=== PATIENT | male | born 1935 | race Two or more races ===

== ENCOUNTER → 2024-04-17 | Outpatient (CLI) | payer MEDICARE, BC, SELFPAY ==
[2024-04-20 22:02] LABS: PSA, Free 1.03 ng/mL; PSA, Total 8.9 ng/mL (< OR = 4.0)
[2024-04-21 06:52] LABS: PSA, % Free 12 % (calc) (>25)
== END | disposition home or self-care (01) ==
LOC: COPL 16:32
PROVIDERS: PCP Internal Medicine; Referring Provider Urology; Visit Provider Urology
DX: N40.1 Benign prostatic hyperplasia with lower urinary tract symptoms (principal)
CPT/HCPCS: 36415; 84153; 84154

== ENCOUNTER → 2024-04-21 | Outpatient (BNVA) | payer MEDICARE, BC, SELFPAY | END | disposition home or self-care (01) | PROVIDERS: PCP Internal Medicine Cardiovascular Disease; Referring Provider Internal Medicine Cardiovascular Disease; Visit Provider Urology | DX: R97.20 Elevated prostate specific antigen [PSA] (principal); I48.91 Unspecified atrial fibrillation; I10 Essential (primary) hypertension; E78.00 Pure hypercholesterolemia, unspecified; E11.9 Type 2 diabetes mellitus without complications | CPT/HCPCS: 99212; G0463 ==

== ENCOUNTER → 2024-05-25 | Outpatient (CLI) | payer MEDICARE, SELFPAY ==
[2024-05-25 12:09] LABS: Collection Type, Urine Clean Catch
[2024-05-25 12:35] LABS: Bilirubin,Urine Negative (Negative); Blood,Urine Negative (Negative); Clarity,Urine Clear (Clear/Hazy); Color,Urine Lt-Yellow (Lt Yel-Yel); Glucose, Urine Negative (Negative); Ketones,Urine Negative (Negative); Leukocyte Esterase,Urine Negative (Negative); Nitrite,Urine Negative (Negative); PH,Urine 7.5 (5.0-7.0); Protein,Urine Negative (Neg - Trace); RBC,Urine 2 /hpf (0-3); Squamous Epithelial Cell,Urine 1 /hpf (0-5); Urobilinogen,Urine Negative mg/dL (0.0-1.0); WBC,Urine 2 /hpf (0-5)
[2024-05-25 12:38] LABS: Albumin, Serum 4.6 gm/dL (3.4-4.8); Anion Gap 7 (7-16); BUN/Creatinine Ratio 21 Ratio (12-20); Blood Urea Nitrogen 30 mg/dL (9-23); Calcium 9.6 mg/dL (8.3-10.6); Calcium (Corrected) 9.6 mg/dL (8.5-10.1); Carbon Dioxide 29.2 mMol/L (20.0-31.0); Chloride 103 mMol/L (98-107); Creatinine (Component) 1.4 mg/dL (0.6-1.3); Glucose 106 mg/dL (74-106); Osmolality,Calculated 283 (275-295); Parathyroid Hormone Intact 95.7 pg/ml (18.5-88.0); Phosphorous 3.3 mg/dL (2.4-5.1); Potassium 5.2 mMol/L (3.4-5.1); Sodium 139 mMol/L (136-145); eGFR 49 See Note
[2024-05-25 12:42] LABS: Creatinine MALB Rnd Ur 19 mg/dL (30-125); Microalbumin Creat Ratio 68 mg/gCrea (<30); Microalbumin, Random Urine 13 mg/L (0-300)
== END | disposition home or self-care (01) ==
PROVIDERS: PCP Internal Medicine; Referring Provider Internal Medicine; Visit Provider Internal Medicine
DX: I12.9 Hypertensive chronic kidney disease with stage 1 through stage 4 chronic kidney disease, or unspecified chronic kidney disease (principal); E11.22 Type 2 diabetes mellitus with diabetic chronic kidney disease; N18.30 Chronic kidney disease, stage 3 unspecified
CPT/HCPCS: 36415; 80069; 81001; 82043; 82570; 83970

== ENCOUNTER → 2024-06-02 | Outpatient (CLI) | payer MEDICARE, SELFPAY ==
--- NOTE | 2024-06-02 15:00 | XR_ITS ---
Examination: Retroperitoneal ultrasound, complete Technique: Multiple high resolution grayscale images of the retroperitoneum obtained, including kidneys and bladder. Exam date and time:June 02, 2024 1515 hrs. Indications: Acute renal insufficiency on laboratory examination May 25, 2024 Findings: Right kidney 9.5 x 7.1 x 7.3 cm cortex 1.7 cm Multiple renal cysts, the largest in the lower pole 15 x 17 mm Solid mass in the anterior mid lateral kidney 9 x 8 x 1.1 cm hyperechoic Left kidney 10.8 x 4.9 x 5.1 cm cortex 1.2 cm Upper pole cyst 21 mm Moderate bilateral renal parenchymal scar formation No bladder mass or bladder calculi Bladder prevoid volume 2 38 cc Prostate volume 24 cc, suspicious for solid mass anterior to the prostate 16 x 19 x 27 mm Impression: Recommend CT scan abdomen pelvis post intravenous contrast to assess hyperechoic mass left kidney 9 x 8 x 11 mm as well as to exclude solid mass anterior to the prostate 16 x 19 x 27 mm
== END | disposition home or self-care (01) ==
LOC: CDIM 14:47
PROVIDERS: PCP Internal Medicine; Referring Provider Internal Medicine; Visit Provider Internal Medicine
DX: N28.89 Other specified disorders of kidney and ureter (principal)
CPT/HCPCS: 76770

== ENCOUNTER 2024-06-04 22:02 | Emergency (ER) | payer MEDICARE, SELFPAY ==
[2024-06-04 22:03] VITALS: BP 216/108; PULSE 65; RESP 16; TEMP 36.3; O2SAT 99; BMI 25.8
--- NOTE | 2024-06-04 22:12 | EDRME_ITS ---
Rapid Medical Screening Exam E Arrival date/time: 06/04/24 22:02 CC: Hypertension mild headache HPI onset approximately 4:00 today, the patient is not under any distress took his amiodarone this morning denies chest pain shortness of breath or difficulty breathing no prior history of bed hypertension as such. Patient is awake alert oriented EMS report hypertension but no other abnormal lab results. Review of the laboratory records show blood drawn on May 25 that showed a mildly elevated creatinine of 1.4. Currently the patient is resting comfortably will order CMP and urine to determine if there are no signs of endorgan damage. Patient is awake alert oriented nontoxic- appearing and not in any acute distress. Time Seen by Provider: 06/04/24 22:08 Vital signs: Vital Signs Temperature 97.4 F 06/04/24 22:03 Pulse Rate 65 06/04/24 22:03 Respiratory Rate 16 06/04/24 22:03 Blood Pressure 216/108 H 06/04/24 22:03 Pulse Oximetry (%) 99 06/04/24 22:03 Oxygen Delivery Method Room Air 06/04/24 22:03
[2024-06-04 22:23] VITALS: PULSE 68; RESP 18; O2SAT 99
--- NOTE | 2024-06-04 22:30 | EDNOTE_ITS ---
ED Abdominal Pain RME/HPI General Chief Complaint: Abdominal Pain Stated complaint: HYPERTENSION Time seen by provider: 06/04/24 22:08 Arrival date/time: 06/04/24 22:02 Source: patient Mode of arrival: ambulatory Limitations: no limitations RME / HPI RME / HPI narrative: 06/04/24 22:02 CC: Hypertension mild headache HPI onset approximately 4:00 today, the patient is not under any distress took his amiodarone this morning denies chest pain shortness of breath or difficulty breathing no prior history of bed hypertension as such. Patient is awake alert oriented EMS report hypertension but no other abnormal lab results. Review of the laboratory records show blood drawn on May 25 that showed a mildly elevated creatinine of 1.4. Currently the patient is resting comfortably will order CMP and urine to determine if there are no signs of endorgan damage. Patient is awake alert oriented nontoxic- appearing and not in any acute distress. Dr. Sawyer?s Main ED Evaluation: An 88-year-old male with a history of hypertension, accompanied by his son, presents to the emergency department via ambulance for evaluation of elevated blood pressure. The patient reports that he took his blood pressure medication as scheduled today; however, upon checking his blood pressure this evening, he noted it was elevated. He contacted Dr. Capone, who advised him to take an additional 5 mg of Norvasc, which he took at 7 PM. Upon rechecking his blood pressure, he found no improvement and subsequently took another 5 mg of Norvasc. Due to the persistent elevation and lack of improvement, his family became concerned and activated EMS for further evaluation. The patient denies any associated symptoms, including pain. No additional medical complaints were reported. Related Data Home Medications ?Medication ?Instructions ?Recorded ?Confirmed metformin 1,000 mg tablet 1,000 mg PO QDAC #0 tabs 02/26/14 03/06/24 (Glucophage) amiodarone 200 mg tablet 200 mg PO QDAY 07/24/19 03/06/24 atorvastatin 10 mg tablet (Lipitor) 10 mg PO QDAY 09/06/23 03/06/24 Allergies Allergy/AdvReac Type Severity Reaction Status Date / Time Sulfa (Sulfonamide Allergy Mild Rash Verified 03/06/24 10:50 Antibiotics) Review of Systems Review of Systems Systems Reviewed: All systems reviewed, normal except as documented ED Exam Narrative Physical exam: GENERAL APPEARANCE: AxOx4, generally well-appearing, no acute distress. HEENT: NC, AT. MMM. EOMI, clear conjunctiva, oropharynx clear. NECK: Supple without lymphadenopathy. No stiffness or restricted ROM. HEART: Normal rate and regular rhythm, normal S1/S1, no m/r/g LUNGS: CTAB, moving air well. No crackles or wheezes are heard. ABDOMEN: Soft, nontender, nondistended with good bowel sounds heard. BACK: No midline C/T/L spine pain or deformity, No CVAT, no obvious deformity. EXTREMITIES: Without cyanosis, clubbing or edema. MUSCULOSKELETAL: FROM of all major joints, no chest tenderness NEUROLOGICAL: Grossly nonfocal. Alert and oriented, moving all 4 extremities. CN not formally tested but appear grossly intact. Observed to ambulate with normal gait. Skin: Warm and dry without any rash. General Limitations: Present no limitations Course Quality Measures none Orders Category Date Time Status Saline [Insert IV] NOW Care 06/04/24 22:09 Active CMP [Comprehensive Metabolic Panel] Stat Lab 06/04/24 22:18 Completed Urinalysis Stat Lab 06/04/24 22:09 Ordered hydrALAZINE INJ [Apresoline Inj] Med 06/04/24 22:09 Discontinued 20 mg IV X1 ONE Vital Signs Vital signs: Vital Signs Temperature 97.4 F 06/04/24 22:03 Pulse Rate 65 06/04/24 22:03 Respiratory Rate 16 06/04/24 22:03 Blood Pressure 216/108 H 06/04/24 22:03 Pulse Oximetry (%) 99 06/04/24 22:03 Oxygen Delivery Method Room Air 06/04/24 22:03 Abdominal Pain MDM MDM Narrative MDM Narrative:: Scribe Attestation: I, Rosalia Cuba, am scribing for and in the presence of Dr. Sawyer. Provider Notation: Although this document has been carefully reviewed, there may still be some phonetic and other typographical errors. These errors are purely grammatical due to imperfections in the software program and should not be construed in any way to compromise the substance of the patient's medical care during this visit. Patient data External records reviewed:: [facility] previous records and EMS form Clinical information provided by:: patient and EMS Social determinants that could affect healthcare access:: none Patient has the following chronic illnesses:: See PMH How is presenting disease/condition affected by chronic disease/condition?: exacerbated by Evaluation data The following diagnostics were reviewed and interpreted by me:: lab results Lab and/or radiology exams considered but not ordered:: n/a Interpretation Summary: See narrative Medications / Prescriptions Medications or Prescriptions considered but not ordered:: n/a Medication administrations:: Medication Administration History Discontinued Medications Hydralazine HCl (Hydralazine Inj 20 Mg/Ml Vial) 20 mg IV X1 ONE Stop: 06/04/24 22:10 Last Admin: 06/04/24 22:34 Dose: 20 mg Documented By: MC as above Consultations Consultation(s) initiated? (list below): No Diagnosis Differential diagnosis abdominal pain: other (Hypertension, Hypertension urgency, Hypertension emergency) Most likely diagnosis given after review of the tests above:: Hypertension Admission Indicated Admission indicated?: not indicated Admission Request Was there a request for admission?: No Disposition Plan Disposition Plan: Discharge Discharge Attestation Discharge Attestation: The patient and all family members were given an opportunity to ask questions and understood the discharge instructions. Discharge instructions specifically effects, indications for sooner follow up or return to the emergency department, and the expected course of current diagnosis. Patient condition: Stable Discharge Plan Plan Patient Disposition: HOME (Self Care) Prescriptions/Referrals Prescriptions/Med Rec: No Action atorvastatin [Lipitor] 10 mg tablet 10 mg PO QDAY metformin [Glucophage] 1,000 MG tablet 1,000 mg PO QDAC Qty: 0 amiodarone 200 mg Tablet 200 mg PO QDAY Problem List Clinical Impression: Hypertension Patient/Caregiver Discharge Instructions Education Materials: ED Hypertension, Established Additional Instructions: Follow-up with your primary care doctor in 1 to 2 days for recheck. You can return to the emergency department sooner symptoms worsen or if you notice any new, concerning issues. Print Language: Upper Sorbian Stand Alone Forms: [facility] Award Info., Patient Portal Info Letter
[2024-06-04 22:34] VITALS: BP 226/109; PULSE 64
[2024-06-04] MEDS: hydrALAZINE INJ 20 MG/ML VIAL IV (22:34)
[2024-06-04 23:03] VITALS: BP 139/71; PULSE 69; RESP 18; O2SAT 98
[2024-06-04 23:10] LABS: Alanine Aminotransferase 29 U/L (10-49); Albumin, Serum 4.7 gm/dL (3.4-4.8); Albumin/Globulin Ratio 1.4 (1.2-2.2); Alkaline Phosphatase 73 U/L (46-116); Anion Gap 8 (7-16); Aspartate Amino Transferase 28 U/L (0-34); BUN/Creatinine Ratio 17 Ratio (12-20); Bilirubin,Total 0.5 mg/dL (0.3-1.2); Blood Urea Nitrogen 22 mg/dL (9-23); Calcium 10.3 mg/dL (8.3-10.6); Calcium (Corrected) 10.3 mg/dL (8.5-10.1); Carbon Dioxide 25.8 mMol/L (20.0-31.0); Chloride 105 mMol/L (98-107); Creatinine (Component) 1.3 mg/dL (0.6-1.3); Estimated Creatinine Clearance 38.7 mL/min (>60); Globulin 3.4 gm/dL (2.3-3.5); Glucose 110 mg/dL (74-106); Osmolality,Calculated 281 (275-295); Potassium 4.5 mMol/L (3.4-5.1); Sodium 139 mMol/L (136-145); Total Protein 8.1 gm/dL (5.7-8.2); eGFR 53 See Note
== END 2024-06-04 23:20 | disposition home or self-care (01) ==
LOC: SERX 23:28
PROVIDERS: Registered Nurse General Practice; Emergency Provider Emergency Medicine; PCP Internal Medicine
DX: I10 Essential (primary) hypertension (principal)
CPT/HCPCS: 36415; 80053; 81001; 99284; J0360

== ENCOUNTER 2024-06-16 10:24 | Emergency (ER) | payer MEDICARE, BC, SELFPAY ==
[2024-06-16 10:43] VITALS: PULSE 66; RESP 19; O2SAT 97
[2024-06-16 10:51] VITALS: BP 131/60; PULSE 70; RESP 16; TEMP 33.3; O2SAT 98
[2024-06-16 10:52] VITALS: BMI 25.1
[2024-06-16 11:04] VITALS: TEMP 33.3
[2024-06-16] MEDS: ONDANSETRON INJ 2 MG/ML INJ 2 ML 4 MG IV (11:24)
[2024-06-16] MEDS: MORPHINE SULF INJ 10 MG/ML VIAL 4 MG IVP (11:26)
--- NOTE | 2024-06-16 11:27 | EKG_ITS ---
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
--- NOTE | 2024-06-16 11:33 | XR_ITS ---
Examination: AP chest single view TECHNIQUE: AP portable upright chest single view Exam date and time: June 16, 2024 1137 hours Comparison March 10, 2014 INDICATIONS: Shortness of breath today. FINDINGS: Normal heart size Accentuation basilar bronchovascular markings Prominent osteopenia No pulmonary edema IMPRESSION: Bibasilar bronchitis versus early bronchopneumonia, clinical correlation advised
--- NOTE | 2024-06-16 11:33 | XR_ITS ---
Examination: CT chest, without intravenous contrast. CT abdomen, without intravenous contrast. CT pelvis, without intravenous contrast. 2-D sagittal and coronal reconstructions. 3-D reconstructions. Date and time of exam:June 16, 2024 1252 hours INDICATIONS: Patient fell today with injury to the chest and abdomen, chest pain abdomen pain CTDI vol (mgy) 8.53 DLP (MGycm)646 Technique: Multiple CT images, 3.0 mm slice thickness, obtained chest, abdomen, pelvis, with the high-resolution 64 slice scanner.. Sagittal and coronal 2-D reconstructions are obtained. 3-D reconstructions Low dose protocols were performed. One or more of the following dose reduction techniques were used; automated exposure control, adjustment of the mA and/or KV according to patient size, use of iterative reconstruction technique. Findings: Thoracic aorta pulmonary arteries appear intact on this noncontrast study No pneumothorax or hemothorax Significant vascular congestion The manubrium, the body the sternum are intact No thoracic vertebral body compression fracture No acute rib fractures No liver splenic or renal laceration, no perinephric hematoma Aorta normal size and intact Absent gallbladder No pancreatic mass No free blood in the abdomen Negative for pneumoperitoneum Normal appendix 20 mm fat-containing umbilical hernia Colonic diverticulosis Urinary bladder intact Transverse prostate dimension 4.6 cm Hips bones of the pelvis sacral segments lumbar vertebral bodies intact Advanced disc narrowing L5-S1 IMPRESSION: Thoracic aorta pulmonary arteries intact No hemopericardium pneumothorax or hemothorax Prominent vascular congestion No abdominal parenchymal laceration Abdominal aorta intact No free blood in the abdomen or pelvis Osseous structures appear intact
--- NOTE | 2024-06-16 11:33 | XR_ITS ---
Examination: CT brain head without contrast. 2-D sagittal coronal reconstructions Date and time of exam:June 16, 2024 1240 hours INDICATIONS: Patient fell yesterday with injury to the head, head pain COMPARISON: March 10, 2024 CTDI: vol (mGy):51.9 DLP: (mGycm):1090 Technique: Multiple CT axial sections of the brain have been obtained, 5 mm slice thickness. Contrast has not been administered. 2-D sagittal, coronal reconstructions have been obtained Low dose protocols were performed. One or more of the following dose reduction techniques were used; automated exposure control, adjustment of the mA and/or KV according to patient size, use of iterative reconstruction technique. Findings: No significant ventricular enlargement. Intra-axial or extra-axial hemorrhage density is not seen. No mass effect or midline shift Basal cisterns are not remarkable. Fourth ventricle is midline. Cranial vault intact. Impression: Negative for acute hemorrhage, mass effect or midline shift
--- NOTE | 2024-06-16 11:33 | XR_ITS ---
Examination: CT cervical spine without contrast 2-D sagittal reconstructions 2-D coronal reconstructions 3-D reconstructions. Exam date and time:June 16, 2024 1240 hours INDICATIONS: Patient fell today with into the neck, neck pain CTDI:vol (mGy) 7.82 DLP: (mGycm) 171 Technique: Multiple 2 mm axial sections of the cervical spine have been obtained. The coronal and sagittal reconstructions have been obtained. 3-D reconstructions have been obtained. Low dose protocols were performed. One or more of the following dose reduction techniques were used; automated exposure control, adjustment of the mA and/or KV according to patient size, use of iterative reconstruction technique. Findings: Axial sections demonstrate intact base of the skull. C1 exhibit satisfactory relationship to the odontoid. No acute cervical vertebral body fracture seen. Alignment posterior spinous processes satisfactory. Impression: No acute cervical fracture.
[2024-06-16 11:51] LABS: Base Excess, Venous -2 (-3-3); O2 Saturation, Venous 98 % (96-97); PCO2, Venous 43 mmHg (36-56); PO2, Venous 131 mmHg (15-58); pH, Venous 7.35 (7.33-7.66)
[2024-06-16 11:52] LABS: Lactate (Lactic Acid) 1.3 mMol/L (0.4-2.0)
[2024-06-16 11:55] LABS: Basophils % (Auto) 1 % (0-2.5); Eosinophils # (Auto) 0.2 Thou/mm3 (0.0-0.5); Eosinophils % (Auto) 2 % (0-10); Hematocrit 41.5 % (41.0-53.0); Hemoglobin 14.4 g/dL (13.5-16.0); Immature Granulocytes % (Auto) 0 % (0-0); Immature Granulocytes Auto 0.02 Thou/mm3 (0.00-0.00); Lymphocytes # (Auto) 1.9 Thou/mm3 (1.0-4.8); Lymphocytes % (Auto) 28 % (10-50); Mean Corpuscular HGB Conc 34.7 g/dl (31.0-37.0); Mean Corpuscular Hemoglobin 29.5 pg (25.0-35.0); Mean Corpuscular Volume 85 fL (80-100); Monocytes # (Auto) 0.6 Thou/mm3 (0.0-0.8); Monocytes % (Auto) 9 % (0-12); Neutrophils # (Auto) 4.1 Thou/mm3 (1.8-7.7); Neutrophils % (Auto) 60 % (37-80); Nucleated Red Blood Cell % 0 /100 WBC (0); Platelet Count 184 Thou/mm3 (140-440); RDW Standard Deviation 45.4 fL (35.1-43.9); Red Blood Count 4.88 Miln/mm3 (4.50-5.90); White Blood Count 6.9 Thou/mm3 (3.8-10.6)
[2024-06-16] MEDS: HYDROmorphone INJ 2 MG/ML VIAL 1 MG IVP (12:03)
--- NOTE | 2024-06-16 12:05 | PD.EDHA ---
ED Headache RME/HPI General Chief Complaint: Headache Stated Complaint: HEADACHE/ WEAKNESS Time Seen by Provider: 06/16/24 11:15 Arrival date/time: 06/16/24 10:24 RME / HPI RME / HPI Narrative: This section includes all my notes and documentations, including HPI, PE, and ED course.? Thomas Ash MD HPI: 88 year old male here with severe headache in the back of the neck area since last night. Was battling high BP at home all night last night. Taking multiple medications, including subligual NTG and oral BP medications, repeating as needed with high BP. No speech or visual impairment. No loss of power in the arms or legs. No chest pain or SOB. Some nausea, no vomiting. No neck pain or stiffness. No other complaints. ROS: All negative except as documented in HPI. Physical Exam: General:? Alert and oriented.? In obvious pain. Eyes:? Conjunctivae and lids clear.? PERRL. EOMI. ENT:? No nasal congestion.? Neck:? Supple.? No carotid bruit. No JVD. Heart:? RRR.? Lungs:? No respiratory distress.? Good air movement.? No rhonchi, wheezing, rales.?? Abdomen:? Soft and nontender.?? Legs:? No clubbing, cyanosis, edema.? Skin:? Warm and dry.?? Neuro:? Alert and oriented X 3.??CN 2-12 grossly normal. No peripheral motor deficits. I reviewed all diagnostic test results. My interpretation of the EKG is?NSR (61 bpm) with no ST-T changes. My interpretation of the chest x-ray is no acute findings. My review of the head CT report is?no acute hemorrhage, mass effect, or midline shift. My review of the cervical spine CT report is no acute cervical fracture. My review of the chest/abdomen/pelvic CT report is no hemopericardium pneumothorax or hemothorax. Blood tests unremarkable. At this point, diagnoses include?severe headache (most likely from lower BP at home too rapidly). Treatment here included?Zofran and Morphine and Dilaudid. Significant improvement noted. Based on my best medical judgment, made decision no further evaluation or treatment indicated at this time.? Patient understands and agrees to the discharge instructions customized and printed, see below. Discharge Instructions from Dr. Ash printed for you: 1. After extensive evaluation, fortunately there is no life-threatening condition. Such as stroke or brain tumor or heart attack or blood poisoning. 2. And there is no very serious injury, such as brain injury or broken neck or broken back or other broken bone or internal organ injury. 3. Most of your symptoms may have been related to taking too many BP medications and lowering your BP too fast. 4. For your high BP, take clonidine 0.1 mg pill(s) about 12 hours apart in the morning and at bedtime as needed based on SBP (higher number of BP): 1 pill if SBP > 130. 2 pills if SBP > 150. 3 pills if SBP > 170. 4 pills if SBP > 190. Do this until you are seen by your private doctor. 5. See your private doctor on 06/19/2024 for recheck and further care. Ask to review all test results and official radiology reports, to make sure you receive all necessary follow-ups and monitoring. 6. Seek immediate medical care with worsening or with any concerns. Thomas Ash MD Related Data Home Medications ?Medication ?Instructions ?Recorded ?Confirmed metformin 1,000 mg tablet 1,000 mg PO QDAC #0 tabs 02/26/14 03/06/24 (Glucophage) amiodarone 200 mg tablet 200 mg PO QDAY 07/24/19 03/06/24 atorvastatin 10 mg tablet (Lipitor) 10 mg PO QDAY 09/06/23 03/06/24 Previous Rx's ?Medication ?Instructions ?Recorded acetaminophen 300 mg-codeine 30 mg 2 tab PO TID PRN pain #20 tabs 06/16/24 tablet clonidine HCl 0.1 mg tablet 0.1 mg PO BID #60 tabs 06/16/24 Allergies Allergy/AdvReac Type Severity Reaction Status Date / Time Sulfa (Sulfonamide Allergy Mild Rash Verified 03/06/24 10:50 Antibiotics) Review of Systems Review of Systems Systems Reviewed: All systems reviewed, normal except as documented Past Medical History Past Medical History CARDIAC: Positive Atrial Fibrillation, Hypercholesterolemia and Hypertension GASTROINTESTINAL: Positive Gastroesophageal Reflux Disease ENDOCRINE: Positive Diabetes Mellitus Type 2 Social History SMOKING STATUS: Never smoker ED Exam Narrative Physical exam: As noted in HPI Course Quality Measures none Orders Category Date Time Status Bedside COVID-19 Antigen Test NOW Care 06/16/24 11:27 Completed Bedside Influenza A&B Antigen Test NOW Care 06/16/24 11:27 Completed EKG (ED ONLY) *Do not use* NOW Care 06/16/24 11:27 Completed Initiate Warming Therapy NOW Care 06/16/24 11:04 Completed Insert IV NOW Care 06/16/24 11:13 Completed Straight [In and Out Catheter] X1 Care 06/16/24 11:[address] cervical spine wo con Stat Exams 06/16/24 11:[address] chest abdomen pelvis wo Stat Exams 06/16/24 11:[address] head/brain wo con Stat Exams 06/16/24 11:33 Completed EKG (ED Only) Stat Exams 06/16/24 11:27 Draft XR chest 1V portable Stat Exams 06/16/24 11:33 Completed Amylase Stat Lab 06/16/24 11:25 Completed BNP [B-Type Natriuretic Peptide] Stat Lab 06/16/24 11:25 Completed Bilirubin,Direct Stat Lab 06/16/24 11:25 Completed Blood Culture (Lab) Stat Lab 06/16/24 12:00 Results CBC Stat Lab 06/16/24 11:25 Completed CRP [C-Reactive Protein] Stat Lab 06/16/24 11:25 Completed Comprehensive Metabolic Panel Stat Lab 06/16/24 11:25 Completed ESR [Sed Rate (ESR)] Stat Lab 06/16/24 11:25 Completed Lactate (Lactic Acid) Stat Lab 06/16/24 11:25 Completed Lipase Stat Lab 06/16/24 11:25 Completed Magnesium Stat Lab 06/16/24 11:25 Completed PT [Prothrombin Time with INR] Stat Lab 06/16/24 11:25 Completed PTT [Partial Thromboplastin Time] Stat Lab 06/16/24 11:25 Completed Procalcitonin Stat Lab 06/16/24 11:25 Completed TSH [Thyroid Stimulating Hormone] Stat Lab 06/16/24 11:25 Completed Troponin I Stat Lab 06/16/24 11:25 Completed VBG [Venous Blood Gas] Stat Lab 06/16/24 11:25 Completed HYDROmorphone INJ [Dilaudid Inj] Med 06/16/24 11:46 Discontinued 1 mg IVP X1 ONE Morphine Inj Med 06/16/24 11:14 Discontinued 4 mg IVP X1 ONE Ondansetron Inj [Zofran Inj] Med 06/16/24 11:14 Discontinued 4 mg IV X1 ONE Sodium Chloride 0.9% 1000 ml [Ns] 1,000 ml Med 06/16/24 12:46 Discontinued IV 999 mls/hr Vital Signs Vital signs: Vital Signs Temperature 92.0 F L 06/16/24 10:51 Pulse Rate 70 06/16/24 10:51 Respiratory Rate 16 06/16/24 10:51 Blood Pressure 131/60 H 06/16/24 10:51 Pulse Oximetry (%) 98 06/16/24 10:51 Oxygen Delivery Method Room Air 06/16/24 10:51 Oxygen Flow Rate 97 06/16/24 10:51 Pulse ox is 97% on room air which is adequate. Headache Patient data External records reviewed:: [facility] previous records (I reviewed ED visit on 06/04/2024) Clinical information provided by:: patient and family (Daughter adds to hpi ) Social determinants that could affect healthcare access:: none Patient has the following chronic illnesses:: HTN, DM How is presenting disease/condition affected by chronic disease/condition?: exacerbated by Evaluation data The following diagnostics were reviewed and interpreted by me:: lab results, radiology exam(s) and EKG tracing(s) (My interpretation of the EKG: NSR (61 bpm) with no ST-T changes. Thomas Ash MD) Lab and/or radiology exams considered but not ordered:: None Interpretation Summary: My interpretation of the chest x-ray is bibasilar bronchitis versus early bronchopneumonia. My review of the head CT report is?no acute hemorrhage, mass effect, or midline shift. My review of the cervical spine CT report is no acute cervical fracture. My review of the chest/abdomen/pelvic CT report is no hemopericardium pneumothorax or hemothorax. Medications / Prescriptions Medications or Prescriptions considered but not ordered:: None Medication administrations:: Medication Administration History Discontinued Medications Hydromorphone HCl (Hydromorphone Inj 2 Mg/Ml Vial) 1 mg IVP X1 ONE Stop: 06/16/24 11:47 Last Admin: 06/16/24 12:03 Dose: 1 mg Documented By: DB Sodium Chloride (Ns) 1,000 mls @ 999 mls/hr IV .Q1H1M ONE Stop: 06/16/24 13:46 Last Infusion: 06/16/24 15:05 Dose: Infused Documented By: Admin: 06/16/24 13:14 Dose: 999 mls/hr Documented By: ANTHONY Morphine Sulfate (Morphine Sulf Inj 10 Mg/Ml Vial) 4 mg IVP X1 ONE Stop: 06/16/24 11:15 Last Admin: 06/16/24 11:26 Dose: 4 mg Documented By: ANTHONY Ondansetron HCl (Ondansetron Inj 2 Mg/Ml Inj 2 Ml) 4 mg IV X1 ONE; Protocol Stop: 06/16/24 11:15 Last Admin: 06/16/24 11:24 Dose: 4 mg Documented By: ANTHONY Patient given Zofran, morphine, dilaudid, IV fluids Consultations Consultation(s) initiated? (list below): No Diagnosis Differential diagnosis headache: migraine, tension headache, subarachnoid hemorrhage, headache and sinusitis Most likely diagnosis given after review of the tests above:: Headache from lower BP too rapidly at home Admission Indicated Admission indicated?: not indicated Explain why admission is indicated or not indicated:: Does not meet admission criteria. Admission Request Was there a request for admission?: No Disposition Plan Disposition Plan: Discharge Discharge Attestation Discharge Attestation: The patient and all family members were given an opportunity to ask questions and understood the discharge instructions. Discharge instructions specifically effects, indications for sooner follow up or return to the emergency department, and the expected course of current diagnosis. Patient condition: Stable Discharge Plan Plan Patient Disposition: HOME (Self Care) Prescriptions/Referrals Prescriptions/Med Rec: New clonidine HCl 0.1 mg tablet 0.1 mg PO BID Qty: 60 0RF acetaminophen-codeine 300-30 mg tablet 2 tab PO TID MDD 6 PRN (Reason: pain) Qty: 20 0RF No Action atorvastatin [Lipitor] 10 mg tablet 10 mg PO QDAY metformin [Glucophage] 1,000 MG tablet 1,000 mg PO QDAC Qty: 0 amiodarone 200 mg Tablet 200 mg PO QDAY Referrals: Mulu Denise MD [Primary Care Provider] - In 1 week Problem List Clinical Impression: Headache Patient/Caregiver Discharge Instructions Discharge Activity: activity as tolerated Education Materials: ED Hypertension, Established Additional Instructions: Discharge Instructions from Dr. Ash printed for you: 1. After extensive evaluation, fortunately there is no life-threatening condition. Such as stroke or brain tumor or heart attack or blood poisoning. 2. And there is no very serious injury, such as brain injury or broken neck or broken back or other broken bone or internal organ injury. 3. Most of your symptoms may have been related to taking too many BP medications and lowering your BP too fast. 4. For your high BP, take clonidine 0.1 mg pill(s) about 12 hours apart in the morning and at bedtime as needed based on SBP (higher number of BP): 1 pill if SBP > 130. 2 pills if SBP > 150. 3 pills if SBP > 170. 4 pills if SBP > 190. Do this until you are seen by your private doctor. 5. See your private doctor on 06/19/2024 for recheck and further care. Ask to review all test results and official radiology reports, to make sure you receive all necessary follow-ups and monitoring. 6. Seek immediate medical care with worsening or with any concerns. Print Language: Chadian Stand Alone Forms: [facility] Award Info., Patient Portal Info Letter
[2024-06-16 12:14] LABS: INR 1.1 (0.9-1.3); Partial Thromboplastin Time 32.4 Seconds (22.0-36.0); Prothrombin Time 11.6 Seconds (9.0-12.2)
[2024-06-16 12:20] LABS: B-Type Natriuretic Peptide 68 pg/mL (0-100)
[2024-06-16 12:25] LABS: Alanine Aminotransferase 34 U/L (10-49); Albumin, Serum 4.6 gm/dL (3.4-4.8); Albumin/Globulin Ratio 1.5 (1.2-2.2); Alkaline Phosphatase 73 U/L (46-116); Anion Gap 10 (7-16); Aspartate Amino Transferase 29 U/L (0-34); BUN/Creatinine Ratio 23 Ratio (12-20); Bilirubin,Direct 0.1 mg/dL (0.0-0.3); Bilirubin,Total 0.3 mg/dL (0.3-1.2); Blood Urea Nitrogen 34 mg/dL (9-23); Calcium 9.7 mg/dL (8.3-10.6); Calcium (Corrected) 9.7 mg/dL (8.5-10.1); Carbon Dioxide 23.1 mMol/L (20.0-31.0); Chloride 102 mMol/L (98-107); Creatinine (Component) 1.5 mg/dL (0.6-1.3); Estimated Creatinine Clearance 34.7 mL/min (>60); Glucose 130 mg/dL (74-106); Lipase 45 U/L (12-53); Magnesium 2.2 mg/dL (1.6-2.6); Osmolality,Calculated 279 (275-295); Sodium 135 mMol/L (136-145); Thyroid Stimulating Hormone 5.01 uIU/mL (0.55-4.78); Total Protein 7.6 gm/dL (5.7-8.2); Troponin I < 0.020 ng/mL (0.0-0.045); eGFR 45 See Note
[2024-06-16 13:00] VITALS: BP 113/52; PULSE 64; RESP 18; TEMP 34.6; O2SAT 92
[2024-06-16 13:00] LABS: Sed Rate (ESR) 10 mm/hr (0-20)
[2024-06-16] MEDS: SODIUM CHLORIDE 0.9% 1000 ML 1,000 ML 999 ML IV (13:14)
[2024-06-16 14:19] LABS: Amylase 75 U/L (30-118); C-Reactive Protein < 0.4 mg/dL (0.0-0.9); Procalcitonin 0.11 ng/ml (0.0-0.49)
[2024-06-16 15:34] VITALS: BP 106/58; PULSE 65; RESP 16; TEMP 36.6; O2SAT 95
== END 2024-06-16 15:35 | disposition home or self-care (01) ==
PROVIDERS: Emergency Provider Emergency Medicine; PCP Internal Medicine
DX: R51.9 Headache, unspecified (principal); R07.9 Chest pain, unspecified
CPT/HCPCS: 36415; 70450; 71045; 71250; 72125; 74176; 80053; 81001; 82150; 82248; 82803; 83605; 83690; 83735; 83880; 84145; 84443; 84484; 85025; 85610; 85652; 85730; 86140; 87040; 87400; 87634; 87811; 96361; 96374; 96375; 99284; J2270; J2405; J3490; J7030

== ENCOUNTER 2024-06-22 10:30 | Inpatient (IN) | payer MEDICARE, BC, SELFPAY ==
[2024-06-22 10:34] VITALS: BP 143/77; PULSE 52; RESP 17; TEMP 36.7; O2SAT 97; BMI 26.6
[2024-06-22 10:46] VITALS: PULSE 56; RESP 18; O2SAT 99
--- NOTE | 2024-06-22 11:07 | XR_ITS ---
Examination: CT abdomen and pelvis without contrast. Coronal 3-D reconstructions. Sagittal 2-D reconstructions. Date and time of exam:June 22, 2024 at 11:21 AM Comparison June 16, 2024 INDICATIONS: Onset generalized abdominal pain beginning 3 days ago CTDI: vol (mGy): 8.39 DLP: (mGycm): 529 Technique: Axial images of the abdomen have been obtained, 3 mm slice thickness Intravenous contrast material has not been administered. Low dose protocols were performed. One or more of the following dose reduction techniques were used; automated exposure control, adjustment of the mA and/or KV according to patient size, use of iterative reconstruction technique. Findings: Moderate vascular congestion No focal liver or splenic lesions Absent gallbladder. No pancreatic mass. Small bilateral renal cysts Mild to moderate bilateral renal parenchymal scar formation. Perinephric stranding. No hydronephrosis or ureteral calculi. Aorta normal size. Normal appendix. 6 mm fat-containing umbilical hernia. Colonic diverticulosis. No diverticulitis Intact urinary bladder. Transverse prostate dimension 4.4 cm Severe osteopenia Advanced degenerative disc disease L5-S1 Moderate narrowing hip joints IMPRESSION: Mild to moderate bilateral renal parenchymal scar formation Perinephric stranding, consider urinary tract infection No hydronephrosis or ureteral calculi Normal appendix Small fat-containing umbilical hernia Mild prostatomegaly.
--- NOTE | 2024-06-22 11:08 | PD.EDRME ---
Rapid Medical Screening Exam E Arrival date/time: 06/22/24 10:30 88-year-old male with a history of type 2 diabetes, hypertension, hyperlipidemia presents to the emergency room with a chief complaint of 8 out of 10 generalized epigastric pain x 3 days. I have greeted and performed a focused initial assessment of this patient. A comprehensive ED assessment and evaluation of the patient, analysis of all test results, and completion of the medical decision making process will be conducted by additional ED providers. Chief Complaint: Abdominal Pain Time Seen by Provider: 06/22/24 14:05 Vital signs: Vital Signs Temperature 98.0 F 06/22/24 10:34 Pulse Rate 52 L 06/22/24 10:34 Respiratory Rate 17 06/22/24 10:34 Blood Pressure 143/77 H 06/22/24 10:34 Pulse Oximetry (%) 97 06/22/24 10:34 Oxygen Delivery Method Room Air 06/22/24 10:34 Vital signs reviewed by provider: Yes
[2024-06-22 12:09] LABS: Basophils % (Auto) 0 % (0-2.5); Eosinophils # (Auto) 0.1 Thou/mm3 (0.0-0.5); Eosinophils % (Auto) 1 % (0-10); Hematocrit 41.8 % (41.0-53.0); Immature Granulocytes % (Auto) 0 % (0-0); Immature Granulocytes Auto 0.01 Thou/mm3 (0.00-0.00); Lymphocytes # (Auto) 1.6 Thou/mm3 (1.0-4.8); Lymphocytes % (Auto) 24 % (10-50); Mean Corpuscular HGB Conc 33.5 g/dl (31.0-37.0); Mean Corpuscular Volume 87 fL (80-100); Monocytes # (Auto) 0.4 Thou/mm3 (0.0-0.8); Monocytes % (Auto) 6 % (0-12); Neutrophils # (Auto) 4.6 Thou/mm3 (1.8-7.7); Neutrophils % (Auto) 70 % (37-80); Nucleated Red Blood Cell % 0 /100 WBC (0); Platelet Count 194 Thou/mm3 (140-440); RDW Standard Deviation 45.9 fL (35.1-43.9); Red Blood Count 4.82 Miln/mm3 (4.50-5.90); White Blood Count 6.6 Thou/mm3 (3.8-10.6)
[2024-06-22] MEDS: KETOROLAC INJ 60 MG/2 ML VIAL 30 MG IM (12:14)
[2024-06-22] MEDS: ONDANSETRON ODT 4 MG TABRAP PO (12:18)
[2024-06-22 12:41] LABS: Alanine Aminotransferase 55 U/L (10-49); Albumin, Serum 4.6 gm/dL (3.4-4.8); Albumin/Globulin Ratio 1.4 (1.2-2.2); Alkaline Phosphatase 81 U/L (46-116); Anion Gap 7 (7-16); Aspartate Amino Transferase 31 U/L (0-34); BUN/Creatinine Ratio 18 Ratio (12-20); Bilirubin,Total 0.3 mg/dL (0.3-1.2); Blood Urea Nitrogen 27 mg/dL (9-23); Calcium 9.9 mg/dL (8.3-10.6); Calcium (Corrected) 9.9 mg/dL (8.5-10.1); Carbon Dioxide 25.8 mMol/L (20.0-31.0); Chloride 101 mMol/L (98-107); Creatinine (Component) 1.5 mg/dL (0.6-1.3); Estimated Creatinine Clearance 32.4 mL/min (>60); Globulin 3.2 gm/dL (2.3-3.5); Glucose 186 mg/dL (74-106); Lipase 44 U/L (12-53); Osmolality,Calculated 278 (275-295); Potassium 4.5 mMol/L (3.4-5.1); Sodium 134 mMol/L (136-145); Total Protein 7.8 gm/dL (5.7-8.2); eGFR 45 See Note
[2024-06-22 12:56] LABS: Collection Type, Urine Clean Catch
[2024-06-22 13:07] LABS: Bilirubin,Urine Negative (Negative); Blood,Urine Negative (Negative); Clarity,Urine Clear (Clear/Hazy); Color,Urine Lt-Yellow (Lt Yel-Yel); Glucose, Urine 1+ (Negative); Ketones,Urine Negative (Negative); Leukocyte Esterase,Urine Positive (Negative); Nitrite,Urine Negative (Negative); PH,Urine 6.5 (5.0-7.0); Protein,Urine Trace (Neg - Trace); RBC,Urine 1 /hpf (0-3); Specific Gravity,Urine 1.014 (1.001-1.035); Squamous Epithelial Cell,Urine 1 /hpf (0-5); Urobilinogen,Urine Negative mg/dL (0.0-1.0); WBC,Urine 3 /hpf (0-5)
--- NOTE | 2024-06-22 13:22 | PD.EDABDPN ---
ED Abdominal Pain RME/HPI General Chief Complaint: Abdominal Pain Stated complaint: ABD PAIN Time seen by provider: 06/22/24 14:05 Arrival date/time: 06/22/24 10:30 Limitations: no limitations RME / HPI RME / HPI narrative: 06/22/24 10:30 88-year-old male with a history of type 2 diabetes, hypertension, hyperlipidemia presents to the emergency room with a chief complaint of 8 out of 10 generalized epigastric pain x 3 days. I have greeted and performed a focused initial assessment of this patient. A comprehensive ED assessment and evaluation of the patient, analysis of all test results, and completion of the medical decision making process will be conducted by additional ED providers. DR. NICOLE MAIN ED EVALUATION: 88-year-old male with history of type 2 diabetes, hypertension, hyperlipidemia, chronic renal insufficiency coming to the emergency department for evaluation of headache and chronic abdominal pain. The patient and family member at the side states that the patient started having dull intermittent abdominal pain for the last 3 to 4 days in the mid lower to mid area without radiation that was intermittent and worse with food. The patient rates the pain on and off a 10 out of 10. Nothing improves the pain but food made it worse. He denied any fevers or dysuria. No associated back pain, syncope, shortness of breath, or lower extremity swelling or palpitations. The patient was seen on the last week in May for increasing episodes of headache with associated back and neck pain that was relieved when he was put on clonidine. The patient states that every day he was put on a sliding scale of clonidine depending on what the level of his blood pressure and/or headache was. No vision changes, palpitations, lightheadedness, or new trauma. No lower extremity swelling or rash. The patient does not have a history of new headaches. The patient is taking amiodarone and Eliquis. He is compliant with all his other medications. Review of systems are negative for nausea vomiting and diarrhea your no sick contacts. No recent travel. Related Data Home Medications ?Medication ?Instructions ?Recorded ?Confirmed metformin 1,000 mg tablet 1,000 mg PO QDAC #0 tabs 02/26/14 03/06/24 (Glucophage) amiodarone 200 mg tablet 200 mg PO QDAY 07/24/19 03/06/24 atorvastatin 10 mg tablet (Lipitor) 10 mg PO QDAY 09/06/23 03/06/24 Previous Rx's ?Medication ?Instructions ?Recorded acetaminophen 300 mg-codeine 30 mg 2 tab PO TID PRN pain #20 tabs 06/16/24 tablet clonidine HCl 0.1 mg tablet 0.1 mg PO BID #60 tabs 06/16/24 Allergies Allergy/AdvReac Type Severity Reaction Status Date / Time Sulfa (Sulfonamide Allergy Mild Rash Verified 06/22/24 10:53 Antibiotics) Review of Systems Review of Systems Systems Reviewed: All systems reviewed, normal except as documented Narrative Review of Systems: GEN: No fever, no chills, no weight loss EYES: No discharge, no visual changes, no pain HEENT: No ear pain, no congestion, no sore throat PULM: No shortness of breath, no cough, no congestion CV: No chest pain, no dyspnea on exertion, no palpitations GI: No nausea, no vomiting, no diarrhea, + chronic abdominal pain/ mid epigastric area, no constipation : No frequency, no urgency and no dysuria MUSC/SKEL: No joint pain, no back pain SKIN: No rash PSYCH: No hallucinations, no depression HEME/LYMPH: No easy bleeding or bruising tendencies NEURO: No weakness, + headache Past Medical History Past Medical History NEUROLOGIC: Negative Seizures CARDIAC: Positive Atrial Fibrillation, Hypercholesterolemia and Hypertension; Negative Congestive Heart Failure RESPIRATORY: Negative Chronic Obstructive Pulmonary Disease (COPD) GASTROINTESTINAL: Positive Gastroesophageal Reflux Disease GENITOURINARY: Negative Renal Disease ENDOCRINE: Positive Diabetes Mellitus Type 2; Negative Diabetes Mellitus Type 1 OTHER HISTORY: Negative Blood Transfusions, Blood Transfusion Reaction or Anesthesia Reactions Family History OTHER FAMILY HX: Denies family history of heart disease Surgical History OTHER SURGICAL HX: Cholecystectomy Social History SOCIAL: Non-smoker SMOKING STATUS: Never smoker SUBSTANCE USE: does not use ALCOHOL: Never Travel History EBOLA RISK: No Past Medical History Comments PMH COMMENT: Patient history of cholecystectomy with 25 years ago ED Exam Narrative Physical exam: Patient lying in bed not diaphoretic, awake and talking full sentences. No obvious acute distress. General Limitations: Present no limitations General appearance: Present alert; Absent appears intoxicated, anxious or obtunded Head Head exam: Present atraumatic Eye Eye exam: Present normal appearance, EOMI and other (No photophobia); Absent scleral icterus ENT ENT exam: Present normal exam, normal oropharynx and mucous membranes moist Neck Neck exam: Present normal inspection, full ROM and other (no bruit); Absent tenderness or meningismus Chest Chest inspection: Present normal inspection and symmetric chest wall rise Respiratory Respiratory exam: Present normal lung sounds bilaterally; Absent respiratory distress, wheezes, stridor or accessory muscle use Cardiovascular Cardiovascular exam: Present regular rate, normal rhythm and normal heart sounds Abdominal Exam Abdominal exam: Present soft, rigidity, normal bowel sounds and hernia (No umbilical hernia); Absent distention, tenderness, guarding, rebound, Grijalva's sign or pulsatile mass Extremities Exam Extremities exam: Present normal inspection and full ROM Back Exam Back exam: Present normal inspection, full ROM and other; Absent tenderness, CVA tenderness (R) or CVA tenderness (L) Neurological Exam Neurological exam: Present alert, oriented X3, CN II-XII intact and other (No facial droop.) Psychiatric Psychiatric exam: Present normal affect and normal mood Skin Skin exam: Present warm, dry, intact and normal color Course Course Course Narrative: 1300: Morphine is ordered. Of note, the CT scan was ordered prior to my arrival. 1630: Patient is complaining of additional worsening headache with some neck pain that he has had with his headaches over the last 1 week. Neurological exam is normal and patient does not have any consensual photophobia, will add CT of the head without contrast, for possible atypical presentation of tumor or mass, CT cervical spine without contrast. The family member states that the patient always has slight low heart rate 50-60. Other consideration include, hypoperfusion causing headache as well as abdominal pain. Nurse reports EKG was completed, but I do not see it. 1743: Initial trop is pending and will send 3 hour troponin. EKG ordered, ? Unclear where initial EKG is.- No STEMI/ischemia 1900: ESR/CRP/Renal US ordered to r/o vasculitis. Resident made aware. Quality Measures none Orders Category Date Time Status COVID-19 Screening Questionnaire NOW Care 06/22/24 18:[address] Screening NOW Care 06/22/24 17:49 Active Decision to Admit X1 Care 06/22/24 18:30 Active EKG (ED ONLY) *Do not use* NOW Care 06/22/24 17:[address] abdomen pelvis wo con Stat Exams 06/22/24 11:[address] angio abdomen pelvis Stat Exams 06/22/24 17:[address] cervical spine wo con Stat Exams 06/22/24 16:[address] head/brain wo con Stat Exams 06/22/24 16:20 Completed CXRP [XR chest 1V portable] Stat Exams 06/22/24 13:57 Completed EKG (ED Only) Stat Exams 06/22/24 17:44 Draft US renal BI Stat Exams 06/22/24 19:36 Ordered CBC Stat Lab 06/22/24 11:53 Completed CMP [Comprehensive Metabolic Panel] Stat Lab 06/22/24 11:53 Completed CRP [C-Reactive Protein] Stat Lab 06/22/24 19:28 Ordered ESR [Sed Rate (ESR)] Stat Lab 06/22/24 19:28 Ordered Lactic Acid [Lactate (Lactic Acid)] Stat Lab 06/22/24 13:44 Completed Lipase Stat Lab 06/22/24 11:53 Completed Procalcitonin Stat Lab 06/22/24 13:44 Completed Troponin I Stat Lab 06/22/24 11:53 Completed Troponin I Stat Lab 06/22/24 17:56 Completed UA [Urinalysis] Stat Lab 06/22/24 12:49 Completed Urine Culture Stat Lab 06/22/24 11:07 Received Acetaminophen Tab [Tylenol ES Tab] Med 06/22/24 16:18 Discontinued 1,000 mg PO X1 ONE DiphenhydrAMINE INJ [Benadryl Inj] Med 06/22/24 18:56 Discontinued 12.5 mg IVP X1 ONE Famotidine Inj [Pepcid Inj] Med 06/22/24 18:11 Discontinued 20 mg IVP X1 ONE Ketorolac Inj [Toradol Inj] Med 06/22/24 11:07 Discontinued 30 mg IM X1 ONE Metoclopramide Inj [Reglan Inj] Med 06/22/24 18:56 Discontinued 5 mg IVP X1 ONE Morphine Inj Med 06/22/24 13:35 Discontinued 4 mg IVP X1 ONE Ondansetron Inj [Zofran Inj] Med 06/22/24 13:35 Discontinued 4 mg IV X1 ONE Ondansetron Odt [Zofran Odt] Med 06/22/24 11:07 Discontinued 4 mg PO X1 ONE Sodium Chloride 0.9% 1000 ml [Ns] 1,000 ml Med 06/22/24 14:04 Discontinued IV 999 mls/hr Sodium Chloride 0.9% 1000 ml [Ns] 1,000 ml Med 06/22/24 16:19 Discontinued IV 999 mls/hr Reevaluation(s) Reevaluation #1: See MDM Vital Signs Vital signs: Vital Signs Temperature 98.0 F 06/22/24 10:34 Pulse Rate 52 L 06/22/24 10:34 Respiratory Rate 17 06/22/24 10:34 Blood Pressure 143/77 H 06/22/24 10:34 Pulse Oximetry (%) 97 06/22/24 10:34 Oxygen Delivery Method Room Air 06/22/24 10:34 Procedures -ED EKG Interpretation #1: Date of EK06/22/24 Time of EK:53 Rate: 54 Interpretation: Interpreted by me Additional EKG comment: Sinus rhythm. Bradycardic at 54. Parable 224. First-degree AV block. No ST elevations or depressions. QTc 382. Impression: no ST elevations or depressions. Sinus bradycardia with first-degree AV block. Abdominal Pain [facility] Narrative [facility] Narrative:: 88-year-old male with history of A-fib, with amiodarone and on Eliquis, diabetes type 2, chronic renal insufficiency with a baseline creatinine approximately 1.5 with recent hypertensive episodes associate with headache who is recently been placed on varying dosages of clonidine based on the level of hypertension for the patient over the last 1 week presenting with increasing abdominal pain that is more severe since last night. While in the emergency department the patient's blood pressure is 143/77 and he is slightly bradycardic at 52. The patient does not appear toxic to me. Review of previous chart shows that the patient has been treated with multiple medications to include Norvasc starting approxi-1 week ago and then switched to clonidine with varying improvements. Unclear why the patient was hypothermic when he was seen previously in the emergency department and on review of the records it did not appear that he had a UTI. Differential diagnosis includes ischemic bowel however the patient does not appear to be have a pain out of proportion to exam but that can still be in the differential diagnosis, the gallbladder is out already however common bile duct stone can be considered. Will need to review liver function test.The patient is not complaining of cough, runny nose and I have a lower suspicion for pneumonia. No shortness of breath, or recent travel and does not smoke and he has a very low risk for possible pulmonary embolism. Patient is having new headache and therefore head CT will be obtained. Plan: Will treat pain control with morphine, consider head CT for new onset headache, and reassess evaluation for possible ischemic bowel. Lactic in process Calcitonin ordered. Pending UA to rule out possible UTI or pyelonephritis. 1500: Discussed with both Dr. Kennedy and Dr. Bourgeois who clearly is very involved in this patient's history and close family member. I discussed the risk for renal failure but in the setting of this intermittent up-and-down abdominal pain with benign abdomen here the risks benefit is best to go ahead and do a CT angio gram of the abdomen to rule out some type of ischemic etiology. 1743: Initial trop is pending and will send 3 hour troponin. EKG ordered: Sinus bradycardia without ST elevations or depressions. Dr. Bourgeois/Estelita aware CT angio P after 2NS 1800: Krissy Bush am scribing for and in the presence of Dr. Nicole. Patient data External records reviewed:: [facility] previous records (Reviewed last ED visit dated 06/16/24, discharged with the following: Headache) Clinical information provided by:: patient Social determinants that could affect healthcare access:: none Patient has the following chronic illnesses:: Type 2 diabetes, hypertension, hyperlipidemia How is presenting disease/condition affected by chronic disease/condition?: exacerbated by Evaluation data The following diagnostics were reviewed and interpreted by me:: lab results and radiology exam(s) Lab and/or radiology exams considered but not ordered:: none Interpretation Summary: Procedure(s): XR chest 1V portable Accession Number(s): [id number] cc: Mulu Denise MD; Bj Parson MD; Sandee Nicole MD~ Examination: AP chest single view Technique one AP portable upright chest single view Exam date and time: June 22, 2024 1419 hours Comparison June 16, 2024 INDICATIONS: Epigastric pain beginning 3 days ago. FINDINGS: Bibasilar bronchitis versus early bronchopneumonia No pulmonary edema Prominent osteopenia IMPRESSION: Bibasilar bronchitis versus early bronchopneumonia, clinical correlation advised Dictated By: Bj Parson MD Procedure(s): CT abdomen pelvis wo [facility] Accession Number(s): [id number] cc: Mulu Denise MD; Adrien Arredondo; Bj Parson MD~ Examination: CT abdomen and pelvis without contrast. Coronal 3-D reconstructions. Sagittal 2-D reconstructions. Date and time of exam:June 22, 2024 at 11:21 AM Comparison June 16, 2024 INDICATIONS: Onset generalized abdominal pain beginning 3 days ago CTDI: vol (mGy): 8.39 DLP: (mGycm): 529 Technique: Axial images of the abdomen have been obtained, 3 mm slice thickness Intravenous contrast material has not been administered. Low dose protocols were performed. One or more of the following dose reduction techniques were used; automated exposure control, adjustment of the mA and/or KV according to patient size, use of iterative reconstruction technique. Findings: Moderate vascular congestion No focal liver or splenic lesions Absent gallbladder. No pancreatic mass. Small bilateral renal cysts Mild to moderate bilateral renal parenchymal scar formation. Perinephric stranding. No hydronephrosis or ureteral calculi. Aorta normal size. Normal appendix. 6 mm fat-containing umbilical hernia. Colonic diverticulosis. No diverticulitis Intact urinary bladder. Transverse prostate dimension 4.4 cm Severe osteopenia Advanced degenerative disc disease L5-S1 Moderate narrowing hip joints IMPRESSION: Mild to moderate bilateral renal parenchymal scar formation Perinephric stranding, consider urinary tract infection No hydronephrosis or ureteral calculi Normal appendix Small fat-containing umbilical hernia Mild prostatomegaly. Dictated By: Bj Parson MD Medications / Prescriptions Medications or Prescriptions considered but not ordered:: none Medication administrations:: Medication Administration History Discontinued Medications Acetaminophen (Acetaminophen 500 Mg Tablet) 1,000 mg PO X1 ONE Stop: 06/22/24 16:19 Last Admin: 06/22/24 16:24 Dose: 1,000 mg Documented By: VG Diphenhydramine HCl (Diphenhydramine Inj 50 Mg/Ml Vial) 12.5 mg IVP X1 ONE Stop: 06/22/24 18:57 Last Admin: 06/22/24 19:12 Dose: 12.5 mg Documented By: VG Famotidine (Famotidine Inj 10 Mg/Ml Vial 2 Ml) 20 mg IVP X1 ONE Stop: 06/22/24 18:12 Last Admin: 06/22/24 19:12 Dose: 20 mg Documented By: VG Sodium Chloride (Ns) 1,000 mls @ 999 mls/hr IV .Q1H1M ONE Stop: 06/22/24 15:04 Last Infusion: 06/22/24 18:52 Dose: Infused Documented By: Admin: 06/22/24 16:25 Dose: 999 mls/hr Documented By: VG Sodium Chloride (Ns) 1,000 mls @ 999 mls/hr IV .Q1H1M ONE Stop: 06/22/24 17:19 Last Infusion: 06/22/24 18:52 Dose: Infused Documented By: Admin: 06/22/24 16:25 Dose: 999 mls/hr Documented By: VG Ketorolac Tromethamine (Ketorolac Inj 60 Mg/2 Ml Vial) 30 mg IM X1 ONE Stop: 06/22/24 11:08 Last Admin: 06/22/24 12:14 Dose: 30 mg Documented By: VG Comments: Metoclopramide HCl (Metoclopramide Inj 5 Mg/Ml Vial 2 Ml) 5 mg IVP X1 ONE; Protocol Stop: 06/22/24 18:57 Last Admin: 06/22/24 19:09 Dose: 5 mg Documented By: VG Morphine Sulfate (Morphine Sulf Inj 10 Mg/Ml Vial) 4 mg IVP X1 ONE Stop: 06/22/24 13:36 Last Admin: 06/22/24 14:01 Dose: 4 mg Documented By: VG Comments: [employer] logged out, med scanned and thrown away but did not register Ondansetron HCl (Ondansetron Odt 4 Mg Tabrap) 4 mg PO X1 ONE; Protocol Stop: 06/22/24 11:08 Last Admin: 06/22/24 12:18 Dose: 4 mg Documented By: VG Comments: prompted to rescan med but threw away label Ondansetron HCl (Ondansetron Inj 2 Mg/Ml Inj 2 Ml) 4 mg IV X1 ONE; Protocol Stop: 06/22/24 13:36 Last Admin: 06/22/24 14:02 Dose: 4 mg Documented By: VG Comments: [employer] logged out, med scanned and thrown away but did not register see above Consultations Consultation(s) initiated? (list below): No Consultation #1 (Physician, Specialty, Details): TeleNeuro, worsening headache: Recommend admission for supportive and pain management, physical therapy, and MRI brain with and without contrast, MRA head and neck, and MRI of the cervical spine. Time: 18:05 Consultation #2 (Physician, Specialty, Details): Discussed with the resident, Dr. Caban, who is aware that the patient will be placed for admission. He will sign out the information to the [place] [id number] team for admission for orders to be wrtitten. They are aware that they will need to follow-up the CT angio of the abdomen pelvis and agree to follow the results. Family request possible GI consult for Time: 18:30 Diagnosis Differential diagnosis abdominal pain: other (see MDM narrative) Most likely diagnosis given after review of the tests above:: No official diagnoses at this time, still pending diagnostic tests. Patient signout to the varnisher apprentice provider. Admission Indicated Admission indicated?: not indicated Explain why admission is indicated or not indicated:: No final disposition plan at this time, still pending diagnostic tests. Patient signout to the varnisher apprentice provider. Admission Request Was there a request for admission?: No Disposition Plan Disposition Plan: other (specify) (Patient signout to the varnisher apprentice provider.) Discharge Plan Plan Patient Disposition: Admit Acute Care w/in Hospital Patient condition on transfer: Stable Prescriptions/Referrals Prescriptions/Med Rec: No Action atorvastatin [Lipitor] 10 mg tablet 10 mg PO QDAY metformin [Glucophage] 1,000 MG tablet 1,000 mg PO QDAC Qty: 0 amiodarone 200 mg Tablet 200 mg PO QDAY clonidine HCl 0.1 mg tablet 0.1 mg PO BID Qty: 60 0RF acetaminophen-codeine 300-30 mg tablet 2 tab PO TID MDD 6 PRN (Reason: pain) Qty: 20 0RF Referrals: Mulu Denise MD [Primary Care Provider] - In 1 week Problem List Clinical Impression: Headache, Abdominal pain, lower, Pontine lesion Patient/Caregiver Discharge Instructions Print Language: Maori Stand Alone Forms: [facility]ar[facility] Award Info., Patient Portal Info Letter
[2024-06-22 13:53] LABS: Lactate (Lactic Acid) 0.8 mMol/L (0.4-2.0)
--- NOTE | 2024-06-22 13:57 | XR_ITS ---
Examination: AP chest single view Technique one AP portable upright chest single view Exam date and time: June 22, 2024 1419 hours Comparison June 16, 2024 INDICATIONS: Epigastric pain beginning 3 days ago. FINDINGS: Bibasilar bronchitis versus early bronchopneumonia No pulmonary edema Prominent osteopenia IMPRESSION: Bibasilar bronchitis versus early bronchopneumonia, clinical correlation advised
[2024-06-22 14:00] VITALS: BP 145/72; PULSE 47; RESP 18; TEMP 36.6; O2SAT 96
[2024-06-22] MEDS: MORPHINE SULF INJ 10 MG/ML VIAL 4 MG IVP (14:01)
[2024-06-22] MEDS: ONDANSETRON INJ 2 MG/ML INJ 2 ML 4 MG IV (14:02)
[2024-06-22 14:21] LABS: Procalcitonin 0.11 ng/ml (0.0-0.49)
--- NOTE | 2024-06-22 16:20 | XR_ITS ---
Examination: CT brain head without contrast. 2-D sagittal coronal reconstructions Date and time of exam:June 22, 2024 1649 hrs. Indications: Onset headaches beginning one week ago CTDI: vol (mGy):51.7 DLP: (mGycm):1039 Technique: Multiple CT axial sections of the brain have been obtained, 5 mm slice thickness. Contrast has not been administered. 2-D sagittal, coronal reconstructions have been obtained Low dose protocols were performed. One or more of the following dose reduction techniques were used; automated exposure control, adjustment of the mA and/or KV according to patient size, use of iterative reconstruction technique. Findings: No significant ventricular enlargement. Subtle low-density in the left brainstem, pontine level, axial image 29 Intra-axial or extra-axial hemorrhage density is not seen. No mass effect or midline shift Basal cisterns are not remarkable. Fourth ventricle is midline. Cranial vault intact. Impression: Negative for acute hemorrhage, mass effect or midline shift Subtle low-density in the left brainstem, pontine level, axial image 29 Recommend brain MRI follow-up, pre and postcontrast
[2024-06-22] MEDS: ACETAMINOPHEN 500 MG TABLET 1000 MG PO (16:24)
[2024-06-22] MEDS: SODIUM CHLORIDE 0.9% 1000 ML 1,000 ML 999 ML IV ×2 (16:25)
--- NOTE | 2024-06-22 16:28 | XR_ITS ---
Examination: CT cervical spine without contrast 2-D sagittal reconstructions 2-D coronal reconstructions 3-D reconstructions. Exam date and time:June 22, 2024 1649 hrs. Indications: Onset headaches neck pain beginning one week ago CTDI:vol (mGy) 8.04 DLP: (mGycm) 166 Technique: Multiple 2 mm axial sections of the cervical spine have been obtained. The coronal and sagittal reconstructions have been obtained. 3-D reconstructions have been obtained. Low dose protocols were performed. One or more of the following dose reduction techniques were used; automated exposure control, adjustment of the mA and/or KV according to patient size, use of iterative reconstruction technique. Findings: Axial sections demonstrate intact base of the skull. C1 exhibit satisfactory relationship to the odontoid. No acute cervical vertebral body fracture seen. Alignment posterior spinous processes satisfactory. Cervical fusion C5-C7 Advanced degenerative disc disease C7-T1, T1-T2, T2-T3 Moderate cervical spondylosis C3-C4 advanced bilateral neural foraminal stenosis C4-C5 advanced bilateral neural foraminal stenosis C5-C6 advanced bilateral neural foraminal stenosis C6-C7 advanced right neural foraminal stenosis Impression: No acute cervical fracture. Significant spinal stenosis as above, consider elective MRI cervical spine without contrast follow-up
--- NOTE | 2024-06-22 17:44 | EKG_ITS ---
[facility] Test Date: 2024-06-22 Pat Name: ANKUR NEAL Department: Room: - Gender: Male Customer Agent: : [id number] Requested By: Sandee Carrillo Order Number: [id number] Reading MD: Sandee Carrillo Measurements Intervals [place] Rate: 54 P: 102 [place]: 224 QRS: 34 QRSD: 97 T: 47 QT: 397 QTc: 377 Interpretive Statements SINUS BRADYCARDIA WITH FIRST DEGREE AV BLOCK NONSPECIFIC T-WAVE ABNORMALITY Compared to ECG 06/16/2024 12:15:31 First degree AV block now present T-wave abnormality now present Sinus rhythm no longer present /store/S0/[id number].pdf
--- NOTE | 2024-06-22 17:49 | XR_ITS ---
Examination: CTA abdomen, with intravenous contrast. CTA pelvis, with intravenous contrast. 2-D sagittal and coronal reconstructions. 3-D reconstructions. Date and time of exam: July 02, [address] abdomen pelvis without contrast June 22, 2024 Indications: Sudden onset abdominal pain beginning yesterday CTDI vol (mgy) 9.66 DLP (MGycm) 585 Technique: Multiple CTA images, 2.0 mm slice thickness, obtained abdomen, pelvis, with the high-resolution 64 slice scanner. 60 cc Isovue-300 is administered intravenously. Sagittal and coronal 2-D reconstructions are obtained. 3-D reconstructions, angiographic images are obtained. 3-D postprocessing, including vascular maximum intensity projections. Low dose protocols were performed. One or more of the following dose reduction techniques were used; automated exposure control, adjustment of the mA and/or KV according to patient size, use of iterative reconstruction technique. Findings: Moderate vascular congestion Bibasilar bronchiectasis No focal liver lesion Has not enlarged No pancreatic or adrenal mass Bilateral renal cysts Renal arterial calcification, no hydronephrosis or renal calculi Aorta normal size No abnormal contrast extravasation in the gastrointestinal tract Normal appendix Colonic diverticulosis, no diverticulitis Distended urinary bladder Transverse prostate dimension 4.5 cm Mild thickening the rectal wall Impression: Moderate vascular congestion Bibasilar bronchiectasis Vascular renal arterial calcifications, no hydronephrosis or renal calculi Normal appendix No abnormal contrast extravasation in the gastrointestinal tract Mild thickening of the rectal wall, differential would include proctitis
[2024-06-22 18:02] LABS: Troponin I < 0.020 ng/mL (0.0-0.045)
--- NOTE | 2024-06-22 18:12 | PD.EDADDENDU ---
Emergency Room Addendum Addendum Narrative: 1811: Care assumed from Dr. Nicole the previous shift emergency physician. Past medical, surgical, social and family history reviewed. Vitals and home medications reviewed. Results and treatment plan discussed. I will assume the care of the patient at this time and will follow the patient, pending CTA abdomen pelvis. Please refer to the emergency department record for history and examination from initial visit.
--- NOTE | 2024-06-22 18:21 | PD.TNEURO ---
Tele Neuro Consultation Consultation Date 06/22/24 Most Recent Vital Signs Last Vital Signs Temp 98 F 06/22/24 14:00 Pulse 47 L 06/22/24 14:00 Resp 18 06/22/24 14:00 BP 145/72 H 06/22/24 14:00 Pulse Ox 96 06/22/24 14:00 O2 Del Method Room Air 06/22/24 14:00 Consultation Narrative [facility] TeleNeurology Consult Services Stat Consult Patient Name: Clayton Montgomery Date of : 1935 Identification Number: Date of Service: 06/22/2024 16:44:59 Diagnosis: ? R51.9 - Headache, unspecified Impression 88 y/o M with diabetes, hypertension, hyperlipidemia, AF on Eliquis with progressive SANDOVAL and HTN over the last week. He was seen in the ER last Wednesday, a week ago, and has been treated for HTN with varying doses of clonidine; since then has had pain in the midline back of head and neck. Gradual onset, progressively worse. Now 10/10. Not particularly worse with movement. Also midline epigastric pain x 3 days. Labs unremarkable (some renal dysfunction) CT head reviewed shows a subtle low-density in the left brainstem, pontine level, reviewed by self. 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 Neurological examination is broadly normal; NIH stroke scale = 0. He indicates pain at the back of the head and midline upper spine; able to flex and rotate his neck without undue discomfort. Blood pressure is not excessively elevated. It seems most probable that pain at the back of the neck is related to degenerative spine disease. Vertebral dissection, occipital neuralgia more likely to be lateralized and low suspicion. Meningitis, SAH, elevated BP also not suggested. I am uncertain of the nature of the hypodensity in the left cindy noted on head CT - is not reflected by any clinical deficits, and doubt that this is the cause of his pain - will need to be further addresse by MRI wwo. Recommend admission for supportive and pain management, physical therapy, and MRI brain with and without contrast, MRA head and neck, and MRI of the cervical spine. Patient should be followed closely by Neurology - primary team to please place formal consultation to be seen tomorrow. Please reconsult [facility] immediately for any abnormal results or concerns/questions. Recommendations: Our recommendations are outlined below. Disposition : Neurology will follow Metrics: Dispatch Time: 06/22/2024 16:44:59 Callback Response Time: 06/22/2024 16:46:39 Primary Provider Notified of Diagnostic Impression and Management Plan on: 06/22/2024 18:19:01 CT HEAD: As Per Radiologist CT Head Showed No Acute Hemorrhage or Acute Core Infarct Reviewed CT head: Impression: Negative for acute hemorrhage, mass effect or midline shift. Subtle low-density in the left brainstem, pontine level, axial image 29. Recommend brain MRI with and without contrast. Labs BUN/creat 27/1.5 [facility] 6.6 Chief Complaint: STAT consult confirmed by: Dr. Coley 88M Complaint: Pt has worsening headache and htn over last week. Treated with multiple htn medication. Pt has worsening head and neck pain. Pt has had contrast, and wants to know if hyper perfusion could be the cause. lkwt: one week way. imaging: CT w abd, CTA H, N pending evals and recs: History of Present Illness: Patient is a 88 year old Male. 88 y/o M with diabetes, hypertension, hyperlipidemia, AF on Eliquis with progressive SANDOVAL and HTN over the last week. He was seen in the ER last Wednesday, a week ago, and has been treated for HTN with varying doses of clonidine; since then has had pain in the midline back of head and neck. Gradual onset, progressively worse, not thunderclap. Now 10/10. Not particularly worse with movement. Also midline epigastric pain x 3 days. Labs unremarkable (some renal dysfunction) CT head reviewed shows a subtle low-density in the left brainstem, pontine level, reviewed by self. 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 Past Medical History: ? Hypertension ? Diabetes Mellitus ? Atrial Fibrillation ? There is no history of Coronary Artery Disease Medications: Anticoagulant use: Yes Eliquis No Antiplatelet use Reviewed EMR for current medications Allergies: Reviewed Social History: Smoking: No Family History: There is no family history of premature cerebrovascular disease pertinent to this consultation ROS : 14 Points Review of Systems was performed and was negative except mentioned in HPI. Past Surgical History: There Is No Surgical History Contributory To Today?s Visit Examination: BP(136/69), Pulse(53), Blood Glucose(186) 1A: Level of Consciousness - Alert; keenly responsive + 0 1B: Ask Month and Age - Both Questions Right + 0 1C: Blink Eyes & Squeeze Hands - Performs Both Tasks + 0 2: Test Horizontal Extraocular Movements - Normal + 0 3: Test Visual Knight - No Visual Loss + 0 4: Test Facial Palsy (Use Grimace if Obtunded) - Normal symmetry + 0 5A: Test Left Arm Motor Drift - No Drift for 10 Seconds + 0 5B: Test Right Arm Motor Drift - No Drift for 10 Seconds + 0 6A: Test Left Leg Motor Drift - No Drift for 5 Seconds + 0 6B: Test Right Leg Motor Drift - No Drift for 5 Seconds + 0 7: Test Limb Ataxia (FNF/Heel-Zarate) - No Ataxia + 0 8: Test Sensation - Normal; No sensory loss + 0 9: Test Language/Aphasia - Normal; No aphasia + 0 10: Test Dysarthria - Normal + 0 11: Test Extinction/Inattention - No abnormality + 0 NIHSS Score: 0 NIHSS Free Text : Does not appear in extreme distress. Able to flex neck without discomfort. Spoke with : Dr. Nicole This consult was conducted in real time using interactive audio and video technology. Patient was informed of the technology being used for this visit and agreed to proceed. Patient located in hospital and provider located at home/office setting. Patient is being evaluated for possible acute neurologic impairment and high probability of imminent or life - threatening deterioration.I spent total of 35 minutes providing care to this patient, including time for face to face visit via telemedicine, review of medical records, imaging studies and discussion of findings with providers, the patient and / or family. Dr Greg [facility] For Inpatient follow-up with [facility] physician please call [facility] at . As we are not an outpatient service for any post hospital discharge needs please contact the hospital for assistance. If you have any questions for the [facility] physicians or need to reconsult for clinical or diagnostic changes please contact us via [facility] at .
[2024-06-22 18:29] VITALS: BP 131/69; PULSE 49; RESP 18; TEMP 36.8; O2SAT 94
--- NOTE | 2024-06-22 18:32 | PD.RESEVENT ---
Documentation for date of: 06/22/24 Event Note Event Note: Patient is a 88 years old male with past medical history of type 2 diabetes, hypertension, hyperlipidemia, chronic renal insufficiency presented to the ED due to headache and worsening abdominal pain. Head CT was done showing subtle low-density in the left brainstem, pontine level, tele neurology was consulted and recommended admission for further evaluation. Patient is pending CTA A/P for evaluation of abdominal pain. Patient will be passed to night team for admission. Plan of care discussed with attending Dr. Anthony. Ren Valdes MD, PGY 2. Disclaimer: This note was dictated by speech recognition. Minor errors in diesel service technician may be present due to voice recognition software.
[2024-06-22 18:40] LABS: Troponin I < 0.020 ng/mL (0.0-0.045)
[2024-06-22] MEDS: METOCLOPRAMIDE INJ 5 MG/ML VIAL 2 ML IVP (19:09)
[2024-06-22] MEDS: FAMOTIDINE INJ 10 MG/ML VIAL 2 ML 20 MG IVP (19:12)
[2024-06-22] MEDS: DiphenhydrAMINE INJ 50 MG/ML VIAL 12.5 MG IVP (19:12)
--- NOTE | 2024-06-22 19:36 | XR_ITS ---
Examination: Retroperitoneal ultrasound, complete Technique: Multiple high resolution grayscale images of the retroperitoneum obtained, including kidneys and bladder. Exam date and time:July 02, 2024 2129 hrs. Indications: Abnormal pulmonary examination this week, diagnosis renal vasculitis right pain this week Findings: Right kidney 10.4 cm renal cortex 1.8 cm Multiple renal cysts, the largest in the upper pole 24 mm Left kidney 9.0 cm cortex 1.2 cm Mid pole cyst 22 mm Moderate bilateral renal parenchymal scar formation No hydronephrosis No bladder mass or bladder calculi Bladder prevoid volume 645 cc Prostate 3.5 x 5.2 cm: 20.7 cc no prostate nodules Impression: Small kidneys with bilateral renal cortical thinning Moderate bilateral renal parenchymal scar formation No hydronephrosis
[2024-06-22 20:21] LABS: Sed Rate (ESR) 19 mm/hr (0-20)
--- NOTE | 2024-06-22 20:24 | PD.RESHP ---
Documentation for date of: 06/22/24 HPI History of Present Illness Chief complaint: Intractable abdominal pain, neck pain History of present illness: Mr. Montgomery is a 88-year-old male with past medical history of atrial fibrillation, type 2 diabetes mellitus, hypertension, hyperlipidemia and chronic kidney disease who presented to [facility] emergency department from home on 06/22/2024 with a chief complaint of abdominal pain and neck pain. According to the patient that her symptoms started about a week ago, when he started having neck pain and abdominal pain presented to the ED was found to have elevated blood pressure was discharged on clonidine as needed. Patient said that his pain has been progressive, and it was out of proportion yesterday evening, not alleviated with medication so he decided to come to ED. Patient describes epigastric pain, burning, nonradiating, acute 10 out of 10. Patient reports history of GERD and had an EGD in 2019, was supposed to follow-up with associate professor of management was pending appointment. Patient also complains of significant neck pain, sharp pain neck radiating down to shoulder, no neck rigidity noted. Patient otherwise denies any shortness of breath, cough and chest pain. ED Course: ED Vitals: On presentation in ED BP 143/77, P52, RR 17, temp 98.0, O2 sat 97 on room air ED Labs: ED labs significant for sodium 134, BUN 27, creatinine 1.5, GFR 45, glucose 186, ALT 55. UA significant for glucose 1+, leukocyte esterase positive, none bacteria WBC 3, RBC 1 ED Imaging:CT abdomen pelvis significant for perinephric stranding, small fat-containing umbilical hernia, mild prostatomegaly chest x-ray significant for bibasilar bronchitis versus early bronchopneumonia head CT negative for acute hemorrhage mass or midline affect positive for subtle low-density in left brainstem pontine level. CT cervical spine shows no acute fracture abdomen pelvis CTA shows bibasilar bronchiectasis, moderate vascular congestion, vascular renal arterial calcification, mild thickening of rectal wall and renal ultrasound significant for small kidneys with bilateral renal cortical thinning, moderate bilateral renal parenchymal scar formation. EKG significant for sinus bradycardia, QTc 377 ED Treatment: Patient was given Toradol 30 x 1, Zofran 4 mg x 2, morphine 4 mg x 1, Tylenol 1000 mg x 1 2 L NS bolus, Reglan 5 mg x 1, famotidine 20 mg x 1 and Benadryl 12.5 mg x 1 in ED Teleneuro was consulted in ED, per teleneuro patient's neck pain likely secondary to degenerative spine disease recommended admission for supportive and pain management, physical therapy, and MRI brain with and without contrast, MRA head and neck, and MRI of the cervical spine. Review of Systems Review of Systems Narrative Review of Systems: ROS: -CONSTITUTIONAL: Denies weight loss, fever and chills. -HEENT: Denies changes in vision and hearing. Positive for headache, neck pain. -RESPIRATORY: Denies SOB and cough. -CV: Denies palpitations and Chest Pain. -GI: Positive for mid abdomen burning pain. -: Denies dysuria and urinary frequency. -MSK: Denies myalgia and joint pain. -SKIN: Denies rash and pruritus. -NEUROLOGICAL: Positive for headache and denies syncope. -PSYCHIATRIC: Denies recent changes in mood. Denies anxiety and depression. Past Medical History Past Medical History Comments PMH COMMENT: PMH: Positive for atrial fibrillation, hyperlipidemia, hypertension, GERD, type 2 diabetes mellitus PSHx: Cholecystectomy Allergies: Sulfa antibiotics cause rash Social history: Lives at home with family, independent ADLs. -Smoking: Denies -Alcohol Use: Denies -Illicit Drug Use: Denies Family History: No history for heart disease in family. Exam Vital Signs Temp Pulse Resp BP Pulse Ox O2 Del Method 98.3 F 49 L 18 131/69 H 94 L Room Air 06/22/24 18:29 06/22/24 18:29 06/22/24 18:29 06/22/24 18:29 06/22/24 18:29 06/22/24 18:29 Narrative Exam Physical Exam General: Awake and in no acute distress. Conversational and non-toxic appearing. HEENT: Normocephalic, atraumatic, mucous membranes moist. Heart: Bradycardic, regular rhythm, no murmurs. Lungs: Clear to auscultation with no wheezing or crackles. Abdomen: Soft, obese, nondistended, mild epigastric tendernes, positive bowel sounds. ?No guarding or rebound tenderness. Neurologic: Alert and oriented x3, no gross neurological deficit, and patient able to move all 4 extremities. Extremities: No edema. Skin: No rash or ecchymoses. Results: Labs 06/22/24 11:53 06/22/24 11:53 Labs: Short CBC 06/22/24 Range/Units 11:53 WBC 6.6 (3.8-10.6) Thou/mm3 Hgb 14.0 (13.5-16.0) g/dL Hct 41.8 (41.0-53.0) % Plt Count 194 (140-440) Thou/mm3 BMP 06/22/24 11:53 Sodium 134 L Potassium 4.5 Chloride 101 Carbon Dioxide 25.8 BUN 27 H Creatinine 1.5 H Glucose 186 H Calcium 9.9 Cardiac Enzymes 06/22/24 06/22/24 Range/Units 11:53 17:56 Troponin I < 0.020 < 0.020 (0.0-0.045) ng/mL Liver Function 06/22/24 Range/Units 11:53 Total Bilirubin 0.3 (0.3-1.2) mg/dL AST 31 (0-34) U/L ALT 55 H (10-49) U/L Alkaline Phosphatase 81 (46-116) U/L Albumin 4.6 (3.4-4.8) gm/dL Urine 06/22/24 Range/Units 12:49 Urine Color Lt-Yellow (Lt Yel-Yel) Urine Clarity Clear (Clear/Hazy) Urine pH 6.5 (5.0-7.0) Ur Specific [place] 1.014 (1.001-1.035) Urine Protein Trace (Neg - Trace) Urine Glucose (UA) 1+ A (Negative) Quality Measures Quality Measures none Advance care planning discussed with:: patient and child Medications Home Medications and Allergies Home Medications ?Medication ?Instructions ?Recorded ?Confirmed ?Type amiodarone 200 mg tablet 200 mg PO QDAY 07/24/19 06/23/24 History atorvastatin 10 mg tablet (Lipitor) 10 mg PO QDAY 09/06/23 06/23/24 History apixaban 2.5 mg tablet (Eliquis) 2.5 mg PO 2XD 06/23/24 06/23/24 History empagliflozin 25 mg tablet 25 mg PO QDAY 06/23/24 06/23/24 History (Jardiance) glipizide 2.5 mg tablet, extended 2.5 mg PO 1XD 06/23/24 06/23/24 History release 24 hr losartan 50 mg tablet 100 mg PO 1XD 06/23/24 06/23/24 History pregabalin 75 mg capsule 75 mg PO 1XD 06/23/24 06/23/24 History vitamin B complex-vitamin C-folic 1 tab PO Q24H 06/23/24 06/23/24 History acid 0.8 mg tablet (Codi-Adrienne) Allergies Allergy/AdvReac Type Severity Reaction Status Date / Time Sulfa (Sulfonamide Allergy Mild Rash Verified 06/22/24 10:53 Antibiotics) Visit Medications Acetaminophen (Acetaminophen 325 Mg Tablet) 650 mg PO Q6H PRN PRN Reason: Pain Scale 1-3 (Mild,Fever>101 Stop: 07/22/24 19:49 Hydrocodone Bitart/Acetaminophen (Hydrocodone/Apap 10/325 Tab) 1 tab PO Q4H PRN PRN Reason: PAIN SCALE 4-6 (Moderate Stop: 06/27/24 19:49 Amiodarone HCl (Amiodarone Hcl 200 Mg Tablet) 200 mg PO QDAY MILVIA Stop: 07/23/24 08:59 Amlodipine Besylate (Amlodipine Besylate 2.5 Mg Tablet) 2.5 mg PO QDAY MILVIA Stop: 07/23/24 08:59 Apixaban (Apixaban 2.5 Mg Tablet) 2.5 mg PO BID MILVIA Stop: 07/22/24 20:59 Atorvastatin Calcium (Atorvastatin Calcium 10 Mg Tablet) 10 mg PO HS MILVIA Stop: 07/22/24 20:59 Dextrose (Dextrose 50%-Water Inj 50 Ml Syringe) 25 ml IV Q15MIN PRN PRN Reason: BG 50-70 responsive npo pt Stop: 07/22/24 19:49 Dextrose (Dextrose 50%-Water Inj 50 Ml Syringe) 50 ml IV Q15MIN PRN PRN Reason: BG <50 OR BG <70 & pt unresponsive Stop: 07/22/24 19:49 Famotidine (Famotidine Inj 10 Mg/Ml Vial 2 Ml) 20 mg IVP QDAY MILVIA Stop: 07/23/24 08:59 Glucagon (Glucagon Inj 1 Mg Vial) 1 mg IM Q15MIN PRN PRN Reason: BG <70, and no IV access Hydromorphone HCl (Hydromorphone Inj 2 Mg/Ml Vial) 0.25 mg IVP Q4H PRN PRN Reason: Severe Pain (7-10) Stop: 06/27/24 19:49 Insulin Human Lispro (Insulin Lispro (Admelog) 1 Unit/0.01 Ml Unit) 0 unit SC AC [facility]; Protocol Stop: 07/23/24 07:29 Losartan Potassium (Losartan Potassium 25 Mg Tablet) 100 mg PO QDAY [facility] Stop: 07/23/24 08:59 Ondansetron HCl (Ondansetron Inj 2 Mg/Ml Inj 2 Ml) 4 mg IV Q6H PRN; Protocol PRN Reason: NAUSEA OR VOMITING Stop: 07/22/24 19:49 Pregabalin (Pregabalin 75 Mg Capsule) 75 mg PO BID [facility] Stop: 07/22/24 20:59 Sennosides (Senna Tablet) 1 tab PO QDAY [facility]; Protocol Stop: 07/23/24 08:59 Discontinued Medications Acetaminophen (Acetaminophen 500 Mg Tablet) 1,000 mg PO X1 ONE Stop: 06/22/24 16:19 Last Admin: 06/22/24 16:24 Dose: 1,000 mg Acetaminophen (Acetaminophen 325 Mg Tablet) 650 mg PO Q6H PRN PRN Reason: PAIN SCALE 1-3 (mild Stop: 07/22/24 19:49 Diphenhydramine HCl (Diphenhydramine Inj 50 Mg/Ml Vial) 12.5 mg IVP X1 ONE Stop: 06/22/24 18:57 Last Admin: 06/22/24 19:12 Dose: 12.5 mg Famotidine (Famotidine Inj 10 Mg/Ml Vial 2 Ml) 20 mg IVP X1 ONE Stop: 06/22/24 18:12 Last Admin: 06/22/24 19:12 Dose: 20 mg Sodium Chloride (Ns) 1,000 mls @ 999 mls/hr IV .Q1H1M ONE Stop: 06/22/24 15:04 Last Infusion: 06/22/24 18:52 Dose: Infused Sodium Chloride (Ns) 1,000 mls @ 999 mls/hr IV .Q1H1M ONE Stop: 06/22/24 17:19 Last Infusion: 06/22/24 18:52 Dose: Infused Ketorolac Tromethamine (Ketorolac Inj 60 Mg/2 Ml Vial) 30 mg IM X1 ONE Stop: 06/22/24 11:08 Last Admin: 06/22/24 12:14 Dose: 30 mg Metoclopramide HCl (Metoclopramide Inj 5 Mg/Ml Vial 2 Ml) 5 mg IVP X1 ONE; Protocol Stop: 06/22/24 18:57 Last Admin: 06/22/24 19:09 Dose: 5 mg Morphine Sulfate (Morphine Sulf Inj 10 Mg/Ml Vial) 4 mg IVP X1 ONE Stop: 06/22/24 13:36 Last Admin: 06/22/24 14:01 Dose: 4 mg Ondansetron HCl (Ondansetron Odt 4 Mg Tabrap) 4 mg PO X1 ONE; Protocol Stop: 06/22/24 11:08 Last Admin: 06/22/24 12:18 Dose: 4 mg Ondansetron HCl (Ondansetron Inj 2 Mg/Ml Inj 2 Ml) 4 mg IV X1 ONE; Protocol Stop: 06/22/24 13:36 Last Admin: 06/22/24 14:02 Dose: 4 mg Assessment & Plan Plan Assessment and plan: Summary: Mr. Montgomery is a 88-year-old male with past medical history of atrial fibrillation, type 2 diabetes mellitus, hypertension, hyperlipidemia and chronic kidney disease who presented to [facility] emergency department from home on 06/22/2024 with a chief complaint of abdominal pain and neck pain. 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 Head CT negative for acute hemorrhage mass or midline affect positive for subtle low-density in left brainstem pontine level. CT cervical spine shows no acute fracture. Teleneuro consulted in ED, no deficits, NIHSS 0 recommended admission Plan: -MRI head with and without contrast -MRA head and neck -MRI cervical spine -Consulted neurology, appreciate recommendations -Pain management #Intractable abdominal pain Patient complains of mid epigastric pain, burning. High suspicion of GERD/peptic ulcer disease. CT abdomen pelvis significant for perinephric stranding, small fat-containing umbilical hernia, mild prostatomegaly. Abdomen pelvis CTA shows bibasilar bronchiectasis, moderate vascular congestion, vascular renal arterial calcification, mild thickening of rectal wall EGD 2020: Small Erosion Esophagus, Small Hiatal Hernia Plan: -Consulted GI, Appreciate Reccs -IV Famoidine QDay -Pain Management #Paroxysmal atrial fibrillation EKG significant for sinus bradycardia, QTc 377, AK 224 Plan: -Resumed home dose amiodarone -Resumed Home dose Eliquis -Tele Monitoring -Keep K >4 , Mg >2 #Chronic kidney disease IIIa renal ultrasound significant for small kidneys with bilateral renal cortical thinning, moderate bilateral renal parenchymal scar formation. BUN 27 Cr 1.5 GFR 45 on admission Plan: -Monitor Renal Panel in AM -Avoid Nephrotoxic Agents -Dose Meds renally #Type 2 diabetes mellitus #Pseudohyponatremia Follow A1c in AM Sliding Scale Insulin Fingerstick ACHS #Hypertension #Hyperlipidemia Resumed home Losartan and Amlodipine Resumed home dose atorvastatin DVT prophylaxis: Eliquis GI prophylaxis: Famotidine daily Diet: Cardiac, carb consistent low; n.p.o. after midnight Lines: Peripheral IV Code status: Full code Case discussed with Attending Dr. Woodard. Neyda Balderas PGY1 Disclaimer: This note was dictated by speech recognition. Minor errors in furrier shop supervisor may be present due to voice recognition software. Attending Provider Attestation/Addendum I have examined the patient, reviewed labs and imaging findings, discussed the case with the resident(s), and reviewed entered orders. I agree with the plan of care as outlined in this note, with these additional summaries/recommendations: Patient is a 88-year-old male with a medical history of atrial fibrillation on Eliquis, CKD, hyperlipidemia, primary hypertension, and diabetes mellitus type 2 who presents to [facility] emergency department on 06/22/2024 with chief complaints of severe headache and neck pain plus intractable abdominal pain. Teleneurology was consulted and CT head showed a low density in the left brainstem and teleneurology recommends admission for further workup. #Intractable Headache & Neck Pain #Cervical Degenerative disease #Low Density Left Brainstem Etiology: Cervical degenerative disc disease versus clonidine withdrawal versus migraine versus hypertension vs unlikely occipital neuralgia/SAH/Meningitis Head CT wo: Negative for acute hemorrhage but revealed low density in the left brainstem pontine level Cervical Spine CT: Advanced degenerative disc disease C7-T1, cervical fusion C5-C7, and significant spinal stenosis NIHSS 0 on admission Teleneurology consulted and consult in-house neurology, recommendations appreciated Order pain management, physical therapy, MRI brain with and without contrast, MRA head and neck, and MRI of cervical spine. Plan: Unclear etiology for hypodensity in the left cindy noted on head CT although lower suspicion that this is contributing to patient's pain. Continue pain management and we will follow-up additional imaging studies. Recommend discontinuing clonidine as antihypertensive. Continue home Lyrica. #Intractable Abdominal Pain Patient endorses 3 days of intractable epigastric pain although currently 4 out of 10. Etiology: Possibly related to GERD versus peptic ulcer versus gastritis versus nonulcer dyspepsia CT A/P: Absent gallbladder, no liver or splenic lesions, 6 mm fat-containing umbilical hernia, normal appendix, no hydronephrosis or ureteral calculi, mild prostamegaly CTA A/P: Vascular renal artery calcifications, normal appendix, no abnormal contrast extravasation in GI tract, mild thickening of rectal wall Plan: We will consult gastroenterology for intractable epigastric pain. Start daily Pepcid and monitor for improvement. GERD diet. 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 Plan: Renally dose medications and avoid nephrotoxic agents. Repeat renal panel in AM. # Paroxysmal Atrial fibrillation Currently in sinus rhythm with rate trending in the 60s Plan: Resume home amiodarone and Eliquis #Diabetes Mellitus Type II Well controlled 02/07/24 A1C 6.0% Plan: Start insulin sliding scale. Target blood sugar of 140-180 while hospitalized. Outpatient follow-up for further management of hypoglycemic agents. Dr. Woodard
[2024-06-22] MEDS: PREGABALIN 75 MG CAPSULE PO (20:26)
[2024-06-22] MEDS: APIXABAN 2.5 MG TABLET PO (20:26)
[2024-06-22] MEDS: ATORVASTATIN CALCIUM 10 MG TABLET PO (20:27)
[2024-06-22 20:36] LABS: C-Reactive Protein < 0.4 mg/dL (0.0-0.9)
[2024-06-22 21:58] VITALS: BP 122/66; PULSE 51; RESP 16; TEMP 37.2; O2SAT 95
[2024-06-22 22:00] VITALS: PULSE 58; RESP 19; RESP 96
[2024-06-22] MEDS: HYDROcodone/APAP 10/325 TAB PO (22:05)
--- NOTE | 2024-06-22 22:28 | PD.IMCONS ---
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 Patient does take Eliquis cc:: cc: Don Woodard MD Review of Systems Review of Systems Systems Reviewed: All systems reviewed, normal except as documented Past Medical History Surgical History OTHER SURGICAL HX: As in the history of present illness Meds Home Medications and Allergies Home Medications ?Medication ?Instructions ?Recorded ?Confirmed ?Type metformin 1,000 mg tablet 1,000 mg PO QDAC #0 tabs 02/26/14 03/06/24 History (Glucophage) amiodarone 200 mg tablet 200 mg PO QDAY 07/24/19 03/06/24 History atorvastatin 10 mg tablet (Lipitor) 10 mg PO QDAY 09/06/23 03/06/24 History Allergies Allergy/AdvReac Type Severity Reaction Status Date / Time Sulfa (Sulfonamide Allergy Mild Rash Verified 06/22/24 10:53 Antibiotics) Exam Vital Signs Temp Pulse Resp BP Pulse Ox O2 Del Method 98.9 F 51 L 16 122/66 95 Room Air 06/22/24 21:58 06/22/24 21:58 06/22/24 21:58 06/22/24 21:58 06/22/24 21:58 06/22/24 21:58 Routine Respiratory Exam Comments: Normal to auscultation Routine Abdominal Exam Comments: Midepigastric tenderness no rebound Results Labs 06/22/24 11:53 06/22/24 11:53 Labs: Short CBC 06/22/24 Range/Units 11:53 WBC 6.6 (3.8-10.6) Thou/mm3 Hgb 14.0 (13.5-16.0) g/dL Hct 41.8 (41.0-53.0) % Plt Count 194 (140-440) Thou/mm3 BMP 06/22/24 11:53 Sodium 134 L Potassium 4.5 Chloride 101 Carbon Dioxide 25.8 BUN 27 H Creatinine 1.5 H Glucose 186 H Calcium 9.9 Cardiac Enzymes 06/22/24 06/22/24 Range/Units 11:53 17:56 Troponin I < 0.020 < 0.020 (0.0-0.045) ng/mL Liver Function 06/22/24 Range/Units 11:53 Total Bilirubin 0.3 (0.3-1.2) mg/dL AST 31 (0-34) U/L ALT 55 H (10-49) U/L Alkaline Phosphatase 81 (46-116) U/L Albumin 4.6 (3.4-4.8) gm/dL Urine 06/22/24 Range/Units 12:49 Urine Color Lt-Yellow (Lt Yel-Yel) Urine Clarity Clear (Clear/Hazy) Urine pH 6.5 (5.0-7.0) Ur Specific [place] 1.014 (1.001-1.035) Urine Protein Trace (Neg - Trace) Urine Glucose (UA) 1+ A (Negative) Assessment and Plan Additional Assessment & Plan Additional Plan: # Pain abdomen epigastric etiology uncertain No evidence on CT scan imaging of mesenteric ischemia Suggest Gallbladder ultrasound Fiberoptic esophagogastroduodenoscopy with possible biopsy possible therapeutic intervention scheduled for tomorrow Other medical problems include Diabetes mellitus type 2 Essential hypertension Hyperlipidemia CKD Acute left brainstem infarct Thank you very much for the opportunity to participate in the care of this patient
--- NOTE | 2024-06-22 22:32 | XR_ITS ---
Examination: Abdomen sonogram, Limited Date and time of exam: June 23, 2024 0005 hours INDICATIONS: Onset abdominal pain and nausea today Technique: Real-time franklin scale transabdominal sonographic images of the upper abdomen obtained. Findings: Gallbladder not visualized Common bile duct 0.90 cm no stones noted Pancreas obscured by bowel gas Liver 16.4 cm no liver lesions Normal hepatopedal portal venous flow Patent IVC IMPRESSION: Prominent common bile duct 0.90 cm, clinical correlation advised If biliary colic is a clinical consideration, suggest MRCP follow-up
--- NOTE | 2024-06-22 23:33 | PC.NURSE ---
Dr monge notified of pt HR dropping to 40 sinus mely with no symptoms. No new orders at this time.
--- NOTE | 2024-06-22 23:52 | EKG_ITS ---
[facility] Test Date: 2024-06-23 Pat Name: ANKUR NEAL [facility] Gender[facility] [employer]: EVELYN : [id number] Requested By: Fani Martínez Order Number: [id number] Reading MD: Fani Martínez Measurements Intervals [place] Rate: 45 P: 82 [place]: 209 QRS: 13 QRSD: 108 T: 31 QT: 516 QTc: 449 Interpretive Statements SINUS BRADYCARDIA PROLONGED QT INTERVAL Compared to ECG 06/22/2024 17:53:02 Prolonged QT interval now present First degree AV block no longer present T-wave abnormality no longer present /store/S0/[id number]/ecg/[id number].pdf
[2024-06-23] VITALS (18 sets, daily range): BP systolic 98–180; BP diastolic 60–89; PULSE 32–68; RESP 12–95; TEMP 36.1–36.9; O2SAT 93–99; BMI 28.2; BMI 13.0
--- NOTE | 2024-06-23 00:54 | PC.NURSE ---
dr monge notified again of pt hr sustaining sinus bradyardia at [address] complaints[address] came to bedside to see patient and ordred EKG.
--- NOTE | 2024-06-23 02:21 | PC.NURSE ---
dr russell notified of pt hr sustaining at 32 BPM, no patient complaints. states it is okay. No new orders given at this time.
[2024-06-23 03:37] LABS: Magnesium 2.4 mg/dL (1.6-2.6); Potassium 4.3 mMol/L (3.4-5.1)
[2024-06-23 04:04] LABS: Basophils % (Auto) 0 % (0-2.5); Eosinophils # (Auto) 0.1 Thou/mm3 (0.0-0.5); Eosinophils % (Auto) 1 % (0-10); Hematocrit 34.5 % (41.0-53.0); Hemoglobin 11.5 g/dL (13.5-16.0); Immature Granulocytes % (Auto) 0 % (0-0); Immature Granulocytes Auto 0.02 Thou/mm3 (0.00-0.00); Lymphocytes # (Auto) 1.9 Thou/mm3 (1.0-4.8); Lymphocytes % (Auto) 24 % (10-50); Mean Corpuscular HGB Conc 33.3 g/dl (31.0-37.0); Mean Corpuscular Volume 87 fL (80-100); Monocytes # (Auto) 0.6 Thou/mm3 (0.0-0.8); Monocytes % (Auto) 7 % (0-12); Neutrophils # (Auto) 5.6 Thou/mm3 (1.8-7.7); Neutrophils % (Auto) 68 % (37-80); Nucleated Red Blood Cell % 0 /100 WBC (0); Platelet Count 154 Thou/mm3 (140-440); RDW Standard Deviation 46.7 fL (35.1-43.9); Red Blood Count 3.96 Miln/mm3 (4.50-5.90); White Blood Count 8.2 Thou/mm3 (3.8-10.6)
[2024-06-23 04:12] LABS: INR 1.2 (0.9-1.3); Partial Thromboplastin Time 34.9 Seconds (22.0-36.0); Prothrombin Time 12.5 Seconds (9.0-12.2)
[2024-06-23 04:40] LABS: Glucose Estimated Average 117 mg/dL (80-131); Hemoglobin A1C 5.7 % Hgb (4.8-6.0)
[2024-06-23 05:29] LABS: Alanine Aminotransferase 43 U/L (10-49); Albumin, Serum 3.5 gm/dL (3.4-4.8); Albumin/Globulin Ratio 1.7 (1.2-2.2); Alkaline Phosphatase 64 U/L (46-116); Anion Gap 7 (7-16); Aspartate Amino Transferase 24 U/L (0-34); BUN/Creatinine Ratio 22 Ratio (12-20); Bilirubin,Total 0.2 mg/dL (0.3-1.2); Blood Urea Nitrogen 33 mg/dL (9-23); Calcium 8.5 mg/dL (8.3-10.6); Calcium (Corrected) 8.9 mg/dL (8.5-10.1); Carbon Dioxide 25.4 mMol/L (20.0-31.0); Cardiac Risk Estimate 2.1 RATIO (4.0-6.7); Chloride 108 mMol/L (98-107); Cholesterol 111 mg/dL (132-200); Creatinine (Component) 1.5 mg/dL (0.6-1.3); Estimated Creatinine Clearance 32.4 mL/min (>60); Globulin 2.1 gm/dL (2.3-3.5); Glucose 80 mg/dL (74-106); HDL Cholesterol 54 mg/dL (40-60); LDL Cholesterol,Calculated 35 mg/dL (0-130); Magnesium 2.4 mg/dL (1.6-2.6); Osmolality,Calculated 285 (275-295); Phosphorous 4.9 mg/dL (2.4-5.1); Potassium 4.4 mMol/L (3.4-5.1); Sodium 140 mMol/L (136-145); Thyroid Stimulating Hormone 9.19 uIU/mL (0.55-4.78); Total Protein 5.6 gm/dL (5.7-8.2); Triglycerides 108 mg/dL (30-150); eGFR 45 See Note
[2024-06-23] MEDS: DEXTROSE 50%-WATER INJ 50 ML SYRINGE 25 ML IV (05:53)
[2024-06-23] MEDS: SENNA TABLET 1 TAB PO (10:28)
[2024-06-23] MEDS: FAMOTIDINE INJ 10 MG/ML VIAL 2 ML 20 MG IVP (10:28)
[2024-06-23] MEDS: AMIODARONE HCL 200 MG TABLET PO (10:28)
[2024-06-23] MEDS: PREGABALIN 75 MG CAPSULE PO ×2 (10:30→22:05)
[2024-06-23] MEDS: APIXABAN 2.5 MG TABLET PO ×2 (10:30→22:05)
--- NOTE | 2024-06-23 10:37 | PC.SS ---
Patient Clayton Montgomery is a 88 Year old male admitted for Pontine Lesion, Intractable Abdominal Pain. SS met with patient and patient's son Ulises Casiano at bedside to complete initial assessment. Patient lives alone, patient's son reports he is Surrogate decision maker [phone]. Patient does not utilize any source of DME to assist with ambulation. Patient is able to complete all ADL's independently. Patients PCP Mulu Denise. Choice of pharmacy is [facility]. At time of discharge patients son will provide transportation. Next of Kin: Son, Oh Montgomery Dicharge plan: Home
[2024-06-23] MEDS: amLODIPine BESYLATE 2.5 MG TABLET PO (11:08)
[2024-06-23 14:30] LABS: Prostate Specific Antigen 6.09 ng/mL (0-4.00)
--- NOTE | 2024-06-23 16:51 | ESPR_ITS ---
<Statement entered by Honey Heaton MD - 06/23/24 19:21> I discussed with and supervised my co-resident involved in the care of this patient. I agree with the assessment and plan as documented above. Patient seen and evaluated at bedside. Has some mild abdominal comfort, but not experiencing it at time of evaluation. Patient states pain occurs after eating. Distant history of ulcers, per family at bedside. Has asymptomatic bradycardic, follows with cardio Dr. Capone. Plan for MRI today and EGD with Dr. Narayanan to evaluate abdominal pain. Honey Heaton MD PGY-3 Documentation for date of: 06/23/24 Subjective Subjective Interval history: Patient seen and examined at bedside. Remains bradycardic with HR 30?40 and is asymptomatic. Continues to complain of some abdominal pain however improved since receiving pain medication. Denying any constipation, diarrhea, chest pain, dizziness, no new focal neuro deficits. Currently n.p.o. for EGD this evening. MRI head, neck without contrast is pending to rule out stroke after CT head showed low density in the left brainstem at pontine level. Will continue monitoring patient's bradycardia. Exam Vital Signs Temp Pulse Resp BP Pulse Ox O2 Del Method 98.4 F 45 L 17 115/60 94 L Room Air 06/23/24 16:00 06/23/24 16:00 06/23/24 16:00 06/23/24 16:00 06/23/24 16:06/23/24 16:00 Narrative Exam General: elderly male. No acute distress, cooperative, sleeping HEENT: NCAT, No JVD noted. Mucosa moist. Pupils are equal and reactive to light bilaterally Cardiovascular: Normal S1 and S2. Regular rhythm, bradycardic Respiratory: Lungs are clear to auscultation bilaterally. No wheezing or crackles heard. Abdomen: Soft, epigastric tenderness, not distended, normal bowel sounds. Skin: Warm to touch, dry, no rashes noted Musculoskeletal: No gross injuries. Able to move all 4 extremities. No pitting edema Neuro: Alert and oriented x3. No focal neuro deficits. Psych: Normal affect and mood Objective Labs 06/24/24 05:16 06/24/24 05:16 Labs: Laboratory Results - last 24 hr 06/22/24 06/22/24 06/22/24 11:53 13:46 17:56 WBC RBC Hgb Hct MCV MCH MCHC RDW Std Deviation Plt Count Neut % (Auto) Lymph % (Auto) [place] % (Auto) Eos % (Auto) Baso % (Auto) Neut # (Auto) Lymph # (Auto) [place] # (Auto) Eos # (Auto) Baso # (Auto) Immature Gran # (Auto) Absolute Nucleated RBC Immature Gran % Nucleated RBC % ESR 19 PT INR APTT Sodium Potassium Chloride Carbon Dioxide Anion Gap BUN Creatinine Estim Creat Clear Calc eGFR BUN/Creatinine Ratio Glucose Estimated Ave Glu mg/dL Hemoglobin A1c Calculated Osmolality Calcium Corrected Calcium Phosphorus Magnesium Total Bilirubin AST ALT Alkaline Phosphatase Troponin I < 0.020 < 0.020 C-Reactive Prot, Quant < 0.4 Total Protein Albumin Globulin Albumin/Globulin Ratio Triglycerides Cholesterol LDL Cholesterol, Calc HDL Cholesterol Cholesterol/HDL Ratio Prostate Specific Ag TSH 06/23/24 06/23/24 06/23/24 02:50 02:50 02:50 WBC 8.2 RBC 3.96 L Hgb 11.5 L D Hct 34.5 L MCV 87 MCH 29.0 MCHC 33.3 RDW Std Deviation 46.7 H Plt Count 154 D Neut % (Auto) 68 Lymph % (Auto) 24 [place] % (Auto) 7 Eos % (Auto) 1 Baso % (Auto) 0 Neut # (Auto) 5.6 Lymph # (Auto) 1.9 [place] # (Auto) 0.6 Eos # (Auto) 0.1 Baso # (Auto) 0.0 Immature Gran # (Auto) 0.02 H Absolute Nucleated RBC 0.00 Immature Gran % 0 Nucleated RBC % 0 ESR PT 12.5 H INR 1.2 APTT 34.9 Sodium 140 Potassium 4.4 4.3 Chloride 108 H Carbon Dioxide 25.4 Anion Gap 7 BUN 33 H Creatinine 1.5 H Estim Creat Clear Calc 32.4 L eGFR 45 L BUN/Creatinine Ratio 22 H Glucose [address] Glu mg/dL 117 Hemoglobin A1c 5.7 Calculated Osmolality 285 Calcium 8.5 Corrected Calcium 8.9 Phosphorus 4.9 Magnesium 2.4 2.4 Total Bilirubin 0.2 L AST 24 ALT 43 Alkaline Phosphatase 64 D Troponin I C-Reactive Prot, Quant Total Protein 5.6 L Albumin 3.5 D Globulin 2.1 L Albumin/Globulin Ratio 1.7 Triglycerides 108 Cholesterol 111 L LDL Cholesterol, Calc 35 HDL Cholesterol 54 Cholesterol/HDL Ratio 2.1 L Prostate Specific Ag TSH 9.19 H D 06/23/24 14:02 WBC RBC Hgb Hct MCV MCH MCHC RDW Std Deviation Plt Count Neut % (Auto) Lymph % (Auto) [place] % (Auto) Eos % (Auto) Baso % (Auto) Neut # (Auto) Lymph # (Auto) [place] # (Auto) Eos # (Auto) Baso # (Auto) Immature Gran # (Auto) Absolute Nucleated RBC Immature Gran % Nucleated RBC % ESR PT INR APTT Sodium Potassium Chloride Carbon Dioxide Anion Gap BUN Creatinine Estim Creat Clear Calc eGFR BUN/Creatinine Ratio Glucose Estimated Ave Glu mg/dL Hemoglobin A1c Calculated Osmolality Calcium Corrected Calcium Phosphorus Magnesium Total Bilirubin AST ALT Alkaline Phosphatase Troponin I C-Reactive Prot, Quant Total Protein Albumin Globulin Albumin/Globulin Ratio Triglycerides Cholesterol LDL Cholesterol, Calc HDL Cholesterol Cholesterol/HDL Ratio Prostate Specific Ag 6.09 H TSH Quality Measures Quality Measures none Advance care planning discussed with:: patient Assessment & Plan Assessment Current Active Medications: Generic Name Dose Route Start Last Admin Trade Name Freq PRN Reason Stop Dose Admin Acetaminophen 650 mg 06/22/24 19:57 Acetaminophen 325 Mg Tablet PO 07/22/24 19:49 Q6H PRN Pain Scale 1-3 (Mild,Fever>101 Hydrocodone Bitart/Acetaminophen 1 tab 06/22/24 19:50 06/22/24 22:05 Hydrocodone/Apap 10/325 Tab PO 06/27/24 19:49 1 tab Q4H PRN Administration PAIN SCALE 4-6 (Moderate Amiodarone HCl 200 mg 06/23/24 09:00 06/23/24 10:28 Amiodarone Hcl 200 Mg Tablet PO 07/23/24 08:59 200 mg QDAY MILVIA Administration Amlodipine Besylate 2.5 mg 06/23/24 09:00 06/23/24 11:08 Amlodipine Besylate 2.5 Mg Tablet PO 07/23/24 08:59 2.5 mg QDAY MILVIA Administration Apixaban 2.5 mg 06/22/24 21:00 06/23/24 10:30 Apixaban 2.5 Mg Tablet PO 07/22/24 20:59 2.5 mg BID MILVIA Administration Atorvastatin Calcium 10 mg 06/22/24 21:00 06/22/24 20:27 Atorvastatin Calcium 10 Mg Tablet PO 07/22/24 20:59 10 mg HS MILVIA Administration Dextrose 25 ml 06/22/24 19:50 06/23/24 05:53 Dextrose 50%-Water Inj 50 Ml Syringe IV 07/22/24 19:49 25 ml Q15MIN PRN Administration BG 50-70 responsive npo pt Dextrose 50 ml 06/22/24 19:50 Dextrose 50%-Water Inj 50 Ml Syringe IV 07/22/24 19:49 Q15MIN PRN BG <50 OR BG <70 & pt unresponsive Famotidine 20 mg 06/23/24 09:00 06/23/24 10:28 Famotidine Inj 10 Mg/Ml Vial 2 Ml IVP 07/23/24 08:59 20 mg QDAY MILVIA Administration Glucagon 1 mg 06/22/24 19:50 Glucagon Inj 1 Mg Vial IM Q15MIN PRN BG <70, and no IV access Hydromorphone HCl 0.25 mg 06/22/24 19:50 Hydromorphone Inj 2 Mg/Ml Vial IVP 06/27/24 19:49 Q4H PRN Severe Pain (7-10) Insulin Human Lispro 0 unit 06/23/24 07:30 06/23/24 12:41 Insulin Lispro (Admelog) 1 Unit/0.01 Ml Unit SC 07/23/24 07:29 Not Given AC MILVIA Protocol Losartan Potassium 100 mg 06/23/24 09:00 06/23/24 10:16 Losartan Potassium 25 Mg Tablet PO 07/23/24 08:59 Not Given QDAY MILVIA Ondansetron HCl 4 mg 06/22/24 19:50 Ondansetron Inj 2 Mg/Ml Inj 2 Ml IV 07/22/24 19:49 Q6H PRN NAUSEA OR VOMITING Protocol Pregabalin 75 mg 06/22/24 21:00 06/23/24 10:30 Pregabalin 75 Mg Capsule PO 07/22/24 20:59 75 mg BID MILVIA Administration Sennosides 1 tab 06/23/24 09:00 06/23/24 10:28 Senna Tablet PO 07/23/24 08:59 1 tab QDAY MILVIA Administration Protocol Plan Clayton Montgomery is a 88-year-old male with past medical history of atrial fibrillation, type 2 diabetes mellitus, hypertension, hyperlipidemia and chronic kidney disease who presented to [facility] emergency department from home on 06/22/2024 with a chief complaint of abdominal pain and neck pain. 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 Head CT negative for acute hemorrhage mass or midline affect positive for subtle low-density in left brainstem pontine level. CT cervical spine shows no acute fracture. Teleneuro consulted in ED, no deficits, NIHSS 0 recommended admission Plan: -MRI head without contrast pending -MRI cervical spine -Consulted neurology, appreciate recommendations -Pain management #Intractable abdominal pain Patient complains of mid epigastric pain, burning. High suspicion of GERD/peptic ulcer disease. CT abdomen pelvis significant for perinephric stranding, small fat-containing umbilical hernia, mild prostatomegaly. Abdomen pelvis CTA shows bibasilar bronchiectasis, moderate vascular congestion, vascular renal arterial calcification, mild thickening of rectal wall EGD 2020: Small Erosion Esophagus, Small Hiatal Hernia Plan: -Consulted GI, Appreciate Reccs -Zofran as needed -IV Famoidine QDay -Pain Management #Asymptomatic bradycardia Patient remains asymptomatic. [employer] Manager Dr. Capone has been notified of patient's admission. States that patient patient has been worked up and remains asymptomatic with the bradycardia. Currently heart rate ranging 30?40s. EKG showing normal P, QRS complexes. -Recommendations were to decrease amiodarone to 100 mg daily -Monitor electrolytes -Follow-up outpatient #Paroxysmal atrial fibrillation EKG significant for sinus bradycardia, QTc 377, [place] 224 Plan: -Decrease amiodarone to 100 mg daily -Continue Eliquis 2.5 mg twice daily -Tele Monitoring -Keep K >4 , Mg >2 #Chronic kidney disease IIIa renal ultrasound significant for small kidneys with bilateral renal cortical thinning, moderate bilateral renal parenchymal scar formation. BUN 27 Cr 1.5 GFR 45 on admission Plan: -Monitor Renal Panel in AM -Avoid Nephrotoxic Agents -Dose Meds renally #History of type 2 diabetes On admission initial glucose 186. Last A1c on 02/07/2024 6.0. Patient takes Jardiance 25 mg, glipizide 2.5 mg daily, for diabetes at home 06/23 A1c 5.7 -Held home medications -Bedside blood glucose checks ACHS -Insulin lispro sliding scale -Carb consistent low diet -Consulted audience coordinator -Diabetes education #Pseudohyponatremia-resolved #Hypertension #Hyperlipidemia -Resumed home Amlodipine 2.5 mg daily -Resumed home dose atorvastatin 10 mg daily DVT prophylaxis: Eliquis GI prophylaxis: Famotidine daily Diet: Cardiac, carb consistent low; n.p.o. for EGD Lines: Peripheral IV Code status: Full code The patient's management plan was discussed with my attending physician Dr. Adames and senior Dr. Heaton. Jeanna Denise, PGY-1 Attending Provider Attestation/Addendum INeena, DO, attest that I was physically present for the flores portions of the service and evaluated the patient with the resident and I reviewed and discussed the case with the resident and agree with the resident's findings and plans of care as documented above Patient seen eval this a.m. Son is at bedside. Patient states that he has had postprandial pain in the past few weeks associated with high blood pressure. He also complained of headache and neck pain on presentation. MRI was ordered to rule out acute infarct as CT head showed a subtle density in left brainstem. Patient is otherwise without any focal neurological deficits. Pending EGD today. Patient denies any headache or nausea currently. Spoke with patient's head filter tank tender helper who is aware of patient's bradycardia. Patient had been taking amiodarone 200mg PO daily, but cut down to 100mg PO daily due to bradycardia. Baseline is about 40 bpm. Patient denies any lightheadedneess otherwise. Patient has been experiencing hypertension due to pain. Will f/u with EGD results.
--- NOTE | 2024-06-23 21:22 | SUR.PHASEI ---
Pt. arrived to recovery via gurney, eyes closed, responds to verbal commands, VSS, no c/o pain or nausea at this time, report received from Kriss MEYER.
--- NOTE | 2024-06-23 21:43 | SUR.PHASEI ---
Called and gave report on pt. s/p procedure to Yoly MEYER on M/S unit.
--- NOTE | 2024-06-23 21:45 | SUR.PHASEI ---
Pt. transferred to room 356 via JASON day, no c/o pain or nausea at this time, IV flushed and patent. Yoly MEYER assumed care of pt.
[2024-06-23] MEDS: ATORVASTATIN CALCIUM 10 MG TABLET PO (22:06)
[2024-06-23] MEDS: HYDROcodone/APAP 10/325 TAB PO (22:58)
--- NOTE | 2024-06-23 23:43 | PD.NEUROPROG ---
Documentation for date of: 06/23/24 Subjective Subjective Interval history: Patient was seen and MedSurg today with his family at the bedside. His headache and the neck pain or getting better he is. Waiting to get upper GI endoscopy to evaluate for abdominal pain. He is concerned about the tremors and trouble with fine motor movements in his hands. Exam - Neurology Vital Signs Temp Pulse Resp BP Pulse Ox O2 Del Method O2 Flow Rate 97.4 F 44 L 20 123/65 97 Room Air 2 06/23/24 21:42 06/23/24 23:38 06/23/24 21:42 06/23/24 21:42 06/23/24 21:42 06/23/24 20:00 06/23/24 21:42 Narrative Exam GENERAL APPEARANCE: Well hydrated, well-nourished in no acute distress. HEENT: Normocephalic, atraumatic, extraocular movements intact. Pupils: Equal reacting to light and accommodation NECK: Supple, no JVD or bruits. CARDIOVASULAR: Heart: S1, S2 heard, regular without S3-S4 or murmur no rubs or gallops. LUNGS/CHEST: Clear to auscultation bilaterally. No rails, rhonchi, or wheezing. Normal inspection. ABDOMEN: Soft, nontender, with normal bowel sounds. No pulsatile masses. No rebound, rigidity, or guarding. Normal inspection and palpation. EXTREMITIES: Normal inspection and palpation. No edema, clubbing or cyanosis. SKIN: Warm and dry without rashes. Normal inspection. MUSCULOSKELETAL: No cervical, thoracic, lumbar or midline bony tenderness. Normal inspection. NEURO: Alert, awake and oriented x3. Cranial nerves: II through XII grossly intact. Speech and language: Normal with no dysarthria or dysphasia. Motor system: Tone and bulk: Normal: Strength: 5 out of 5 in all 4 extremities; No pronator drift noted. Deep tendon reflexes: 2+ bilaterally symmetrical. Plantar reflex: Downgoing bilaterally. Sensory system: Intact to all modalities of sensation bilaterally. Coordination: Intact to [id number] and axuz-[id number]-[id number] test bilaterally. No ataxia, no dysmetria, or dysdiadochokinesia noted. No intention tremors noted. Gait: Normal. Toe, heel, tandem walk all are normal. Romberg: Negative. No signs of meningeal irritation noted. PSYCHIATRIC: Normal mood and affect. Objective Labs 06/23/24 02:50 06/23/24 02:50 Labs: Laboratory Results - last 24 hr 06/23/24 06/23/24 06/23/24 02:50 02:50 02:50 WBC 8.2 RBC 3.96 L Hgb 11.5 L D Hct 34.5 L MCV 87 MCH 29.0 MCHC 33.3 RDW Std Deviation 46.7 H Plt Count 154 D Neut % (Auto) 68 Lymph % (Auto) 24 [place] % (Auto) 7 Eos % (Auto) 1 Baso % (Auto) 0 Neut # (Auto) 5.6 Lymph # (Auto) 1.9 [place] # (Auto) 0.6 Eos # (Auto) 0.1 Baso # (Auto) 0.0 Immature Gran # (Auto) 0.02 H Absolute Nucleated RBC 0.00 Immature Gran % 0 Nucleated RBC % 0 PT 12.5 H INR 1.2 APTT 34.9 Sodium 140 Potassium 4.4 4.3 Chloride 108 H Carbon Dioxide 25.4 Anion Gap 7 BUN 33 H Creatinine 1.5 H Estim Creat Clear Calc 32.4 L eGFR 45 L BUN/Creatinine Ratio 22 H Glucose [address] Glu mg/dL 117 Hemoglobin A1c 5.7 Calculated Osmolality 285 Calcium 8.5 Corrected Calcium 8.9 Phosphorus 4.9 Magnesium 2.4 2.4 Total Bilirubin 0.2 L AST 24 ALT 43 Alkaline Phosphatase 64 D Total Protein 5.6 L Albumin 3.5 D Globulin 2.1 L Albumin/Globulin Ratio 1.7 Triglycerides 108 Cholesterol 111 L LDL Cholesterol, Calc 35 HDL Cholesterol 54 Cholesterol/HDL Ratio 2.1 L Prostate Specific Ag TSH 9.19 H D 06/23/24 14:02 WBC RBC Hgb Hct MCV MCH MCHC RDW Std Deviation Plt Count Neut % (Auto) Lymph % (Auto) [place] % (Auto) Eos % (Auto) Baso % (Auto) Neut # (Auto) Lymph # (Auto) [place] # (Auto) Eos # (Auto) Baso # (Auto) Immature Gran # (Auto) Absolute Nucleated RBC Immature Gran % Nucleated RBC % PT INR APTT Sodium Potassium Chloride Carbon Dioxide Anion Gap BUN Creatinine Estim Creat Clear Calc eGFR BUN/Creatinine Ratio Glucose Estimated Ave Glu mg/dL Hemoglobin A1c Calculated Osmolality Calcium Corrected Calcium Phosphorus Magnesium Total Bilirubin AST ALT Alkaline Phosphatase Total Protein Albumin Globulin Albumin/Globulin Ratio Triglycerides Cholesterol LDL Cholesterol, Calc HDL Cholesterol Cholesterol/HDL Ratio Prostate Specific Ag 6.09 H TSH Assessment & Plan Assessment and plan (1) Headache: Status: Acute Assessment and plan: Reassurance given to the patient that the could be related to blood pressure fluctuation. Continue with better blood pressure control without dropping the heart rate. Noted his heart rate sometimes goes into the 30s. (2) Neuropathy: Status: Chronic Assessment and plan: Continue with pregabalin with close monitoring of his kidney function. Reassurance given to the patient regarding the tremors related to amiodarone and not Parkinson's/essential tremor Continue with stretching exercises and using squeezes/Play-Thierry to help with fine motor movements/handgrip. (3) Abdominal pain, lower: Status: Acute Assessment and plan: Follow-up with upper GI endoscopy results.
[2024-06-24] VITALS (12 sets, daily range): BP systolic 106–186; BP diastolic 60–85; PULSE 40–61; RESP 13–96; TEMP 36.1–36.6; O2SAT 93–100; BMI 28.8
--- NOTE | 2024-06-24 | XR_ITS ---
Examination: MRI brain without intravenous contrast. Date and time of exam: June 24, 2024 at 0958 hrs. Indications: CT stroke alert June 22, 2024, onset focal neurologic deficit, subtle low density in the left brainstem on CT brain scan June 22, 2024, headaches one week Technique: Multiple axial and sagittal images of the brain obtained. Siemens high-resolution 1.5 Niharika short bore scanners utilized. Sagittal sections, T1-weighted, TR 500, TE 14, are performed. Axial sections proton-density and T2-weighted have been obtained. Inversion recovery axial images, TR 9, 260, TE 111, TI 2500. Diffusion weighted images, axial sections, TR 4800, TE 128, B value 1000 Axial sections, ADC map, TR 4800, TE 128 Findings: Enlargement of the sella turcica is not present. The optic chiasm and infundibular are not remarkable. Prepontine and interpeduncular cisterns are not enlarged. There is no localized enlargement of the medulla or cindy. Fourth ventricle and cerebellar tonsils appear normal in position. No subacute area of hemorrhage density is seen. Mass in the cerebellopontine angle region is not evident. Globes symmetrical. Orbital musculature including medial lateral rectus muscles do not exhibit abnormality. Diffusion-weighted images demonstrate no focus of restricted diffusion. Increased white matter signal prominent Mass effect upon the ventricular system is not identified. Impression: Negative for acute hemorrhage mass effect or midline shift No acute infarct No infarct in the brainstem Prominent chronic microvascular white matter change
--- NOTE | 2024-06-24 | XR_ITS ---
Examination: MRI cervical spine without intravenous contrast Date and time of exam: July 04, 2024 1012 hrs. Indications: Neck pain one week, CT spine study June 22, 2024 significant spinal stenosis Technique: Multiple axial and sagittal sections of the cervical spine to been obtained. T2 weighted sagittal sections, TR 3, 270, TE 117 T1-weighted sagittal sections, TR 500, TE 11 T1-weighted axial sections, TR 607, TE 12, axial sections TR 18, TE 27 and T2 weighted transverse sections, TR 3920, TE 122. Findings: Adequate alignment cervical vertebral bodies Cervical fusion C5-C7 with anatomic alignment Diffuse cervical disc desiccation Mild disc narrowing C7-T1 T1-T2 No localized enlargement cervical cord C2-C3 no disc protrusion C3-C4 moderate overall spinal stenosis, 3 mm central subarticular osteophyte disc complex, indenting the ventral margin cervical cord, advanced bilateral neural foraminal stenosis C4-C5 moderate overall spinal stenosis, 2 mm central subarticular osteophyte disc complex with advanced bilateral neural foraminal stenosis C5-C6 prominent uncinate process hypertrophy with advanced bilateral neural foraminal stenosis C6-C7 prominent uncinate process hypertrophy with advanced bilateral neural foraminal stenosis C7-T1 moderate bilateral neural foraminal stenosis Impression: Significant spinal stenosis as above This includes advanced bilateral neural foraminal stenosis C3-C4, C4-C5, C5-C6, C6-C7
[2024-06-24 06:02] LABS: Basophils % (Auto) 1 % (0-2.5); Eosinophils # (Auto) 0.1 Thou/mm3 (0.0-0.5); Eosinophils % (Auto) 2 % (0-10); Hematocrit 34.8 % (41.0-53.0); Hemoglobin 11.5 g/dL (13.5-16.0); Immature Granulocytes % (Auto) 0 % (0-0); Immature Granulocytes Auto 0.01 Thou/mm3 (0.00-0.00); Lymphocytes # (Auto) 2.1 Thou/mm3 (1.0-4.8); Lymphocytes % (Auto) 34 % (10-50); Mean Corpuscular Hemoglobin 29.1 pg (25.0-35.0); Mean Corpuscular Volume 88 fL (80-100); Monocytes # (Auto) 0.5 Thou/mm3 (0.0-0.8); Monocytes % (Auto) 9 % (0-12); Neutrophils # (Auto) 3.3 Thou/mm3 (1.8-7.7); Neutrophils % (Auto) 54 % (37-80); Nucleated Red Blood Cell % 0 /100 WBC (0); Platelet Count 147 Thou/mm3 (140-440); RDW Standard Deviation 48.3 fL (35.1-43.9); Red Blood Count 3.95 Miln/mm3 (4.50-5.90); White Blood Count 6.1 Thou/mm3 (3.8-10.6)
[2024-06-24 06:37] LABS: Alanine Aminotransferase 34 U/L (10-49); Albumin, Serum 3.4 gm/dL (3.4-4.8); Albumin/Globulin Ratio 1.5 (1.2-2.2); Alkaline Phosphatase 64 U/L (46-116); Anion Gap 6 (7-16); Aspartate Amino Transferase 19 U/L (0-34); BUN/Creatinine Ratio 19 Ratio (12-20); Bilirubin,Total 0.3 mg/dL (0.3-1.2); Blood Urea Nitrogen 32 mg/dL (9-23); Calcium 8.6 mg/dL (8.3-10.6); Calcium (Corrected) 9.1 mg/dL (8.5-10.1); Carbon Dioxide 26.3 mMol/L (20.0-31.0); Chloride 107 mMol/L (98-107); Creatinine (Component) 1.7 mg/dL (0.6-1.3); Globulin 2.3 gm/dL (2.3-3.5); Glucose 85 mg/dL (74-106); Magnesium 2.5 mg/dL (1.6-2.6); Osmolality,Calculated 283 (275-295); Phosphorous 4.7 mg/dL (2.4-5.1); Potassium 4.7 mMol/L (3.4-5.1); Sodium 139 mMol/L (136-145); Total Protein 5.7 gm/dL (5.7-8.2); eGFR 39 See Note
[2024-06-24] MEDS: APIXABAN 2.5 MG TABLET PO ×2 (08:00→21:00)
[2024-06-24] MEDS: AMIODARONE HCL 200 MG TABLET 100 MG PO (08:56)
[2024-06-24] MEDS: PREGABALIN 75 MG CAPSULE PO ×2 (08:58→21:00)
[2024-06-24] MEDS: FAMOTIDINE INJ 10 MG/ML VIAL 2 ML 20 MG IVP (08:59)
[2024-06-24] MEDS: SENNA TABLET 1 TAB PO (08:59)
[2024-06-24] MEDS: amLODIPine BESYLATE 2.5 MG TABLET PO ×2 (09:13→14:17)
[2024-06-24] MEDS: AMOXICILLIN/POT CLAV 500 MG TABLET PO ×2 (11:39→21:00)
[2024-06-24] MEDS: LOSARTAN POTASSIUM 25 MG TABLET 100 MG PO (12:30)
--- NOTE | 2024-06-24 13:54 | PD.IMPROG ---
Documentation for date of: 06/24/24 Subjective Subjective Interval history: Patient evaluated Upper endoscopy showed gastritis and esophagitis Liver ultrasound absent gallbladder common bile duct 9 mm but normal LFTs this is mostly consistent with postcholecystectomy state No need for an MRCP Exam Vital Signs Temp Pulse Resp BP Pulse Ox O2 Del Method O2 Flow Rate 97.8 F 56 L 17 186/85 H 98 Room Air 2 06/24/24 12:00 06/24/24 12:30 06/24/24 12:00 06/24/24 12:30 06/24/24 12:00 06/24/24 12:00 06/24/24 00:00 Objective Labs 06/24/24 05:16 06/24/24 05:16 Labs: Laboratory Results - last 24 hr 06/23/24 06/24/24 14:02 05:16 WBC 6.1 RBC 3.95 L Hgb 11.5 L Hct 34.8 L MCV 88 MCH 29.1 MCHC 33.0 RDW Std Deviation 48.3 H Plt Count 147 Neut % (Auto) 54 Lymph % (Auto) 34 [place] % (Auto) 9 Eos % (Auto) 2 Baso % (Auto) 1 Neut # (Auto) 3.3 Lymph # (Auto) 2.1 [place] # (Auto) 0.5 Eos # (Auto) 0.1 Baso # (Auto) 0.0 Immature Gran # (Auto) 0.01 H Absolute Nucleated RBC 0.00 Immature Gran % 0 Nucleated RBC % 0 Sodium 139 Potassium 4.7 Chloride 107 Carbon Dioxide 26.3 Anion Gap 6 L BUN 32 H Creatinine 1.7 H Estim Creat Clear Calc 31.0 L eGFR 39 L BUN/Creatinine Ratio 19 Glucose 85 Calculated Osmolality 283 Calcium 8.6 Corrected Calcium 9.1 Phosphorus 4.7 Magnesium 2.5 Total Bilirubin 0.3 AST 19 ALT 34 Alkaline Phosphatase 64 Total Protein 5.7 Albumin 3.4 Globulin 2.3 Albumin/Globulin Ratio 1.5 Prostate Specific Ag 6.09 H Impressions Impression: # Gastritis # Esophagitis # Mildly dilated CBD normal LFTs consistent with postcholecystectomy state Assessment & Plan A&P Narrative # Pain abdomen epigastric etiology uncertain No evidence on CT scan imaging of mesenteric ischemia Suggest Gallbladder ultrasound Fiberoptic esophagogastroduodenoscopy with possible biopsy possible therapeutic intervention scheduled for tomorrow Other medical problems include Diabetes mellitus type 2 Essential hypertension Hyperlipidemia CKD Acute left brainstem infarct Thank you very much for the opportunity to participate in the care of this patient Time Spent With Patient Time: Total time spent is greater than 50% in coordination of care (as documented) at patient's floor/unit and/or counseling patient:
--- NOTE | 2024-06-24 14:03 | XR_ITS ---
Examination: Abdomen AP single view Technique: AP portable supine abdomen, single view Exam date and time: June 2024 1537 hrs. Indications: Onset abdominal pain today Findings: Moderate air and stool throughout the colon No obstruction No free air Moderate bilateral hip osteoarthritis Impression: Nonobstructive bowel gas pattern
[2024-06-24] MEDS: SUCRALFATE 1 GM TABLET PO ×2 (14:15→21:00)
[2024-06-24] MEDS: LIDOCAINE VISCOUS 2% 15 ML UDC PO ×2 (14:15→21:00)
[2024-06-24] MEDS: MG HYD/AL HYD/SIME (Maalox Reg) SUSP 30 ML UDC PO ×2 (14:15→21:00)
--- NOTE | 2024-06-24 14:53 | PD.RESPRO ---
Documentation for date of: 06/24/24 Subjective Subjective Interval history: Patient seen and examined at bedside. No acute events overnight. Continues to remain bradycardic pulse ranging 48?52. Pressure has been slowly increasing. Will restart losartan 100 mg daily and increase amlodipine to 5 mg daily for tighter BP control. Family was at bedside and extensively counseled on plan of care. At this time, source of abdominal pain possible due to esophagitis/gastritis/home stressors. EGD was done yesterday and biopsies are pending. Patient continues to complain of abdominal pain and headaches after eating. All abdominal imaging was negative for underlying pathology. Will start on Maalox, viscous lidocaine, sucralfate. Follow up on 24-hour metanephrine urine test to rule out pheochromocytoma. Follow up on KUB. MRI brain without contrast was negative for any acute findings, hemorrhage. Anticipate discharge in next 24 hours if patient's abdominal pain and hypertension improves. Exam Vital Signs Temp Pulse Resp BP Pulse Ox O2 Del Method O2 Flow Rate 97.8 F 61 17 157/76 H 98 Room Air 2 06/24/24 12:00 06/24/24 14:17 06/24/24 12:00 06/24/24 14:17 06/24/24 12:00 06/24/24 12:00 06/24/24 00:00 Narrative Exam General: elderly male. No acute distress, cooperative, sleeping HEENT: NCAT, No JVD noted. Mucosa moist. Pupils are equal and reactive to light bilaterally Cardiovascular: Normal S1 and S2. Regular rhythm, bradycardic Respiratory: Lungs are clear to auscultation bilaterally. No wheezing or crackles heard. Abdomen: Soft, epigastric tenderness, not distended, normal bowel sounds. Skin: Warm to touch, dry, no rashes noted Musculoskeletal: No gross injuries. Able to move all 4 extremities. No pitting edema Neuro: Alert and oriented x3. No focal neuro deficits. Psych: Normal affect and mood Objective Labs 06/25/24 04:57 06/25/24 04:57 Labs: Laboratory Results - last 24 hr 06/24/24 05:16 WBC 6.1 RBC 3.95 L Hgb 11.5 L Hct 34.8 L MCV 88 MCH 29.1 MCHC 33.0 RDW Std Deviation 48.3 H Plt Count 147 Neut % (Auto) 54 Lymph % (Auto) 34 [place] % (Auto) 9 Eos % (Auto) 2 Baso % (Auto) 1 Neut # (Auto) 3.3 Lymph # (Auto) 2.1 [place] # (Auto) 0.5 Eos # (Auto) 0.1 Baso # (Auto) 0.0 Immature Gran # (Auto) 0.01 H Absolute Nucleated RBC 0.00 Immature Gran % 0 Nucleated RBC % 0 Sodium 139 Potassium 4.7 Chloride 107 Carbon Dioxide 26.3 Anion Gap 6 L BUN 32 H Creatinine 1.7 H Estim Creat Clear Calc 31.0 L eGFR 39 L BUN/Creatinine Ratio 19 Glucose 85 Calculated Osmolality 283 Calcium 8.6 Corrected Calcium 9.1 Phosphorus 4.7 Magnesium 2.5 Total Bilirubin 0.3 AST 19 ALT 34 Alkaline Phosphatase 64 Total Protein 5.7 Albumin 3.4 Globulin 2.3 Albumin/Globulin Ratio 1.5 Quality Measures Quality Measures none Advance care planning discussed with:: patient Assessment & Plan Assessment Current Active Medications: Generic Name Dose Route Start Last Admin Trade Name Freq PRN Reason Stop Dose Admin Acetaminophen 650 mg 06/22/24 19:57 Acetaminophen 325 Mg Tablet PO 07/22/24 19:49 Q6H PRN Pain Scale 1-3 (Mild,Fever>101 Hydrocodone Bitart/Acetaminophen 1 tab 06/22/24 19:50 06/23/24 22:58 Hydrocodone/Apap 10/325 Tab PO 06/27/24 19:49 1 tab Q4H PRN Administration PAIN SCALE 4-6 (Moderate Amiodarone HCl 100 mg 06/24/24 09:00 06/24/24 08:56 Amiodarone Hcl 200 Mg Tablet PO 07/24/24 08:59 100 mg QDAY MILVIA Administration Amlodipine Besylate 5 mg 06/25/24 09:00 Amlodipine Besylate 5 Mg Tablet PO 07/25/24 08:59 QDAY MILVIA Amoxicillin/Clavulanate Potassium 500 mg 06/24/24 11:00 06/24/24 11:39 Amoxicillin/Pot Clav 500 Mg Tablet PO 07/01/24 10:59 500 mg BID MILVIA Administration Apixaban 2.5 mg 06/22/24 21:00 06/24/24 08:00 Apixaban 2.5 Mg Tablet PO 07/22/24 20:59 2.5 mg BID MILVIA Administration Atorvastatin Calcium 10 mg 06/22/24 21:00 06/23/24 22:06 Atorvastatin Calcium 10 Mg Tablet PO 07/22/24 20:59 10 mg HS MILVIA Administration Dextrose 25 ml 06/22/24 19:50 06/23/24 05:53 Dextrose 50%-Water Inj 50 Ml Syringe IV 07/22/24 19:49 25 ml Q15MIN PRN Administration BG 50-70 responsive npo pt Dextrose 50 ml 06/22/24 19:50 Dextrose 50%-Water Inj 50 Ml Syringe IV 07/22/24 19:49 Q15MIN PRN BG <50 OR BG <70 & pt unresponsive Famotidine 10 mg 06/25/24 09:00 Famotidine Inj 10 Mg/Ml Vial 2 Ml IVP 07/23/24 08:59 QDAY MILVIA Glucagon 1 mg 06/22/24 19:50 Glucagon Inj 1 Mg Vial IM Q15MIN PRN BG <70, and no IV access Hydromorphone HCl 0.25 mg 06/22/24 19:50 Hydromorphone Inj 2 Mg/Ml Vial IVP 06/27/24 19:49 Q4H PRN Severe Pain (7-10) Insulin Human Lispro 0 unit 06/23/24 07:30 06/24/24 11:48 Insulin Lispro (Admelog) 1 Unit/0.01 Ml Unit SC 07/23/24 07:29 Not Given AC [facility] Protocol Losartan Potassium 100 mg 06/24/24 12:30 06/24/24 12:30 Losartan Potassium 25 Mg Tablet PO 07/23/24 08:59 100 mg QDAY MILVIA Administration Metoclopramide HCl 5 mg 06/24/24 18:00 Metoclopramide Inj 5 Mg/Ml Vial 2 Ml IVP 07/24/24 17:59 Q6HR MILVIA Protocol Ondansetron HCl 4 mg 06/22/24 19:50 Ondansetron Inj 2 Mg/Ml Inj 2 Ml IV 07/22/24 19:49 Q6H PRN NAUSEA OR VOMITING Protocol Pregabalin 75 mg 06/22/24 21:00 06/24/24 08:58 Pregabalin 75 Mg Capsule PO 07/22/24 20:59 75 mg BID MILVIA Administration Sennosides 1 tab 06/23/24 09:00 06/24/24 08:59 Senna Tablet PO 07/23/24 08:59 1 tab QDAY MILVIA Administration Protocol Sucralfate 1 gm 06/24/24 14:00 06/24/24 14:15 Sucralfate 1 Gm Tablet PO 07/24/24 13:59 1 gm TID MILVIA Administration Plan Clayton Montgomery is a 88-year-old male with past medical history of atrial fibrillation, type 2 diabetes mellitus, hypertension, hyperlipidemia and chronic kidney disease who presented to [facility] emergency department from home on 06/22/2024 with a chief complaint of abdominal pain and neck pain. 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 Head CT negative for acute hemorrhage mass or midline affect positive for subtle low-density in left brainstem pontine level. CT cervical spine shows no acute fracture. Teleneuro consulted in ED, no deficits, NIHSS 0 recommended admission Plan: -MRI head without contrast significant for acute hemorrhage, mass, no acute infarcts, no brainstem infarcts. Prominent for chronic microvascular white matter change. -MRI cervical spine showed significant spinal stenosis -Neurology is not concerned with acute stroke at this time. Commendations were to continue stretching exercises and use squeezing/Play-Thierry to help with fine motor movements/handgrip. -Pain management #Intractable abdominal pain #Esophagtitis/gastritis Patient complains of mid epigastric pain, burning. High suspicion of GERD/peptic ulcer disease. CT abdomen pelvis significant for perinephric stranding, small fat-containing umbilical hernia, mild prostatomegaly. Abdomen pelvis CTA shows bibasilar bronchiectasis, moderate vascular congestion, vascular renal arterial calcification, mild thickening of rectal wall EGD 2020: Small Erosion Esophagus, Small Hiatal Hernia Plan: -Consulted GI, Appreciate Reccs -EGD showed esophagitis/gastritis. Recommendations per Dr. Narayanan to continue PUD diet. -Follow-up on biopsies -follow up on KUB -Zofran as needed -IV Famoidine QDay -Pain Management with viscous lidocaine, Maalox, sucralfate. #Asymptomatic bradycardia Patient remains asymptomatic. Manufacturing Baker Dr. Capone has been notified of patient's admission. States that patient patient has been worked up and remains asymptomatic with the bradycardia. Currently heart rate ranging 30?40s. EKG showing normal P, QRS complexes. -Recommendations were to decrease amiodarone to 100 mg daily -Monitor electrolytes -Follow-up outpatient #Paroxysmal atrial fibrillation EKG significant for sinus bradycardia, QTc 377, MO 224 Plan: -Decrease amiodarone to 100 mg daily -Continue Eliquis 2.5 mg twice daily -Tele Monitoring -Keep K >4 , Mg >2 #Chronic kidney disease IIIa renal ultrasound significant for small kidneys with bilateral renal cortical thinning, moderate bilateral renal parenchymal scar formation. BUN 27 Cr 1.5 GFR 45 on admission Plan: -Monitor Renal Panel in AM -Avoid Nephrotoxic Agents -Dose Meds renally #History of type 2 diabetes On admission initial glucose 186. Last A1c on 02/07/2024 6.0. Patient takes Jardiance 25 mg, glipizide 2.5 mg daily, for diabetes at home 06/23 A1c 5.7 -Held home medications -Bedside blood glucose checks ACHS -Insulin lispro sliding scale -Carb consistent low diet -Consulted craft demonstrator -Diabetes education #Pseudohyponatremia-resolved #Hypertension #Hyperlipidemia -Increased amlodipine to 5 mg daily -Started losartan 100 mg daily -Resumed home dose atorvastatin 10 mg daily -Follow-up on 24-hour urine metanephrine test to rule out pheochromocytoma. At this time, most likely hypertension due to underlying stressing factors and abdominal pain. There was improvement in BP after starting losartan and increasing amlodipine. -trend BP -adjust as needed DVT prophylaxis: Eliquis GI prophylaxis: Famotidine daily Diet: Cardiac, carb consistent low; n.p.o. for EGD Lines: Peripheral IV Code status: Full code The patient's management plan was discussed with my attending physician Dr. Adames. Jeanna Denise, PGY-1 Attending Provider Attestation/Addendum Neena Bush, DO, attest that I was physically present for the flores portions of the service and evaluated the patient with the resident and I reviewed and discussed the case with the resident and agree with the resident's findings and plans of care as documented above Patient seen and evaluated this AM. He endorsed having epigastric pain after eating breakfast. BP has otherwise been well controlled. Patient denies any headache. Will do 24h urine collection for urine free metanephrine to rule out pheochromocytoma. However, low suspicion for pheochromocytoma as patient has not been tachycardic or diaphoretic. Will increase amlodipine due to elevated BP. EGD done yesterday showed esophagitis and nonerosive gastritis with erythema. will continue pepcid and added GI cocktail. Spoke with GI regarding recurrent epigastric pain, which is the likely cause of his spike in BP and headache. Will order KUB. He is noted to have ESBL E.coli on urine culture sensitive to augmentin. Patient denies any dysuria or urinary symptoms. Will start on augmentin. Anticipate DC within next 24h
[2024-06-24] MEDS: METOCLOPRAMIDE INJ 5 MG/ML VIAL 2 ML IVP ×2 (17:12→23:10)
--- NOTE | 2024-06-24 18:38 | PC.NURSE ---
Pt family came to nurses station and asked for a chair for the room, informed family that per floor standards, only two chairs can be in a room at a time, and a third chair could not be provided. Family expressed that they were trying to comfort the patient, RN stated that she understood, but because the hospital visiting policy is only two visitors, only two chairs can be provided. RN then explained that it becomes a safety and access issue should an emergency occur, and the furniture could impede patient care. Family returned to room with only a nod.
[2024-06-24] MEDS: HYDROcodone/APAP 10/325 TAB PO (20:59)
[2024-06-24] MEDS: ATORVASTATIN CALCIUM 10 MG TABLET PO (21:00)
--- NOTE | 2024-06-24 22:16 | PD.NEUROPROG ---
Documentation for date of: 06/24/24 Subjective Subjective Interval history: Patient was seen and MedSurg today with his family at the bedside. His headache and the neck pain are resolved. Upper GI endoscopy to evaluate for abdominal pain showed gastritis and esophagitis. His family is concerned about the blood pressure fluctuation after he eats Exam - Neurology Vital Signs Temp Pulse Resp BP Pulse Ox O2 Del Method O2 Flow Rate 97.8 F 56 L 18 161/70 H 100 Room Air 2 06/24/24 20:00 06/24/24 20:00 06/24/24 20:00 06/24/24 20:00 06/24/24 20:00 06/24/24 20:00 06/24/24 20:00 Narrative Exam GENERAL APPEARANCE: Well hydrated, well-nourished in no acute distress. HEENT: Normocephalic, atraumatic, extraocular movements intact. Pupils: Equal reacting to light and accommodation NECK: Supple, no JVD or bruits. CARDIOVASULAR: Heart: S1, S2 heard, regular without S3-S4 or murmur no rubs or gallops. LUNGS/CHEST: Clear to auscultation bilaterally. No rails, rhonchi, or wheezing. Normal inspection. ABDOMEN: Soft, nontender, with normal bowel sounds. No pulsatile masses. No rebound, rigidity, or guarding. Normal inspection and palpation. EXTREMITIES: Normal inspection and palpation. No edema, clubbing or cyanosis. SKIN: Warm and dry without rashes. Normal inspection. MUSCULOSKELETAL: No cervical, thoracic, lumbar or midline bony tenderness. Normal inspection. NEURO: Alert, awake and oriented x3. Cranial nerves: II through XII grossly intact. Speech and language: Normal with no dysarthria or dysphasia. Motor system: Tone and bulk: Normal: Strength: 5 out of 5 in all 4 extremities; No pronator drift noted. Deep tendon reflexes: 2+ bilaterally symmetrical. Plantar reflex: Downgoing bilaterally. Sensory system: Intact to all modalities of sensation bilaterally. Coordination: Intact to [id number] and ckmp-zjbk-ojty test bilaterally. No ataxia, no dysmetria, or dysdiadochokinesia noted. No intention tremors noted. Gait: Normal. Toe, heel, tandem walk all are normal. Romberg: Negative. No signs of meningeal irritation noted. PSYCHIATRIC: Normal mood and affect. Objective Labs 06/25/24 04:57 06/25/24 04:57 Labs: Laboratory Results - last 24 hr 06/24/24 05:16 WBC 6.1 RBC 3.95 L Hgb 11.5 L Hct 34.8 L MCV 88 MCH 29.1 MCHC 33.0 RDW Std Deviation 48.3 H Plt Count 147 Neut % (Auto) 54 Lymph % (Auto) 34 [place] % (Auto) 9 Eos % (Auto) 2 Baso % (Auto) 1 Neut # (Auto) 3.3 Lymph # (Auto) 2.1 [place] # (Auto) 0.5 Eos # (Auto) 0.1 Baso # (Auto) 0.0 Immature Gran # (Auto) 0.01 H Absolute Nucleated RBC 0.00 Immature Gran % 0 Nucleated RBC % 0 Sodium 139 Potassium 4.7 Chloride 107 Carbon Dioxide 26.3 Anion Gap 6 L BUN 32 H Creatinine 1.7 H Estim Creat Clear Calc 31.0 L eGFR 39 L BUN/Creatinine Ratio 19 Glucose 85 Calculated Osmolality 283 Calcium 8.6 Corrected Calcium 9.1 Phosphorus 4.7 Magnesium 2.5 Total Bilirubin 0.3 AST 19 ALT 34 Alkaline Phosphatase 64 Total Protein 5.7 Albumin 3.4 Globulin 2.3 Albumin/Globulin Ratio 1.5 Assessment & Plan Assessment and plan (1) Headache: Status: Acute Assessment and plan: Reassurance given to the patient that this could be related to blood pressure fluctuation/clonidine can cause blood pressure fluctuation to Continue with better blood pressure control without dropping the heart rate. Noted his heart rate sometimes goes into the 30s. (2) Neuropathy: Status: Chronic Assessment and plan: Continue with pregabalin with close monitoring of his kidney function. Reassurance given to the patient regarding the tremors related to amiodarone and not Parkinson's/essential tremor Continue with stretching exercises and using squeezes/Play-Thierry to help with fine motor movements/handgrip. (3) Abdominal pain, lower: Status: Acute Assessment and plan: Going for colonoscopy tomorrow.
[2024-06-24] MEDS: POLYETHYLENE GLYCOL 17 GM PACKET PO (23:10)
[2024-06-25] VITALS (11 sets, daily range): BP systolic 142–167; BP diastolic 74–84; PULSE 48–62; RESP 16–96; TEMP 36.3–36.5; O2SAT 94–97; BMI 28.8
--- NOTE | 2024-06-25 04:30 | PC.NURSE ---
Patient discarded first morning void, second void collected. 24 hour urine collection started at 0400
[2024-06-25] MEDS: SUCRALFATE 1 GM TABLET PO ×3 (05:16→21:02)
[2024-06-25] MEDS: METOCLOPRAMIDE INJ 5 MG/ML VIAL 2 ML IVP ×4 (05:16→23:04)
[2024-06-25 06:00] LABS: Basophils % (Auto) 1 % (0-2.5); Eosinophils # (Auto) 0.2 Thou/mm3 (0.0-0.5); Eosinophils % (Auto) 3 % (0-10); Hematocrit 37.9 % (41.0-53.0); Hemoglobin 12.7 g/dL (13.5-16.0); Immature Granulocytes % (Auto) 0 % (0-0); Immature Granulocytes Auto 0.01 Thou/mm3 (0.00-0.00); Lymphocytes % (Auto) 33 % (10-50); Mean Corpuscular HGB Conc 33.5 g/dl (31.0-37.0); Mean Corpuscular Hemoglobin 29.1 pg (25.0-35.0); Mean Corpuscular Volume 87 fL (80-100); Monocytes # (Auto) 0.6 Thou/mm3 (0.0-0.8); Monocytes % (Auto) 10 % (0-12); Neutrophils # (Auto) 3.2 Thou/mm3 (1.8-7.7); Neutrophils % (Auto) 54 % (37-80); Nucleated Red Blood Cell % 0 /100 WBC (0); Platelet Count 150 Thou/mm3 (140-440); RDW Standard Deviation 47.6 fL (35.1-43.9); Red Blood Count 4.36 Miln/mm3 (4.50-5.90)
[2024-06-25 06:21] LABS: Alanine Aminotransferase 33 U/L (10-49); Albumin, Serum 3.9 gm/dL (3.4-4.8); Albumin/Globulin Ratio 1.5 (1.2-2.2); Alkaline Phosphatase 71 U/L (46-116); Anion Gap 5 (7-16); Aspartate Amino Transferase 22 U/L (0-34); BUN/Creatinine Ratio 24 Ratio (12-20); Bilirubin,Total 0.3 mg/dL (0.3-1.2); Blood Urea Nitrogen 33 mg/dL (9-23); Calcium 9.1 mg/dL (8.3-10.6); Calcium (Corrected) 9.2 mg/dL (8.5-10.1); Carbon Dioxide 27.4 mMol/L (20.0-31.0); Chloride 106 mMol/L (98-107); Creatinine (Component) 1.4 mg/dL (0.6-1.3); Estimated Creatinine Clearance 37.7 mL/min (>60); Globulin 2.6 gm/dL (2.3-3.5); Glucose 80 mg/dL (74-106); Magnesium 2.2 mg/dL (1.6-2.6); Osmolality,Calculated 281 (275-295); Phosphorous 3.2 mg/dL (2.4-5.1); Sodium 138 mMol/L (136-145); Total Protein 6.5 gm/dL (5.7-8.2); eGFR 49 See Note
[2024-06-25] MEDS: POLYETHYLENE GLYCOL 17 GM PACKET PO (08:02)
[2024-06-25] MEDS: FAMOTIDINE INJ 10 MG/ML VIAL 2 ML IVP (08:02)
[2024-06-25] MEDS: amLODIPine BESYLATE 5 MG TABLET PO ×2 (08:03→14:04)
[2024-06-25] MEDS: SENNA TABLET 1 TAB PO (08:03)
[2024-06-25] MEDS: LOSARTAN POTASSIUM 25 MG TABLET 100 MG PO (08:03)
[2024-06-25] MEDS: APIXABAN 2.5 MG TABLET PO ×2 (08:03→21:02)
[2024-06-25] MEDS: AMOXICILLIN/POT CLAV 500 MG TABLET PO ×2 (08:04→21:02)
[2024-06-25] MEDS: PREGABALIN 75 MG CAPSULE PO ×2 (08:04→21:03)
[2024-06-25] MEDS: AMIODARONE HCL 200 MG TABLET 100 MG PO (08:04)
--- NOTE | 2024-06-25 10:35 | PD.RESDS ---
Planned Discharge Date 06/25/24 DS: Providers Provider Date of admission: 06/23/24 14:26 Primary care physician: Mulu Denise MD Admitting Provider: Don Woodard MD Attending Provider on Admission: Neena Adames DO Consults: 06/22/24 19:58 Consult to Gastroenterology Stat Comment: Intractable Abd Pain Consulting Provider: Johnnie Narayanan Consult to Neurology / Tele-Neurology Stat Comment: Neck Pain Consulting Provider: Nhan Simeon 06/22/24 20:00 Referral Physical Therapy Stat Comment: Physician Instructions: Attending Provider on DC: Honey Heaton MD Discharging Provider: Honey Heaton MD Hospital Course Hospital Course Hospital course: Mr. Montgomery is a 88-year-old male with past medical history of atrial fibrillation, type 2 diabetes mellitus (A1c 5.7), hypertension, hyperlipidemia and chronic kidney disease who presented to [facility] emergency department from home on 06/22/2024 with a chief complaint of abdominal pain and neck pain x 1 week. Abdominal pain was described as burning, epigastric, non-radiating, worst with meals. Also endorses headaches worsened by the abdominal pain. Patient was admitted for intractable abdominal pain. Regarding the neck pain, initial head CT imaging report read a possible lesion in the pontine level. Tele-neuro and neurology were consulted. MRI did not show any infarct nor infarct in the brainstem. Cervical spine MRI did show significant spinal stenosis which may be contributing to the patient's neck pain. Regarding the patient's abdominal pain, patient underwent multiple imaging studies including CT abdomen and pelvis with and without contrast, renal and liver ultrasound, and KUB. CT abdomen pelvis significant for perinephric stranding, small fat-containing umbilical hernia, mild prostatomegaly. CTA abdomen and pelvis shows bibasilar bronchiectasis, moderate vascular congestion, vascular renal arterial calcification, mild thickening of rectal wall. The cat swamper was also consulted and patient underwent an EGD, which showed esophagitis and non-erosive gastritis. Biopsies were taken. Patient was started on a peptic ulcer diet, however patient continued to have abdominal pain with meals. He was treated with Mylanta, famotidine, metoclopramide, and bentyl, and sucralfate. Urine culture was positive for E. Coli and patient was started on antibiotics. Blood pressure was managed with anti-hypertensives. A 24-hour metanephrine urine test was ordered to rule out pheochromocytoma. Patient to be discharged to with the following recommendations: - Take augmentin to complete the course of antibiotics for your urine infection - Continue all home medications - Take protonix 40mg and sucralfate for your gastritis - Follow up with your primary care physician within 1 week of discharge. They will need to follow up on the results of the 24-hour metanephrine urine test. - Follow up with GI for the results of your biopsy. If you do not have a primary care physician, please follow up with the [facility] Residents clinic ([phone]) Time Spent with Patient Time attestation: Total time spent providing and/or coordinating discharge services: Home Health Home Health Referral Orders: 06/23/24 18:42 Home Health Referral Routine Reason For Exam: hypertension Home-Bound The patient must either because of illness or injury, need the aid of supportive devices such as crutches, canes, wheelchairs, and walkers; the use of special transportation; or the assistance of another person in order to leave their place of residence; OR have a condition such that leaving his or her home is medically contraindicated. In addition, the patient also meets the following criteria: patient is normally unable to leave the home and leaving home requires considerable taxing effort. Addendum to Home Health Certification Practitioner's Certification: I certify that the patient has been under my care in the hospital and the care of attending physician (see below). We had a [id number] encounter on (see date below). My clinical findings indicate that the patient is home bound per the above criteria and the Home Health Services noted in these orders are medically necessary. The primary reason for the [id number] encounter is related to the fact that the patient requires home health services. Date Certifying [id number] Physician Encounter: 06/22/24 Physician's Name who will Assume Oversight for Services: Mulu Denise Physician's Phone No.who will Assume Oversight for Service: DRIVER RECRUITER - Community Resources: No PT to Evaluate: Yes PT to evaluate and provide a treatmnet plan to increase patient's mobility and strength. Wound Care: No IV Therapy: No RN Safety Evaluation: Yes RN to evaluate and create a plan of care that will produce positive outcomes. Palliative Treatment: No Palliative treatment and evaluate the need for hospice. Home Health Aide - Personal Care: Yes Home Health Aide to assist with any ADL's. Exam Vital Signs Temp Pulse Resp BP Pulse Ox O2 Del Method O2 Flow Rate 97.6 F 59 L 20 162/81 H 94 L Room Air 2 06/25/24 04:00 06/25/24 08:04 06/25/24 04:00 06/25/24 08:04 06/25/24 04:00 06/25/24 04:00 06/25/24 04:00 Narrative Exam Constitutional: Pleasant elderly male, resting comfortably HEENT: NCAT. Vision grossly intact. Mucous membranes moist. Respiratory: CTAB bilaterally. Cardiac: Normal S1, S2. No MRG appreciated. Abdomen: BS+. Soft, non-distended, non-tender. Mild epigastric tenderness. MSK: No B/L LE edema. Skin: Warm, dry, intact. No obvious lesions. Neuro: Motor and sensation grossly intact. Psychiatric: Appropriate mood and affect. Discharge Plan Plan Patient Disposition: Home w/HOME HEALTH Patient condition on transfer: Stable Prescriptions/Referrals Prescriptions/Med Rec: New amlodipine 2.5 mg Tablet 2.5 mg PO QDAY 30 Days Qty: 30 0RF amoxicillin-pot clavulanate 500-125 mg Tablet 1 tab PO BID 7 Days Qty: 14 0RF pantoprazole 40 mg tablet,delayed release (DR/EC) 40 mg PO QDAY Qty: 30 0RF sucralfate 100 mg/mL suspension 5 ml PO QID PRN (Reason: indigestion) Qty: 400 0RF Rx Instructions: swish in mouth and swallow; use after food/drink Continued atorvastatin [Lipitor] 10 mg tablet 10 mg PO QDAY pregabalin 75 mg capsule 75 mg PO 1XD Eliquis 2.5 mg tablet 2.5 mg PO 2XD Codi-Adrienne 0.8 mg tablet 1 tab PO Q24H Patient Comments: TAKE 1 TABLET BY MOUTH DAILY losartan 50 mg tablet 100 mg PO 1XD Patient Comments: TAKE 1 TABLET BY MOUTH EVERY DAY Changed amiodarone 200 mg Tablet 100 mg PO QDAY Qty: 30 0RF Discontinued clonidine HCl 0.1 mg tablet 0.1 mg PO BID Qty: 60 0RF glipizide 2.5 mg tablet extended release 24hr 2.5 mg PO 1XD Patient Comments: TAKE 1 TABLET BY MOUTH EVERY DAY WITH BREAKFAST Jardiance 25 mg tablet 25 mg PO QDAY Referrals: Mulu Denise MD [Primary Care Provider] - Patient/Caregiver Discharge Instructions Other Discharge Activity Instructions:: Please f/u with PCP within 1 week of discharge Print Language: German Stand Alone Forms: Amarilis Award Info., Patient Portal Info Letter, Important Information
--- NOTE | 2024-06-25 10:37 | PD.IMPROG ---
Documentation for date of: 06/25/24 Subjective Subjective Interval history: Patient continues to have postprandial pain reviewed the KUB Patient has a lot of stool impaction with the stool right colon as well as transverse colon descending colon sigmoid colon and rectum Clear liquid diet GoLytely prep Colonoscopy a.m. Exam Vital Signs Temp Pulse Resp BP Pulse Ox O2 Del Method O2 Flow Rate 97.6 F 59 L 20 162/81 H 94 L Room Air 2 06/25/24 04:00 06/25/24 08:04 06/25/24 04:00 06/25/24 08:04 06/25/24 04:00 06/25/24 04:00 06/25/24 04:00 Objective Labs 06/25/24 04:57 06/25/24 04:57 Labs: Laboratory Results - last 24 hr 06/25/24 04:57 WBC 6.0 RBC 4.36 L Hgb 12.7 L Hct 37.9 L MCV 87 MCH 29.1 MCHC 33.5 RDW Std Deviation 47.6 H Plt Count 150 Neut % (Auto) 54 Lymph % (Auto) 33 [place] % (Auto) 10 Eos % (Auto) 3 Baso % (Auto) 1 Neut # (Auto) 3.2 Lymph # (Auto) 2.0 [place] # (Auto) 0.6 Eos # (Auto) 0.2 Baso # (Auto) 0.0 Immature Gran # (Auto) 0.01 H Absolute Nucleated RBC 0.00 Immature Gran % 0 Nucleated RBC % 0 Sodium 138 Potassium 5.0 Chloride 106 Carbon Dioxide 27.4 Anion Gap 5 L BUN 33 H Creatinine 1.4 H Estim Creat Clear Calc 37.7 L eGFR 49 L BUN/Creatinine Ratio 24 H Glucose 80 Calculated Osmolality 281 Calcium 9.1 Corrected Calcium 9.2 Phosphorus 3.2 Magnesium 2.2 Total Bilirubin 0.3 AST 22 ALT 33 Alkaline Phosphatase 71 Total Protein 6.5 Albumin 3.9 D Globulin 2.6 Albumin/Globulin Ratio 1.5 Impressions Impression: Stool impaction Pain abdomen secondary to 1 Plan GoLytely Clear liquid diet Consent obtained for fiberoptic colonoscopy with possible biopsy possible therapeutic intervention under intravenous moderate sedation Assessment & Plan A&P Narrative # Pain abdomen epigastric etiology uncertain No evidence on CT scan imaging of mesenteric ischemia Suggest Gallbladder ultrasound Fiberoptic esophagogastroduodenoscopy with possible biopsy possible therapeutic intervention scheduled for tomorrow Other medical problems include Diabetes mellitus type 2 Essential hypertension Hyperlipidemia CKD Acute left brainstem infarct Thank you very much for the opportunity to participate in the care of this patient Time Spent With Patient Time: Total time spent is greater than 50% in coordination of care (as documented) at patient's floor/unit and/or counseling patient:
[2024-06-25] MEDS: NA SU/NAHCO3/KC/PEG (Golytely) 4,000 ML BTL 4000 ML PO (11:36)
--- NOTE | 2024-06-25 14:19 | PD.RESPRO ---
Documentation for date of: 06/25/24 Subjective Subjective Interval history: Patient seen and examined at bedside. Continues to have prandial pain 6/10 and headache. Collecting 24-hr urine for metanephrine urine test. Blood pressure elevated, will increase amlodipine. Plan for colonoscopy with GI. Exam Vital Signs Temp Pulse Resp BP Pulse Ox O2 Del Method O2 Flow Rate 97.7 F 57 L 18 166/79 H 95 Room Air 2 06/25/24 12:00 06/25/24 14:04 06/25/24 12:04 06/25/24 14:04 06/25/24 12:00 06/25/24 12:00 06/25/24 04:00 Narrative Exam Constitutional: NAD. Awake, alert, sitting up right. HEENT: NCAT. Vision grossly intact. Mucous membranes moist. Respiratory: CTAB bilaterally. Cardiac: RRR. Abdomen: BS+. Soft, non-distended, non-tender. Skin: Warm, dry, intact. No obvious lesions. Neuro: Motor and sensation grossly intact. Psychiatric: Appropriate mood and affect. Objective Labs 06/26/24 08:08 06/26/24 08:08 Labs: Laboratory Results - last 24 hr 06/25/24 04:57 WBC 6.0 RBC 4.36 L Hgb 12.7 L Hct 37.9 L MCV 87 MCH 29.1 MCHC 33.5 RDW Std Deviation 47.6 H Plt Count 150 Neut % (Auto) 54 Lymph % (Auto) 33 [place] % (Auto) 10 Eos % (Auto) 3 Baso % (Auto) 1 Neut # (Auto) 3.2 Lymph # (Auto) 2.0 [place] # (Auto) 0.6 Eos # (Auto) 0.2 Baso # (Auto) 0.0 Immature Gran # (Auto) 0.01 H Absolute Nucleated RBC 0.00 Immature Gran % 0 Nucleated RBC % 0 Sodium 138 Potassium 5.0 Chloride 106 Carbon Dioxide 27.4 Anion Gap 5 L BUN 33 H Creatinine 1.4 H Estim Creat Clear Calc 37.7 L eGFR 49 L BUN/Creatinine Ratio 24 H Glucose 80 Calculated Osmolality 281 Calcium 9.1 Corrected Calcium 9.2 Phosphorus 3.2 Magnesium 2.2 Total Bilirubin 0.3 AST 22 ALT 33 Alkaline Phosphatase 71 Total Protein 6.5 Albumin 3.9 D Globulin 2.6 Albumin/Globulin Ratio 1.5 Quality Measures Quality Measures none Advance care planning discussed with:: patient Assessment & Plan Assessment Current Active Medications: Generic Name Dose Route Start Last Admin Trade Name Freq PRN Reason Stop Dose Admin Acetaminophen 650 mg 06/22/24 19:57 Acetaminophen 325 Mg Tablet PO 07/22/24 19:49 Q6H PRN Pain Scale 1-3 (Mild,Fever>101 Hydrocodone Bitart/Acetaminophen 1 tab 06/22/24 19:50 06/24/24 20:59 Hydrocodone/Apap 10/325 Tab PO 06/27/24 19:49 1 tab Q4H PRN Administration PAIN SCALE 4-6 (Moderate Al Hydrox/Mg Hydrox/Simethicone 30 ml 06/24/24 16:34 06/24/24 21:00 Mg Hyd/Al Hyd/Evan (Maalox Reg) Susp 30 Ml Udc PO 07/24/24 16:33 30 ml Q4HR PRN Administration UPSET STOMACH/INDIGESTION Amiodarone HCl 100 mg 06/24/24 09:00 06/25/24 08:04 Amiodarone Hcl 200 Mg Tablet PO 07/24/24 08:59 100 mg QDAY MILVIA Administration Amlodipine Besylate 10 mg 06/26/24 09:00 Amlodipine Besylate 5 Mg Tablet PO 07/26/24 08:59 QDAY MILVIA Amoxicillin/Clavulanate Potassium 500 mg 06/24/24 11:00 06/25/24 08:04 Amoxicillin/Pot Clav 500 Mg Tablet PO 07/01/24 10:59 500 mg BID MILVIA Administration Apixaban 2.5 mg 06/22/24 21:00 06/25/24 08:03 Apixaban 2.5 Mg Tablet PO 07/22/24 20:59 2.5 mg BID MILVIA Administration Atorvastatin Calcium 10 mg 06/22/24 21:00 06/24/24 21:00 Atorvastatin Calcium 10 Mg Tablet PO 07/22/24 20:59 10 mg HS MILVIA Administration Dextrose 25 ml 06/22/24 19:50 06/23/24 05:53 Dextrose 50%-Water Inj 50 Ml Syringe IV 07/22/24 19:49 25 ml Q15MIN PRN Administration BG 50-70 responsive npo pt Dextrose 50 ml 06/22/24 19:50 Dextrose 50%-Water Inj 50 Ml Syringe IV 07/22/24 19:49 Q15MIN PRN BG <50 OR BG <70 & pt unresponsive Dicyclomine HCl 10 mg 06/25/24 09:00 Dicyclomine 10 Mg Capsule PO 07/25/24 08:59 QID PRN CRAMPS Famotidine 10 mg 06/25/24 09:00 06/25/24 08:02 Famotidine Inj 10 Mg/Ml Vial 2 Ml IVP 07/23/24 08:59 10 mg QDAY MILVIA Administration Glucagon 1 mg 06/22/24 19:50 Glucagon Inj 1 Mg Vial IM Q15MIN PRN BG <70, and no IV access Hydromorphone HCl 0.25 mg 06/22/24 19:50 Hydromorphone Inj 2 Mg/Ml Vial IVP 06/27/24 19:49 Q4H PRN Severe Pain (7-10) Insulin Human Lispro 0 unit 06/23/24 07:30 06/25/24 11:46 Insulin Lispro (Admelog) 1 Unit/0.01 Ml Unit SC 07/23/24 07:29 Not Given AC MILIVA Protocol Lidocaine HCl 15 ml 06/24/24 16:34 06/24/24 21:00 Lidocaine Viscous 2% 15 Ml Udc PO 07/24/24 16:33 15 ml Q4HR PRN Administration LOCAL ANESTHESIA Losartan Potassium 100 mg 06/24/24 12:30 06/25/24 08:03 Losartan Potassium 25 Mg Tablet PO 07/23/24 08:59 100 mg QDAY MILVIA Administration Metoclopramide HCl 5 mg 06/24/24 18:00 06/25/24 11:36 Metoclopramide Inj 5 Mg/Ml Vial 2 Ml IVP 07/24/24 17:59 5 mg Q6HR MILVIA Administration Protocol Ondansetron HCl 4 mg 06/22/24 19:50 Ondansetron Inj 2 Mg/Ml Inj 2 Ml IV 07/22/24 19:49 Q6H PRN NAUSEA OR VOMITING Protocol Polyethylene Glycol 17 gm 06/24/24 22:05 06/25/24 08:02 Polyethylene Glycol 17 Gm Packet PO 07/24/24 22:04 17 gm QDAY MILVIA Administration Pregabalin 75 mg 06/22/24 21:00 06/25/24 08:04 Pregabalin 75 Mg Capsule PO 07/22/24 20:59 75 mg BID MILVIA Administration Sennosides 1 tab 06/23/24 09:00 06/25/24 08:03 Senna Tablet PO 07/23/24 08:59 1 tab QDAY MILVIA Administration Protocol Sucralfate 1 gm 06/24/24 14:00 06/25/24 14:04 Sucralfate 1 Gm Tablet PO 07/24/24 13:59 1 gm TID MILVIA Administration Plan Clayton Montgomery is a 88-year-old male with past medical history of atrial fibrillation, type 2 diabetes mellitus, hypertension, hyperlipidemia and chronic kidney disease who presented to [facility] emergency department from home on 06/22/2024 with a chief complaint of abdominal pain and neck pain. #Intractable abdominal pain #Esophagtitis/gastritis Patient complains of mid epigastric pain, burning. High suspicion of GERD/peptic ulcer disease. CT abdomen pelvis significant for perinephric stranding, small fat-containing umbilical hernia, mild prostatomegaly. Abdomen pelvis CTA shows bibasilar bronchiectasis, moderate vascular congestion, vascular renal arterial calcification, mild thickening of rectal wall EGD 2019: Small Erosion Esophagus, Small Hiatal Hernia Plan: -Consulted GI, plan for colonoscopy tomorrow -Follow-up on biopsies -Zofran as needed -IV Famoidine QDay -Pain Management with viscous lidocaine, Maalox, sucralfate, bentyl #Headache #Cervical spinal stenosis Head CT showed subtle low-density in left brainstem level; not seen on MRI. MRI cervical spine showed significant cervical spinal stenosis. No acute stroke. Plan: -Neurology is not concerned with acute stroke at this time. Commendations were to continue stretching exercises and use squeezing/Play-Thierry to help with fine motor movements/handgrip. #Asymptomatic bradycardia Patient remains asymptomatic. Aircraft Time Clerk Dr. Capone has been notified of patient's admission. States that patient patient has been worked up and remains asymptomatic with the bradycardia. Currently heart rate ranging 30?40s. EKG showing normal P, QRS complexes. -Recommendations were to decrease amiodarone to 100 mg daily -Monitor electrolytes -Follow-up outpatient #Paroxysmal atrial fibrillation EKG significant for sinus bradycardia, QTc 377, OK 224 Plan: -Amiodarone decreased to 100 mg daily -Continue Eliquis 2.5 mg twice daily -Tele Monitoring -Keep K >4 , Mg >2 #Chronic kidney disease IIIa renal ultrasound significant for small kidneys with bilateral renal cortical thinning, moderate bilateral renal parenchymal scar formation. BUN 27 Cr 1.5 GFR 45 on admission Plan: -Monitor Renal Panel in AM -Avoid Nephrotoxic Agents -Dose Meds renally #History of type 2 diabetes On admission initial glucose 186. Last A1c on 02/07/2024 6.0. Patient takes Jardiance 25 mg, glipizide 2.5 mg daily, for diabetes at home 06/23 A1c 5.7 -Held home medications -Bedside blood glucose checks ACHS -Insulin lispro sliding scale -Carb consistent low diet -Consulted diplomatic officer -Diabetes education -Recommend stopping glypizide outpatient #Pseudohyponatremia-resolved #Hypertension #Hyperlipidemia -Increased amlodipine to 10mg daily -Started losartan 100 mg daily -Resumed home dose atorvastatin 10 mg daily -Follow-up on 24-hour urine metanephrine test to rule out pheochromocytoma. At this time, most likely hypertension due to underlying stressing factors and abdominal pain. There was improvement in BP after starting losartan and increasing amlodipine. -trend BP -adjust as needed Health Maintenance Dispo: colonoscopy tomorrow DVT prophylaxis: Eliquis GI prophylaxis: Famotidine daily Diet: CLD Lines: Peripheral IV Code status: Full code I have reviewed and discussed the patient's care with my attending, Dr. Zacarias Heaton MD PGY-3 Attending Provider Attestation/Addendum INeena DO, attest that I was physically present for the flores portions of the service and evaluated the patient with the resident and I reviewed and discussed the case with the resident and agree with the resident's findings and plans of care as documented above Pt seen and evaluated this Am. He states he continues to have dull epigastric pain rated at 6/10. He also states he woke up with a headache due to elevated BP. Will increase amlodipine. Case discussed with GI, plan for colonoscopy tomorrow. 24 urine collection to be completed at 3pm. Anticipate discharge within next 24h once colonoscopy is done.
[2024-06-25 17:04] LABS: Misc Send Out* See Sep Rpt
[2024-06-25] MEDS: ATORVASTATIN CALCIUM 10 MG TABLET PO (21:02)
[2024-06-25] MEDS: bisacodyL 5 MG TABEC 10 MG PO (21:02)
[2024-06-25] MEDS: HYDROcodone/APAP 10/325 TAB PO (21:02)
--- NOTE | 2024-06-25 23:54 | VVPN_ITS ---
Telemedicine visit statement This visit was conducted with the use of phone was obtained on 06/25/24 at 2354. Documentation for date of: 06/25/24 Subjective Subjective Interval history: Patient is in MedSurg. No new symptoms reported. Waiting for colonoscopy, he is getting preparation . Virtual exam Vital Signs Temp Pulse Resp BP Pulse Ox O2 Del Method O2 Flow Rate 97.6 F 56 L 18 166/77 H 95 Room Air 2 06/25/24 20:00 06/25/24 20:00 06/25/24 20:00 06/25/24 20:00 06/25/24 20:00 06/25/24 20:00 06/25/24 20:00 Objective Labs 06/25/24 04:57 06/25/24 04:57 Labs: Laboratory Results - last 24 hr 06/25/24 04:57 WBC 6.0 RBC 4.36 L Hgb 12.7 L Hct 37.9 L MCV 87 MCH 29.1 MCHC 33.5 RDW Std Deviation 47.6 H Plt Count 150 Neut % (Auto) 54 Lymph % (Auto) 33 [place] % (Auto) 10 Eos % (Auto) 3 Baso % (Auto) 1 Neut # (Auto) 3.2 Lymph # (Auto) 2.0 [place] # (Auto) 0.6 Eos # (Auto) 0.2 Baso # (Auto) 0.0 Immature Gran # (Auto) 0.01 H Absolute Nucleated RBC 0.00 Immature Gran % 0 Nucleated RBC % 0 Sodium 138 Potassium 5.0 Chloride 106 Carbon Dioxide 27.4 Anion Gap 5 L BUN 33 H Creatinine 1.4 H Estim Creat Clear Calc 37.7 L eGFR 49 L BUN/Creatinine Ratio 24 H Glucose 80 Calculated Osmolality 281 Calcium 9.1 Corrected Calcium 9.2 Phosphorus 3.2 Magnesium 2.2 Total Bilirubin 0.3 AST 22 ALT 33 Alkaline Phosphatase 71 Total Protein 6.5 Albumin 3.9 D Globulin 2.6 Albumin/Globulin Ratio 1.5 Assessment & Plan Assessment 1) Headache: Status: Acute Assessment and plan: Reassurance given to the patient that this could be related to blood pressure fluctuation/clonidine can cause blood pressure fluctuation to Continue with better blood pressure control without dropping the heart rate. Noted his heart rate sometimes goes into the 30s. (2) Neuropathy: Status: Chronic Assessment and plan: Continue with pregabalin with close monitoring of his kidney function. Reassurance given to the patient regarding the tremors related to amiodarone and not Parkinson's/essential tremor Continue with stretching exercises and using squeezes/Play-Thierry to help with fine motor movements/handgrip. (3) Abdominal pain, lower: Status: Acute Assessment and plan: Going for colonoscopy tomorrow.
[2024-06-26] VITALS (18 sets, daily range): BP systolic 104–180; BP diastolic 49–90; PULSE 51–525; RESP 9–95; TEMP 36.1–36.6; O2SAT 94–100; BMI 28.8
[2024-06-26] MEDS: SUCRALFATE 1 GM TABLET PO ×2 (05:15→21:03)
[2024-06-26] MEDS: METOCLOPRAMIDE INJ 5 MG/ML VIAL 2 ML IVP ×4 (05:15→23:36)
[2024-06-26] MEDS: SENNA TABLET 1 TAB PO (08:05)
[2024-06-26] MEDS: POLYETHYLENE GLYCOL 17 GM PACKET PO (08:05)
[2024-06-26] MEDS: AMOXICILLIN/POT CLAV 500 MG TABLET PO ×2 (08:05→21:01)
[2024-06-26] MEDS: PREGABALIN 75 MG CAPSULE PO ×2 (08:05→21:04)
[2024-06-26] MEDS: APIXABAN 2.5 MG TABLET PO ×2 (08:06→21:02)
[2024-06-26] MEDS: LOSARTAN POTASSIUM 25 MG TABLET 100 MG PO (08:06)
[2024-06-26] MEDS: amLODIPine BESYLATE 5 MG TABLET 10 MG PO (08:07)
[2024-06-26] MEDS: AMIODARONE HCL 200 MG TABLET 100 MG PO (08:07)
[2024-06-26] MEDS: FAMOTIDINE INJ 10 MG/ML VIAL 2 ML IVP (08:08)
[2024-06-26 08:22] LABS: Basophils % (Auto) 1 % (0-2.5); Eosinophils # (Auto) 0.2 Thou/mm3 (0.0-0.5); Eosinophils % (Auto) 3 % (0-10); Hematocrit 40.7 % (41.0-53.0); Hemoglobin 13.9 g/dL (13.5-16.0); Immature Granulocytes % (Auto) 0 % (0-0); Immature Granulocytes Auto 0.02 Thou/mm3 (0.00-0.00); Lymphocytes # (Auto) 2.4 Thou/mm3 (1.0-4.8); Lymphocytes % (Auto) 34 % (10-50); Mean Corpuscular HGB Conc 34.2 g/dl (31.0-37.0); Mean Corpuscular Hemoglobin 29.3 pg (25.0-35.0); Mean Corpuscular Volume 86 fL (80-100); Monocytes # (Auto) 0.7 Thou/mm3 (0.0-0.8); Monocytes % (Auto) 10 % (0-12); Neutrophils # (Auto) 3.5 Thou/mm3 (1.8-7.7); Neutrophils % (Auto) 51 % (37-80); Nucleated Red Blood Cell % 0 /100 WBC (0); Platelet Count 175 Thou/mm3 (140-440); RDW Standard Deviation 46.4 fL (35.1-43.9); Red Blood Count 4.74 Miln/mm3 (4.50-5.90); White Blood Count 6.9 Thou/mm3 (3.8-10.6)
[2024-06-26 08:49] LABS: Anion Gap 7 (7-16); BUN/Creatinine Ratio 15 Ratio (12-20); Blood Urea Nitrogen 21 mg/dL (9-23); Carbon Dioxide 27.9 mMol/L (20.0-31.0); Chloride 108 mMol/L (98-107); Creatinine (Component) 1.4 mg/dL (0.6-1.3); Estimated Creatinine Clearance 37.7 mL/min (>60); Glucose 95 mg/dL (74-106); Osmolality,Calculated 287 (275-295); Potassium 4.5 mMol/L (3.4-5.1); Sodium 143 mMol/L (136-145); eGFR 49 See Note
--- NOTE | 2024-06-26 10:55 | PC.SS ---
Addendum entered by Ginny Heath 06/26/24 12:29: SS follow up note; SS met with patient to present SNF choices, Patient would like a private room and only facility that could offer that is [facility]. Patient would like to discharge to [facility] when medically cleared, SS updated Josselin from [facility]. Patient is pending a colonoscopy and will discharge after. SS will stand by for further needs. Original Note: SS follow note; SS was contacted by Patient's nurse, Jarodmelanie reported that patient's daughter, Delma reported that patient will need SNF. SS contacted patient's son, Oh and informed him if he would like for patient to discharge to SNF. Patients reported that his sister and himself will be making decisions for patient and 'monica recommend SNF then they are open to SNF. SS will submit for SNF placement and present choices of SNF when available. SS will submit PASSR as well.
--- NOTE | 2024-06-26 14:33 | ESPR_ITS ---
<Statement entered by Honey Heaton MD - 06/26/24 14:48> I discussed with and supervised my co-resident involved in the care of this patient. I agree with the assessment and plan as documented above. Yesterday, spoke to patient, patient's son and daugther, and granddaughter at length and reviewed all labs and imaging done so far. Reassurance given. This morning, patient seen at bedside sitting in chair. Denies any current abdominal pain. No acute complaints at this time. Plan for colonoscopy today. Family prefers SNF placement for patient upon discharge. Anticipate discharge within the next 24-48 hours. Honey Heaton MD PGY-3 Documentation for date of: 06/26/24 Subjective Subjective Interval history: Patient seen at bedside this morning. He was sitting comfortably on the couch watching TV. States that abdominal pain has significantly improved. Denies any headaches, dizziness, chest pain. Continue bowel prep for colonoscopy possibly this evening. Pressure control improving with amlodipine 10 mg, losartan 100 mg daily. 24-hour urine metanephrine test pending. Continues to remain bradycardic with heart rate ranging from 50?60. But asymptomatic. Continue Augmentin 500 mg twice daily for ESBL E. coli UTI Anticipate discharge in next 24-48 hours. Family has expressed interest in sending patient to SNF. Exam Vital Signs Temp Pulse Resp BP Pulse Ox O2 Del Method O2 Flow Rate 97.1 F 62 14 130/68 100 Room Air 3 06/26/24 12:00 06/26/24 14:30 06/26/24 14:30 06/26/24 14:30 06/26/24 14:30 06/26/24 12:00 06/26/24 14:30 Narrative Exam General: elderly male. No acute distress, cooperative, sitting comfortably on chair HEENT: NCAT, No JVD noted. Mucosa moist. Pupils are equal and reactive to light bilaterally Cardiovascular: Normal S1 and S2. Regular rhythm, bradycardic Respiratory: Lungs are clear to auscultation bilaterally. No wheezing or crackles heard. Abdomen: Soft, epigastric tenderness, not distended, normal bowel sounds. Skin: Warm to touch, dry, no rashes noted Musculoskeletal: No gross injuries. Able to move all 4 extremities. No pitting edema Neuro: Alert and oriented x3. No focal neuro deficits. Psych: Normal affect and mood Objective Labs 06/26/24 08:08 06/26/24 08:08 Labs: Laboratory Results - last 24 hr 06/26/24 08:08 WBC 6.9 RBC 4.74 Hgb 13.9 Hct 40.7 L MCV 86 MCH 29.3 MCHC 34.2 RDW Std Deviation 46.4 H Plt Count 175 Neut % (Auto) 51 Lymph % (Auto) 34 [place] % (Auto) 10 Eos % (Auto) 3 Baso % (Auto) 1 Neut # (Auto) 3.5 Lymph # (Auto) 2.4 [place] # (Auto) 0.7 Eos # (Auto) 0.2 Baso # (Auto) 0.0 Immature Gran # (Auto) 0.02 H Absolute Nucleated RBC 0.00 Immature Gran % 0 Nucleated RBC % 0 Sodium 143 Potassium 4.5 D Chloride 108 H Carbon Dioxide 27.9 Anion Gap 7 BUN 21 Creatinine 1.4 H Estim Creat Clear Calc 37.7 L eGFR 49 L BUN/Creatinine Ratio 15 Glucose 95 Calculated Osmolality 287 Calcium 10.0 Quality Measures Quality Measures none Advance care planning discussed with:: patient Assessment & Plan Assessment Current Active Medications: Generic Name Dose Route Start Last Admin Trade Name Freq PRN Reason Stop Dose Admin Acetaminophen 650 mg 06/22/24 19:57 Acetaminophen 325 Mg Tablet PO 07/22/24 19:49 Q6H PRN Pain Scale 1-3 (Mild,Fever>101 Hydrocodone Bitart/Acetaminophen 1 tab 06/22/24 19:50 06/25/24 21:02 Hydrocodone/Apap 10/325 Tab PO 06/27/24 19:49 1 tab Q4H PRN Administration PAIN SCALE 4-6 (Moderate Al Hydrox/Mg Hydrox/Simethicone 30 ml 06/24/24 16:34 06/24/24 21:00 Mg Hyd/Al Hyd/Evan (Maalox Reg) Susp 30 Ml Udc PO 07/24/24 16:33 30 ml Q4HR PRN Administration UPSET STOMACH/INDIGESTION Amiodarone HCl 100 mg 06/24/24 09:00 06/26/24 08:07 Amiodarone Hcl 200 Mg Tablet PO 07/24/24 08:59 100 mg QDAY MILVIA Administration Amlodipine Besylate 10 mg 06/26/24 09:00 06/26/24 08:07 Amlodipine Besylate 5 Mg Tablet PO 07/26/24 08:59 10 mg QDAY MILVIA Administration Amoxicillin/Clavulanate Potassium 500 mg 06/24/24 11:00 06/26/24 08:05 Amoxicillin/Pot Clav 500 Mg Tablet PO 07/01/24 10:59 500 mg BID MILVIA Administration Apixaban 2.5 mg 06/22/24 21:00 06/26/24 08:06 Apixaban 2.5 Mg Tablet PO 07/22/24 20:59 2.5 mg BID MILVIA Administration Atorvastatin Calcium 10 mg 06/22/24 21:00 06/25/24 21:02 Atorvastatin Calcium 10 Mg Tablet PO 07/22/24 20:59 10 mg HS MILVIA Administration Bisacodyl 10 mg 06/26/24 13:56 Bisacodyl 10 Mg Supp MD 06/26/24 15:57 X1 PRN Gas pain Dextrose 25 ml 06/22/24 19:50 06/23/24 05:53 Dextrose 50%-Water Inj 50 Ml Syringe IV 07/22/24 19:49 25 ml Q15MIN PRN Administration BG 50-70 responsive npo pt Dextrose 50 ml 06/22/24 19:50 Dextrose 50%-Water Inj 50 Ml Syringe IV 07/22/24 19:49 Q15MIN PRN BG <50 OR BG <70 & pt unresponsive Dicyclomine HCl 10 mg 06/25/24 09:00 Dicyclomine 10 Mg Capsule PO 07/25/24 08:59 QID PRN CRAMPS Diphenhydramine HCl 25 mg 06/26/24 13:56 Diphenhydramine Inj 50 Mg/Ml Vial IV 06/26/24 15:56 PRNMRX1 PRN MODERATE SEDATION Famotidine 10 mg 06/25/24 09:00 06/26/24 08:08 Famotidine Inj 10 Mg/Ml Vial 2 Ml IVP 07/23/24 08:59 10 mg QDAY MILVIA Administration Fentanyl Citrate 50 mcg 06/26/24 13:56 Fentanyl Cit Inj 50 Mcg/Ml Amp 2ml IV 06/26/24 15:56 Q2M PRN MODERATE SEDATION Glucagon 1 mg 06/22/24 19:50 Glucagon Inj 1 Mg Vial IM Q15MIN PRN BG <70, and no IV access Insulin Human Lispro 0 unit 06/23/24 07:30 06/26/24 11:36 Insulin Lispro (Admelog) 1 Unit/0.01 Ml Unit SC 07/23/24 07:29 Not Given AC MILVIA Protocol Lidocaine HCl 15 ml 06/24/24 16:34 06/24/24 21:00 Lidocaine Viscous 2% 15 Ml Udc PO 07/24/24 16:33 15 ml Q4HR PRN Administration LOCAL ANESTHESIA Losartan Potassium 100 mg 06/24/24 12:30 06/26/24 08:06 Losartan Potassium 25 Mg Tablet PO 07/23/24 08:59 100 mg QDAY MILVIA Administration Metoclopramide HCl 5 mg 06/24/24 18:00 06/26/24 12:03 Metoclopramide Inj 5 Mg/Ml Vial 2 Ml IVP 07/24/24 17:59 5 mg Q6HR MILVIA Administration Protocol Midazolam HCl 2 mg 06/26/24 13:56 Midazolam Inj 1 Mg/Ml Vial 2 Ml IV 06/26/24 15:56 Q2M PRN Moderate Sedation Ondansetron HCl 4 mg 06/22/24 19:50 Ondansetron Inj 2 Mg/Ml Inj 2 Ml IV 07/22/24 19:49 Q6H PRN NAUSEA OR VOMITING Protocol Polyethylene Glycol 17 gm 06/24/24 22:05 06/26/24 08:05 Polyethylene Glycol 17 Gm Packet PO 07/24/24 22:04 17 gm QDAY MILVIA Administration Pregabalin 75 mg 06/22/24 21:00 06/26/24 08:05 Pregabalin 75 Mg Capsule PO 07/22/24 20:59 75 mg BID MILVIA Administration Sennosides 1 tab 06/23/24 09:00 06/26/24 08:05 Senna Tablet PO 07/23/24 08:59 1 tab QDAY MILVIA Administration Protocol Simethicone 80 mg 06/25/24 15:29 Simethicone 80 Mg Chew PO 07/25/24 15:28 QID PRN GAS Sucralfate 1 gm 06/24/24 14:00 06/26/24 13:09 Sucralfate 1 Gm Tablet PO 07/24/24 13:59 Not Given TID MILVIA Plan Clayton Montgomery is a 88-year-old male with past medical history of atrial fibrillation, type 2 diabetes mellitus, hypertension, hyperlipidemia and chronic kidney disease who presented to [facility] emergency department from home on 06/22/2024 with a chief complaint of abdominal pain and neck pain. #Intractable abdominal pain #Esophagtitis/gastritis Patient complains of mid epigastric pain, burning. High suspicion of GERD/peptic ulcer disease. CT abdomen pelvis significant for perinephric stranding, small fat-containing umbilical hernia, mild prostatomegaly. Abdomen pelvis CTA shows bibasilar bronchiectasis, moderate vascular congestion, vascular renal arterial calcification, mild thickening of rectal wall EGD 2019: Small Erosion Esophagus, Small Hiatal Hernia Plan: -Consulted GI, colonoscopy pending -Follow-up on biopsies -Zofran as needed -IV Famoidine QDay -Pain Management with viscous lidocaine, Maalox, sucralfate, bentyl PRN #Headache #Cervical spinal stenosis Head CT showed subtle low-density in left brainstem level; not seen on MRI. MRI cervical spine showed significant cervical spinal stenosis. No acute stroke. Plan: -Neurology is not concerned with acute stroke at this time. Commendations were to continue stretching exercises and use squeezing/Play-Thierry to help with fine motor movements/handgrip. -Acetaminophen 650 mg as needed #Asymptomatic bradycardia Patient remains asymptomatic. Carbonizer Dr. Capone has been notified of patient's admission. States that patient patient has been worked up and remains asymptomatic with the bradycardia. Currently heart rate ranging 30?40s. EKG showing normal P, QRS complexes. -continue amiodarone 100 mg daily -Monitor electrolytes -Follow-up outpatient #Paroxysmal atrial fibrillation EKG significant for sinus bradycardia, QTc 377, MD 224 Plan: -Amiodarone 100 mg daily -Continue Eliquis 2.5 mg twice daily -Tele Monitoring -Keep K >4 , Mg >2 #Chronic kidney disease IIIa renal ultrasound significant for small kidneys with bilateral renal cortical thinning, moderate bilateral renal parenchymal scar formation. BUN 27 Cr 1.5 GFR 45 on admission Plan: -Monitor Renal Panel in AM -Avoid Nephrotoxic Agents -Dose Meds renally #History of type 2 diabetes On admission initial glucose 186. Last A1c on 02/07/2024 6.0. Patient takes Jardiance 25 mg, glipizide 2.5 mg daily, for diabetes at home 2/ A1c 5.7 -Held home medications -Bedside blood glucose checks ACHS -Insulin lispro sliding scale -Carb consistent low diet -Consulted hazardous materials driver -Diabetes education -Recommend stopping glypizide outpatient #Pseudohyponatremia-resolved #Hypertension #Hyperlipidemia -Increased amlodipine to 10mg daily -Started losartan 100 mg daily -Resumed home dose atorvastatin 10 mg daily -Follow-up on 24-hour urine metanephrine test to rule out pheochromocytoma. At this time, most likely hypertension due to underlying stressing factors and abdominal pain. There was improvement in BP after starting losartan and increasing amlodipine. -trend BP -adjust as needed Health Maintenance Dispo: colonoscopy pending DVT prophylaxis: Eliquis GI prophylaxis: Famotidine daily Diet: CLD Lines: Peripheral IV Code status: Full code I have reviewed and discussed the patient's care with my attending, Dr. Adames and senior Dr. Heaton. Jeanna Denise PGY1 Attending Provider Attestation/Addendum INeena DO, attest that I was physically present for the flores portions of the service and evaluated the patient with the resident and I reviewed and discussed the case with the resident and agree with the resident's findings and plans of care as documented above Patient seen and evaluated this a.m. No acute events overnight. Patient states that he is feeling well after completing colon prep. Plan for colonoscopy today. Blood pressure better controlled at this time. Patient denies any active headache, dizziness, chest pain or shortness of breath. Will follow-up with colonoscopy results. Anticipate discharge within the next 24 hours. Patient will need SNF placement as per family request.
--- NOTE | 2024-06-26 14:50 | SUR.PHASEI ---
0503 Patient arrived to recovery, report received from Chelle MEYER
--- NOTE | 2024-06-26 15:29 | SUR.PHASEI ---
1521 Report given to Quita MEYER, patient meets discharge criteria from recovery, awake and alert, breathing unlabored, vital signs stable, denies pain, drinking water; tolerating well 1529 Patient transported via gurney to room 356 without incident, SKIN GRADER arrived promptly to patients room, patient able to ambulate from [facility] to bed with stand by assist from this card writer hand, patient resting comfortably in bed with family member at bedside, patient sitting up in bed ready to eat his meal tray when this card writer hand left patients room
[2024-06-26] MEDS: ATORVASTATIN CALCIUM 10 MG TABLET PO (21:02)
[2024-06-26] MEDS: HYDROcodone/APAP 10/325 TAB PO (21:06)
[2024-06-27] VITALS (9 sets, daily range): BP systolic 103–162; BP diastolic 62–88; PULSE 55–83; RESP 12–20; TEMP 35.9–36.9; O2SAT 94–97
--- NOTE | 2024-06-27 | ESPR_ITS ---
Documentation for date of: 06/26/24 Subjective Subjective Interval history: Patient was seen and MedSurg today with his family at the bedside. His headache and the neck pain are resolved. Upper GI endoscopy to evaluate for abdominal pain showed gastritis and esophagitis. Colonoscopy showed diverticulitis and colonic polyps which were removed. Patient is able to tolerate oral diet better today and felt little more stronger compared to few days before admission. Exam - Neurology Vital Signs Temp Pulse Resp BP Pulse Ox O2 Del Method O2 Flow Rate 97.6 F 53 L 18 127/66 95 Room Air 3 06/26/24 20:00 06/26/24 20:00 06/26/24 20:00 06/26/24 20:00 06/26/24 20:00 06/26/24 20:00 06/26/24 20:00 Narrative Exam GENERAL APPEARANCE: Well hydrated, well-nourished in no acute distress. HEENT: Normocephalic, atraumatic, extraocular movements intact. Pupils: Equal reacting to light and accommodation NECK: Supple, no JVD or bruits. CARDIOVASULAR: Heart: S1, S2 heard, regular without S3-S4 or murmur no rubs or gallops. LUNGS/CHEST: Clear to auscultation bilaterally. No rails, rhonchi, or wheezing. Normal inspection. ABDOMEN: Soft, nontender, with normal bowel sounds. No pulsatile masses. No rebound, rigidity, or guarding. Normal inspection and palpation. EXTREMITIES: Normal inspection and palpation. No edema, clubbing or cyanosis. SKIN: Warm and dry without rashes. Normal inspection. MUSCULOSKELETAL: No cervical, thoracic, lumbar or midline bony tenderness. Normal inspection. NEURO: Alert, awake and oriented x3. Cranial nerves: II through XII grossly intact. Speech and language: Normal with no dysarthria or dysphasia. Motor system: Tone and bulk: Normal: Strength: 5 out of 5 in all 4 extremities; No pronator drift noted. Deep tendon reflexes: 2+ bilaterally symmetrical. Plantar reflex: Downgoing bilaterally. Sensory system: Intact to all modalities of sensation bilaterally. Coordination: Intact to [id number] and [id number] test bilaterally. No ataxia, no dysmetria, or dysdiadochokinesia noted. No intention tremors noted. Gait: Normal, walked with the physical therapist today . Toe, heel, tandem walk all are normal. Romberg: Negative. No signs of meningeal irritation noted. PSYCHIATRIC: Normal mood and affect. Objective Labs 06/26/24 08:08 06/26/24 08:08 Labs: Laboratory Results - last 24 hr 06/26/24 08:08 WBC 6.9 RBC 4.74 Hgb 13.9 Hct 40.7 L MCV 86 MCH 29.3 MCHC 34.2 RDW Std Deviation 46.4 H Plt Count 175 Neut % (Auto) 51 Lymph % (Auto) 34 [place] % (Auto) 10 Eos % (Auto) 3 Baso % (Auto) 1 Neut # (Auto) 3.5 Lymph # (Auto) 2.4 [place] # (Auto) 0.7 Eos # (Auto) 0.2 Baso # (Auto) 0.0 Immature Gran # (Auto) 0.02 H Absolute Nucleated RBC 0.00 Immature Gran % 0 Nucleated RBC % 0 Sodium 143 Potassium 4.5 D Chloride 108 H Carbon Dioxide 27.9 Anion Gap 7 BUN 21 Creatinine 1.4 H Estim Creat Clear Calc 37.7 L eGFR 49 L BUN/Creatinine Ratio 15 Glucose 95 Calculated Osmolality 287 Calcium 10.0 Assessment & Plan Assessment and plan (1) Headache: Status: Acute Assessment and plan: Reassurance given to the patient that this could be related to blood pressure fluctuation/clonidine can cause blood pressure fluctuation to Continue with better blood pressure control without dropping the heart rate. MRI brain showed age-related white matter changes . (2) Neuropathy: Status: Chronic Assessment and plan: Continue with pregabalin with close monitoring of his kidney function. Reassurance given to the patient regarding the tremors related to amiodarone and not Parkinson's/essential tremor Continue with stretching exercises and using squeezes/Play-Thierry to help with fine motor movements/handgrip. Family is leaning more towards short-term acute rehab placement. (3) Abdominal pain, lower: Status: Acute Assessment and plan: Colonoscopy showed diverticulosis and colonic polyp. Pathology report will follow
[2024-06-27] MEDS: METOCLOPRAMIDE INJ 5 MG/ML VIAL 2 ML IVP ×2 (05:38→15:47)
[2024-06-27] MEDS: SUCRALFATE 1 GM TABLET PO ×2 (05:39→15:47)
[2024-06-27 06:01] LABS: Basophils # (Auto) 0.1 Thou/mm3 (0.0-0.2); Basophils % (Auto) 1 % (0-2.5); Eosinophils # (Auto) 0.3 Thou/mm3 (0.0-0.5); Eosinophils % (Auto) 5 % (0-10); Hematocrit 42.2 % (41.0-53.0); Hemoglobin 14.1 g/dL (13.5-16.0); Immature Granulocytes % (Auto) 0 % (0-0); Immature Granulocytes Auto 0.02 Thou/mm3 (0.00-0.00); Lymphocytes # (Auto) 2.5 Thou/mm3 (1.0-4.8); Lymphocytes % (Auto) 39 % (10-50); Mean Corpuscular HGB Conc 33.4 g/dl (31.0-37.0); Mean Corpuscular Hemoglobin 28.7 pg (25.0-35.0); Mean Corpuscular Volume 86 fL (80-100); Monocytes # (Auto) 0.6 Thou/mm3 (0.0-0.8); Monocytes % (Auto) 10 % (0-12); Neutrophils # (Auto) 2.9 Thou/mm3 (1.8-7.7); Neutrophils % (Auto) 45 % (37-80); Nucleated Red Blood Cell % 0 /100 WBC (0); Platelet Count 169 Thou/mm3 (140-440); RDW Standard Deviation 46.7 fL (35.1-43.9); Red Blood Count 4.91 Miln/mm3 (4.50-5.90); White Blood Count 6.4 Thou/mm3 (3.8-10.6)
[2024-06-27 06:42] LABS: Anion Gap 8 (7-16); BUN/Creatinine Ratio 18 Ratio (12-20); Blood Urea Nitrogen 25 mg/dL (9-23); Carbon Dioxide 25.3 mMol/L (20.0-31.0); Chloride 107 mMol/L (98-107); Creatinine (Component) 1.4 mg/dL (0.6-1.3); Estimated Creatinine Clearance 37.6 mL/min (>60); Glucose 85 mg/dL (74-106); Osmolality,Calculated 282 (275-295); Potassium 4.8 mMol/L (3.4-5.1); Sodium 140 mMol/L (136-145); eGFR 49 See Note
--- NOTE | 2024-06-27 08:51 | ESPR_ITS ---
Documentation for date of: 06/27/24 Exam Vital Signs Temp Pulse Resp BP Pulse Ox O2 Del Method O2 Flow Rate 96.6 F L 80 14 152/88 H 96 Room Air 3 06/27/24 07:20 06/27/24 07:20 06/27/24 07:20 06/27/24 07:20 06/27/24 07:20 06/27/24 07:20 06/27/24 04:00 Objective Labs 06/27/24 05:35 06/27/24 05:35 Labs: Laboratory Results - last 24 hr 06/26/24 06/27/24 08:08 05:35 WBC 6.4 RBC 4.91 Hgb 14.1 Hct 42.2 MCV 86 MCH 28.7 MCHC 33.4 RDW Std Deviation 46.7 H Plt Count 169 Neut % (Auto) 45 Lymph % (Auto) 39 [place] % (Auto) 10 Eos % (Auto) 5 Baso % (Auto) 1 Neut # (Auto) 2.9 Lymph # (Auto) 2.5 [place] # (Auto) 0.6 Eos # (Auto) 0.3 Baso # (Auto) 0.1 Immature Gran # (Auto) 0.02 H Absolute Nucleated RBC 0.00 Immature Gran % 0 Nucleated RBC % 0 Sodium 143 140 Potassium 4.5 D 4.8 Chloride 108 H 107 Carbon Dioxide 27.9 25.3 Anion Gap 7 8 BUN 21 25 H Creatinine 1.4 H 1.4 H Estim Creat Clear Calc 37.7 L 37.6 L eGFR 49 L 49 L BUN/Creatinine Ratio 15 18 Glucose 95 85 Calculated Osmolality 287 282 Calcium 10.0 10.0 Assessment & Plan A&P Narrative # Pain abdomen epigastric etiology uncertain No evidence on CT scan imaging of mesenteric ischemia Suggest Gallbladder ultrasound Fiberoptic esophagogastroduodenoscopy with possible biopsy possible therapeutic intervention scheduled for tomorrow Other medical problems include Diabetes mellitus type 2 Essential hypertension Hyperlipidemia CKD Acute left brainstem infarct Thank you very much for the opportunity to participate in the care of this patient Time Spent With Patient Time: Total time spent is greater than 50% in coordination of care (as documented) at patient's floor/unit and/or counseling patient:
[2024-06-27] MEDS: AMOXICILLIN/POT CLAV 500 MG TABLET PO (09:20)
[2024-06-27] MEDS: AMIODARONE HCL 200 MG TABLET 100 MG PO (09:21)
[2024-06-27] MEDS: amLODIPine BESYLATE 5 MG TABLET 10 MG PO (09:21)
[2024-06-27] MEDS: LOSARTAN POTASSIUM 25 MG TABLET 100 MG PO (09:22)
[2024-06-27] MEDS: FAMOTIDINE INJ 10 MG/ML VIAL 2 ML IVP (09:22)
[2024-06-27] MEDS: SENNA TABLET 1 TAB PO (09:23)
[2024-06-27] MEDS: POLYETHYLENE GLYCOL 17 GM PACKET PO (09:23)
[2024-06-27] MEDS: APIXABAN 2.5 MG TABLET PO (09:23)
[2024-06-27] MEDS: PREGABALIN 75 MG CAPSULE PO (09:23)
--- NOTE | 2024-06-27 11:25 | PC.SS ---
SS follow up note; SS was contacted by Josselin from [employer], informed SS that room won't be available until 6PM. SS informed patient and patient's daughter as well as patients nurse Lisa. Patients family will transport patient.
--- NOTE | 2024-06-27 12:47 | ESDS_ITS ---
<Statement entered by Neena Adames DO - 06/27/24 16:02> I, Neena Adames DO, attest that I was physically present for the flores portions of the service and evaluated the patient with the resident and I reviewed and discussed the case with the resident and agree with the resident's findings and plans of care as documented above Planned Discharge Date 06/27/24 DS: Providers Provider Date of admission: 06/23/24 14:26 Primary care physician: Mulu Denise MD Admitting Provider: Don Woodard MD Attending Provider on Admission: Neena Adames DO Consults: 06/22/24 19:58 Consult to Gastroenterology Stat Comment: Intractable Abd Pain Consulting Provider: Johnnie Narayanan Consult to Neurology / Tele-Neurology Stat Comment: Neck Pain Consulting Provider: Nhan Simeon 06/22/24 20:00 Referral Physical Therapy Stat Comment: Physician Instructions: Attending Provider on DC: Jeanna Denise MD Discharging Provider: Jeanna Denise MD DS: Diagnosis Problem List Completed Was Problem List Reviewed/Reconciled?: Yes Hospital Course Hospital Course Hospital course: Reason for hospitalization: abdominal and head pain Clayton Montgomery is 88 yr male with PMH of atrial fibrillation, type 2 diabetes mellitus, hypertension, hyperlipidemia and chronic kidney disease who presented to [facility] on 06/22/24 due to abdominal pain and headache for a week. He was admitted for workup and management of pain. Patient was recently discharged from ED with clonidine on 06/16/24 after presenting with similar symptoms and high BP. Family at bedside stated that patient had fell at home. CT head was negative for acute hemorrhage, mass, or midline affect. It showed a subtle low-density in left brainstem pontine level. Tele neuro was consulted, stating that less likely patient had acute stroke. MRI brain confirmed no acute stroke. CT cervical spine negative for fracture but significant spinal stenosis. During hospitalization, patient was hypertensive 180 systolic which improved after amlodipine was increased to 10 mg daily and losartan 100 mg daily. 24 hr urinary metanephrine test results are still pending. Due to patient's asymptomatic bradycardia (HR 30-40s), amiodarone was decreased from 200 mg to 100 mg daily per patient's records management director Dr. Capone. Bradycardia improved and he remained in normal sinus rhythm. GI Dr. Narayanan was consulted for evaluation of abdominal pain. Endoscopy showed esophagitis/gastritis with biopsies still pending. Colonoscopy showed hemorrhoids, moderate diverticulosis with no bleeding, and 1 large polyp that was removed. CT A/P and CTA A/P showed mild prostatomegaly, small fat-containing umbilical hernia, no hydronephrosis or ureteral calculi. Renal u/s showed small kidneys with bilateral renal cortical thinning, moderate bilateral renal parenchymal scar formation. KUB showed showed moderate air and stool throughout colon, no obstruction. Patient's abdominal pain eventually resolved with viscous lidocaine, Maalox, and sucralfate. He was noted to have ESBL E.coli on urine culture sensitive to augmentin. Patient to complete 7 day course of augmentin 500mg BID until 07/01. All questions and concerns from family were thoroughly addressed. Patient is now in stable condition and ready for discharge to nursing facility for PT. Recommendations were given as below. Discharge Recommendations: Stop taking clonidine 0.1 mg, glipizide 2.5 mg due to UTI, and Jardiance 25 mg. Continue amiodarone 100 mg daily For BP control, continue amlodipine 10 mg daily, losartan 100mg daily. For stomach pain, take Maalox and sucralfate as needed. For constipation, add lactulose to previous regimen. Take as needed. Please f/u with PCP within 1 week of discharge Hospital Diagnoses: #Intractable abdominal pain likely 2/2 constipation #Esophagtitis/gastritis #Uncontrolled HTN #Cervical spinal stenosis #Asymptomatic bradycardia #Paroxysmal atrial fibrillation #Chronic kidney disease IIIa #History of type 2 diabetes #Pseudohyponatremia-resolved #Hypertension #Hyperlipidemia The patient's management plan was discussed with my attending physician Dr. Adames and senior Dr. Heaton. Jeanna Denise MD, PGY-1 Time Spent with Patient Time attestation: Total time spent providing and/or coordinating discharge services: Time spent: Greater than 30 minutes Exam Vital Signs Temp Pulse Resp BP Pulse Ox O2 Del Method O2 Flow Rate 96.7 F L 80 12 130/73 97 Room Air 3 06/27/24 11:45 06/27/24 11:45 06/27/24 11:45 06/27/24 11:45 06/27/24 11:45 06/27/24 11:45 06/27/24 04:00 Narrative Exam General: elderly male. No acute distress, cooperative, sitting comfortably on chair HEENT: NCAT, No JVD noted. Mucosa moist. Pupils are equal and reactive to light bilaterally Cardiovascular: Normal S1 and S2. RRR Respiratory: Lungs are clear to auscultation bilaterally. No wheezing or crackles heard. Abdomen: Soft, mild epigastric tenderness, not distended, normal bowel sounds. Skin: Warm to touch, dry, no rashes noted Musculoskeletal: No gross injuries. Able to move all 4 extremities. No pitting edema Neuro: Alert and oriented x3. No focal neuro deficits. Psych: Normal affect and mood Discharge Plan Plan Patient Disposition: Xfer Skilled Nsg Fac (SNF) Patient condition on transfer: Stable Prescriptions/Referrals Prescriptions/Med Rec: New pantoprazole 40 mg tablet,delayed release (DR/EC) 40 mg PO QDAY Qty: 30 0RF sucralfate 100 mg/mL suspension 5 ml PO QID PRN (Reason: indigestion) Qty: 400 0RF Rx Instructions: swish in mouth and swallow; use after food/drink amlodipine 10 mg tablet 10 mg PO QDAY 30 Days Qty: 30 0RF alum-mag hydroxide-simeth [Mag-Al Plus] 200-200-20 mg/5 mL Suspension 30 ml PO Q4HR PRN (Reason: Upset Stomach/Indigestion) Qty: 3000 0RF polyethylene glycol 3350 [HealthyLax] 17 gram Powder In Packet 17 g PO QDAY Qty: 30 0RF simethicone 80 mg Tablet,Chewable 80 mg PO QID PRN (Reason: Gas) Qty: 30 0RF amoxicillin-pot clavulanate 875-125 mg tablet 1 tab PO BID Qty: 12 0RF lactulose 10 gram packet 20 g PO QDAY PRN (Reason: constipation) Qty: 15 0RF Continued atorvastatin [Lipitor] 10 mg tablet 10 mg PO QDAY pregabalin 75 mg capsule 75 mg PO 1XD Eliquis 2.5 mg tablet 2.5 mg PO 2XD Codi-Adrienne 0.8 mg tablet 1 tab PO Q24H Patient Comments: TAKE 1 TABLET BY MOUTH DAILY losartan 50 mg tablet 100 mg PO 1XD Patient Comments: TAKE 1 TABLET BY MOUTH EVERY DAY Changed amiodarone 200 mg Tablet 100 mg PO QDAY Qty: 30 0RF Discontinued clonidine HCl 0.1 mg tablet 0.1 mg PO BID Qty: 60 0RF glipizide 2.5 mg tablet extended release 24hr 2.5 mg PO 1XD Patient Comments: TAKE 1 TABLET BY MOUTH EVERY DAY WITH BREAKFAST Jardiance 25 mg tablet 25 mg PO QDAY Referrals: Mulu Denise MD [Primary Care Provider] - Patient/Caregiver Discharge Instructions Other Discharge Activity Instructions:: Stop taking clonidine 0.1 mg, glipizide 2.5 mg due to UTI, and Jardiance 25 mg. Continue amiodarone 100 mg daily For BP control, continue amlodipine 10 mg daily, losartan 100mg daily. For stomach pain, take Maalox and sucralfate as needed. For constipation, add lactulose to previous regimen. Take as needed. Please f/u with PCP within 1 week of discharge Education Materials: Abdominal Pain, ED Constipation (Adult) Print Language: Tajik Stand Alone Forms: [facility] Award Info., Patient Portal Info Letter, Important Information Discharge Order Discharge Orders: Discharge (Routine); Ordered 06/27/24 Ordered By: Jeanna Denise Quality Discharge Quality Measures VTE prophylaxis
--- NOTE | 2024-06-27 16:48 | PC.NURSE ---
DC info given ove the phone to receiving nurse at [facility] TICK ERADICATOR
--- NOTE | 2024-06-27 17:22 | PC.NURSE ---
Pt DC per md heaton. Pt aaox4 and stable. accompained by family daughter and son via wheelchair to go on families private transportation.
--- NOTE | 2024-06-29 09:00 | PC.CC ---
pt is discharged to SNF. HH referral is canceled.
== END 2024-06-27 17:21 | disposition skilled nursing facility (03) | DRG 389 ==
LOC: SERX 19:39 → S3NX 06-23 06:22 → SERHOLD 06-26 06:18
PROVIDERS: Nurse Practitioner Family; Specialist; Student in an Organized Health Care Education/Training Program; Admitting Provider Student in an Organized Health Care Education/Training Program; Emergency Provider Emergency Medicine; PCP Internal Medicine; Visit Provider Internal Medicine
PROC: 0DB38ZX Excision of Lower Esophagus, Via Natural or Artificial Opening Endoscopic, Diagnostic (ICD-10-PCS; CPT 43239; principal; 2024-06-23 18:45)
PROC: 0DJD8ZZ Inspection of Lower Intestinal Tract, Via Natural or Artificial Opening Endoscopic (ICD-10-PCS; CPT 45378; principal; 2024-06-26 14:15)
DX: K56.41 Fecal impaction (principal); N39.0 Urinary tract infection, site not specified; Z16.12 Extended spectrum beta lactamase (ESBL) resistance; I12.9 Hypertensive chronic kidney disease with stage 1 through stage 4 chronic kidney disease, or unspecified chronic kidney disease; N18.31 Chronic kidney disease, stage 3a; E11.22 Type 2 diabetes mellitus with diabetic chronic kidney disease; I48.0 Paroxysmal atrial fibrillation; K20.90 Esophagitis, unspecified without bleeding; K29.60 Other gastritis without bleeding; K64.9 Unspecified hemorrhoids; K57.30 Diverticulosis of large intestine without perforation or abscess without bleeding; D12.5 Benign neoplasm of sigmoid colon; B96.20 Unspecified Escherichia coli [E. coli] as the cause of diseases classified elsewhere; E11.40 Type 2 diabetes mellitus with diabetic neuropathy, unspecified; J47.9 Bronchiectasis, uncomplicated; K42.9 Umbilical hernia without obstruction or gangrene; R93.0 Abnormal findings on diagnostic imaging of skull and head, not elsewhere classified; E78.5 Hyperlipidemia, unspecified; M48.02 Spinal stenosis, cervical region; N27.1 Small kidney, bilateral; M50.33 Other cervical disc degeneration, cervicothoracic region; R00.1 Bradycardia, unspecified; N40.0 Benign prostatic hyperplasia without lower urinary tract symptoms; G89.29 Other chronic pain; Z90.49 Acquired absence of other specified parts of digestive tract; Z91.81 History of falling; Z79.01 Long term (current) use of anticoagulants; Z79.899 Other long term (current) drug therapy
CPT/HCPCS: 36415; 70450; 70551; 71045; 72125; 72141; 74018; 74174; 74176; 76705; 76770; 80048; 80053; 80061; 81001; 83036; 83605; 83690; 83735; 84100; 84132; 84145; 84153; 84443; 84484; 85025; 85610; 85652; 85730; 86140; 87077; 87081; 87086; 87186; 87811; 93005; 93225; 96361; 96372; 96374; 96375; 96376; 97162; 99285; A4649; G0378; J1200; J1885; J2250; J2270; J2405; J2765; J3010; J3490; J7030; Q0162; Q9967; A9270

== ENCOUNTER → 2024-07-07 | Outpatient (CLI) | payer MEDICARE, BC, SELFPAY ==
[2024-07-07 09:40] LABS: Basophils % (Auto) 1 % (0-2.5); Eosinophils # (Auto) 0.2 Thou/mm3 (0.0-0.5); Eosinophils % (Auto) 3 % (0-10); Hematocrit 42.2 % (41.0-53.0); Hemoglobin 14.3 g/dL (13.5-16.0); Immature Granulocytes % (Auto) 0 % (0-0); Immature Granulocytes Auto 0.02 Thou/mm3 (0.00-0.00); Lymphocytes # (Auto) 1.7 Thou/mm3 (1.0-4.8); Lymphocytes % (Auto) 23 % (10-50); Mean Corpuscular HGB Conc 33.9 g/dl (31.0-37.0); Mean Corpuscular Hemoglobin 28.8 pg (25.0-35.0); Mean Corpuscular Volume 85 fL (80-100); Monocytes # (Auto) 0.5 Thou/mm3 (0.0-0.8); Monocytes % (Auto) 6 % (0-12); Neutrophils % (Auto) 67 % (37-80); Nucleated Red Blood Cell % 0 /100 WBC (0); Platelet Count 177 Thou/mm3 (140-440); RDW Standard Deviation 45.8 fL (35.1-43.9); Red Blood Count 4.97 Miln/mm3 (4.50-5.90); White Blood Count 7.5 Thou/mm3 (3.8-10.6)
[2024-07-07 09:43] LABS: Glucose Estimated Average 117 mg/dL (80-131); Hemoglobin A1C 5.7 % Hgb (4.8-6.0)
[2024-07-07 09:49] LABS: Prostate Specific Antigen 7.35 ng/mL (0-4.00)
[2024-07-07 10:07] LABS: Alanine Aminotransferase 45 U/L (10-49); Albumin, Serum 4.5 gm/dL (3.4-4.8); Albumin/Globulin Ratio 1.5 (1.2-2.2); Alkaline Phosphatase 86 U/L (46-116); Anion Gap 8 (7-16); Aspartate Amino Transferase 38 U/L (0-34); BUN/Creatinine Ratio 25 Ratio (12-20); Bilirubin,Total 0.3 mg/dL (0.3-1.2); Blood Urea Nitrogen 38 mg/dL (9-23); Calcium 10.1 mg/dL (8.3-10.6); Calcium (Corrected) 10.1 mg/dL (8.5-10.1); Cardiac Risk Estimate 2.3 RATIO (4.0-6.7); Chloride 104 mMol/L (98-107); Cholesterol 149 mg/dL (132-200); Creatinine (Component) 1.5 mg/dL (0.6-1.3); Glucose 109 mg/dL (74-106); HDL Cholesterol 66 mg/dL (40-60); LDL Cholesterol,Calculated 39 mg/dL (0-130); Osmolality,Calculated 285 (275-295); Potassium 5.5 mMol/L (3.4-5.1); Sodium 138 mMol/L (136-145); Thyroid Stimulating Hormone 3.54 uIU/mL (0.55-4.78); Total Protein 7.5 gm/dL (5.7-8.2); Triglycerides 221 mg/dL (30-150); eGFR 45 See Note
== END | disposition home or self-care (01) ==
LOC: COPL 08:25
PROVIDERS: PCP Internal Medicine; Referring Provider Internal Medicine; Visit Provider Internal Medicine
DX: I12.9 Hypertensive chronic kidney disease with stage 1 through stage 4 chronic kidney disease, or unspecified chronic kidney disease (principal); E11.22 Type 2 diabetes mellitus with diabetic chronic kidney disease; N18.31 Chronic kidney disease, stage 3a; E11.42 Type 2 diabetes mellitus with diabetic polyneuropathy; G62.9 Polyneuropathy, unspecified; I48.91 Unspecified atrial fibrillation; R97.20 Elevated prostate specific antigen [PSA]; Z13.220 Encounter for screening for lipoid disorders; Z79.899 Other long term (current) drug therapy
CPT/HCPCS: 36415; 80053; 80061; 83036; 84100; 84153; 84443; 85025

== ENCOUNTER → 2024-07-11 | Outpatient (CLI) | payer MEDICARE, BC, SELFPAY ==
--- NOTE | 2024-07-11 10:30 | XR_ITS ---
Examination: CT abdomen with intravenous contrast. Coronal 2-D reconstructions. Sagittal 2-D reconstructions. Date and time of exam:July 11, 2024 at 11:23 AM Indications: Pain and in the flank on the left side beginning June 23, 2024 CTDI: vol (mGy): 9.46 DLP: (mGycm): 298 Technique: Axial images of the abdomen have been obtained, 3 mm slice thickness, 30 cc [id number]-[id number] 2-D sagittal coronal reconstructions Low dose protocols were performed. One or more of the following dose reduction techniques were used; automated exposure control, adjustment of the mA and/or KV according to patient size, use of iterative reconstruction technique. Findings: Mild enlargement cardiac contour Suspicious for edema at the lung bases Liver irregular in contour Absent gallbladder Spleen pancreas not enlarged Normal adrenal glands Perinephric stranding with mild to moderate bilateral renal parenchymal scar formation No renal or ureteral calculi Aorta normal size Normal appendix No bowel obstruction Colonic diverticulosis Impression: Suspicious for heart failure Primary hepatocellular disease Absent gallbladder Mild to moderate bilateral renal parenchymal scar formation, perinephric stranding consider urinary tract infection
== END | disposition home or self-care (01) ==
PROVIDERS: PCP Internal Medicine; Referring Provider Internal Medicine; Visit Provider Internal Medicine
DX: K76.9 Liver disease, unspecified (principal); N28.89 Other specified disorders of kidney and ureter; Z90.49 Acquired absence of other specified parts of digestive tract
CPT/HCPCS: 74160; A4649; Q9967

== ENCOUNTER → 2024-08-17 | Outpatient (CLI) | payer MEDICARE, BC, SELFPAY ==
[2024-08-17 10:50] LABS: Albumin, Serum 3.9 gm/dL (3.4-4.8); Anion Gap 5 (7-16); BUN/Creatinine Ratio 18 Ratio (12-20); Blood Urea Nitrogen 23 mg/dL (9-23); Calcium 9.3 mg/dL (8.3-10.6); Calcium (Corrected) 9.4 mg/dL (8.5-10.1); Carbon Dioxide 30.1 mMol/L (20.0-31.0); Chloride 105 mMol/L (98-107); Creatinine (Component) 1.3 mg/dL (0.6-1.3); Free T4 (Free Thyroxine) 1.42 ng/dL (0.89-1.76); Glucose 120 mg/dL (74-106); Osmolality,Calculated 284 (275-295); Phosphorous 2.9 mg/dL (2.4-5.1); Potassium 5.3 mMol/L (3.4-5.1); Sodium 140 mMol/L (136-145); Thyroid Stimulating Hormone 2.43 uIU/mL (0.55-4.78); eGFR 53 See Note
== END | disposition home or self-care (01) ==
LOC: COPL 09:33
PROVIDERS: PCP Internal Medicine; Referring Provider Internal Medicine Cardiovascular Disease; Visit Provider Internal Medicine
DX: E78.2 Mixed hyperlipidemia (principal); I10 Essential (primary) hypertension; I48.0 Paroxysmal atrial fibrillation; N17.9 Acute kidney failure, unspecified
CPT/HCPCS: 36415; 80069; 84439; 84443

== ENCOUNTER → 2024-10-02 | Outpatient (CLI) | payer MEDICARE, BC, SELFPAY ==
[2024-10-02 08:49] LABS: Glucose Estimated Average 111 mg/dL (80-131); Hemoglobin A1C 5.5 % Hgb (4.8-6.0)
[2024-10-02 09:09] LABS: Albumin, Serum 4.2 gm/dL (3.4-4.8); Anion Gap 6 (7-16); BUN/Creatinine Ratio 18 Ratio (12-20); Blood Urea Nitrogen 31 mg/dL (9-23); Carbon Dioxide 26.3 mMol/L (20.0-31.0); Chloride 108 mMol/L (98-107); Creatinine (Component) 1.7 mg/dL (0.6-1.3); Glucose 121 mg/dL (74-106); Osmolality,Calculated 286 (275-295); Potassium 4.9 mMol/L (3.4-5.1); Sodium 140 mMol/L (136-145); eGFR 38 See Note
== END | disposition home or self-care (01) ==
LOC: COPL 07:35
PROVIDERS: PCP Internal Medicine; Referring Provider Internal Medicine; Visit Provider Obstetrics & Gynecology
DX: E11.22 Type 2 diabetes mellitus with diabetic chronic kidney disease (principal); N18.31 Chronic kidney disease, stage 3a
CPT/HCPCS: 36415; 80069; 83036

== ENCOUNTER → 2024-11-08 | Outpatient (CLI) | payer MEDICARE, BC, SELFPAY ==
[2024-11-08 12:38] LABS: Parathyroid Hormone Intact 130.9 pg/ml (18.5-88.0); Prostate Specific Antigen 6.64 ng/mL (0-4.00)
[2024-11-08 12:41] LABS: Albumin, Serum 4.3 gm/dL (3.4-4.8); Anion Gap 7 (7-16); BUN/Creatinine Ratio 13 Ratio (12-20); Blood Urea Nitrogen 21 mg/dL (9-23); Calcium 9.2 mg/dL (8.3-10.6); Calcium (Corrected) 9.2 mg/dL (8.5-10.1); Carbon Dioxide 25.8 mMol/L (20.0-31.0); Chloride 105 mMol/L (98-107); Creatinine (Component) 1.6 mg/dL (0.6-1.3); Glucose 84 mg/dL (74-106); Osmolality,Calculated 277 (275-295); Phosphorous 3.9 mg/dL (2.4-5.1); Potassium 4.6 mMol/L (3.4-5.1); Sodium 138 mMol/L (136-145); eGFR 41 See Note
[2024-11-08 13:09] LABS: Collection Type, Urine Clean Catch
[2024-11-08 13:23] LABS: Bilirubin,Urine Negative (Negative); Blood,Urine Negative (Negative); Clarity,Urine Clear (Clear/Hazy); Color,Urine Lt-Yellow (Lt Yel-Yel); Glucose, Urine 3+ (Negative); Ketones,Urine Negative (Negative); Leukocyte Esterase,Urine Negative (Negative); Nitrite,Urine Negative (Negative); PH,Urine 6.5 (5.0-7.0); Protein,Urine Negative (Neg - Trace); RBC,Urine 1 /hpf (0-3); Specific Gravity,Urine 1.007 (1.001-1.035); Squamous Epithelial Cell,Urine 1 /hpf (0-5); Urobilinogen,Urine Negative mg/dL (0.0-1.0); WBC,Urine 1 /hpf (0-5)
[2024-11-08 13:29] LABS: Creatinine,Random Urine 22 mg/dL (30-125)
== END | disposition home or self-care (01) ==
LOC: COPL 11:55
PROVIDERS: PCP Internal Medicine; Referring Provider Urology; Visit Provider Internal Medicine
DX: N40.1 Benign prostatic hyperplasia with lower urinary tract symptoms (principal); N18.30 Chronic kidney disease, stage 3 unspecified
CPT/HCPCS: 36415; 80069; 81001; 82570; 83970; 84153

== ENCOUNTER → 2024-11-10 | Outpatient (BNVA) | payer MEDICARE, BC, SELFPAY | END | disposition home or self-care (01) | PROVIDERS: PCP Internal Medicine Cardiovascular Disease; Referring Provider Internal Medicine Cardiovascular Disease; Visit Provider Urology | DX: N40.1 Benign prostatic hyperplasia with lower urinary tract symptoms (principal); N13.8 Other obstructive and reflux uropathy; R97.20 Elevated prostate specific antigen [PSA]; I12.9 Hypertensive chronic kidney disease with stage 1 through stage 4 chronic kidney disease, or unspecified chronic kidney disease; E11.22 Type 2 diabetes mellitus with diabetic chronic kidney disease; N18.30 Chronic kidney disease, stage 3 unspecified; E78.00 Pure hypercholesterolemia, unspecified; I48.91 Unspecified atrial fibrillation; K21.9 Gastro-esophageal reflux disease without esophagitis | CPT/HCPCS: 81003; 99212; G0463 ==

== ENCOUNTER → 2024-12-08 | Outpatient (CLI) | payer MEDICARE, BC, SELFPAY ==
[2024-12-08 12:30] LABS: Albumin, Serum 4.4 gm/dL (3.4-4.8); Anion Gap 8 (7-16); BUN/Creatinine Ratio 16 Ratio (12-20); Blood Urea Nitrogen 25 mg/dL (9-23); Calcium 9.2 mg/dL (8.3-10.6); Calcium (Corrected) 9.2 mg/dL (8.5-10.1); Carbon Dioxide 28.3 mMol/L (20.0-31.0); Chloride 103 mMol/L (98-107); Creatinine (Component) 1.6 mg/dL (0.6-1.3); Glucose 82 mg/dL (74-106); Osmolality,Calculated 280 (275-295); Phosphorous 2.7 mg/dL (2.4-5.1); Potassium 5.0 mMol/L (3.4-5.1); Sodium 139 mMol/L (136-145); eGFR 41 See Note
== END | disposition home or self-care (01) ==
LOC: COPL 11:20
PROVIDERS: PCP Internal Medicine; Referring Provider Internal Medicine Cardiovascular Disease; Visit Provider Internal Medicine Cardiovascular Disease
DX: I10 Essential (primary) hypertension (principal); E78.5 Hyperlipidemia, unspecified
CPT/HCPCS: 36415; 80069

== ENCOUNTER → 2025-01-03 | Outpatient (CLI) | payer MEDICARE, BC, SELFPAY ==
[2025-01-03 15:56] LABS: Collection Type, Urine Clean Catch
[2025-01-03 16:40] LABS: Bilirubin,Urine Negative (Negative); Blood,Urine Negative (Negative); Clarity,Urine Clear (Clear/Hazy); Color,Urine Lt-Yellow (Lt Yel-Yel); Glucose, Urine Negative (Negative); Ketones,Urine Negative (Negative); Leukocyte Esterase,Urine Positive (Negative); Nitrite,Urine Negative (Negative); PH,Urine 7.0 (5.0-7.0); Protein,Urine Negative (Neg - Trace); RBC,Urine 2 /hpf (0-3); Specific Gravity,Urine 1.008 (1.001-1.035); Squamous Epithelial Cell,Urine 1 /hpf (0-5); Urobilinogen,Urine Negative mg/dL (0.0-1.0); WBC,Urine 2 /hpf (0-5)
[2025-01-03 16:52] LABS: Albumin, Serum 4.3 gm/dL (3.4-4.8); Anion Gap 9 (7-16); BUN/Creatinine Ratio 13 Ratio (12-20); Blood Urea Nitrogen 23 mg/dL (9-23); Calcium 9.8 mg/dL (8.3-10.6); Calcium (Corrected) 9.8 mg/dL (8.5-10.1); Carbon Dioxide 28.4 mMol/L (20.0-31.0); Chloride 101 mMol/L (98-107); Creatinine (Component) 1.8 mg/dL (0.6-1.3); Glucose 136 mg/dL (74-106); Osmolality,Calculated 281 (275-295); Phosphorous 3.4 mg/dL (2.4-5.1); Potassium 5.0 mMol/L (3.4-5.1); Sodium 138 mMol/L (136-145); eGFR 36 See Note
== END | disposition home or self-care (01) ==
LOC: COPL 14:50
PROVIDERS: PCP Internal Medicine; Referring Provider Internal Medicine; Visit Provider Internal Medicine
DX: N17.9 Acute kidney failure, unspecified (principal)
CPT/HCPCS: 36415; 80069; 81001

== ENCOUNTER → 2025-03-05 | Outpatient (CLI) | payer MEDICARE, BC, SELFPAY ==
[2025-03-05 11:57] LABS: Collection Type, Urine Clean Catch
[2025-03-05 12:20] LABS: Parathyroid Hormone Intact 94.0 pg/ml (18.5-88.0)
[2025-03-05 12:23] LABS: Albumin, Serum 4.3 gm/dL (3.4-4.8); Anion Gap 8 (7-16); BUN/Creatinine Ratio 14 Ratio (12-20); Blood Urea Nitrogen 22 mg/dL (9-23); Calcium 9.4 mg/dL (8.3-10.6); Calcium (Corrected) 9.4 mg/dL (8.5-10.1); Carbon Dioxide 28.3 mMol/L (20.0-31.0); Chloride 104 mMol/L (98-107); Creatinine (Component) 1.6 mg/dL (0.6-1.3); Glucose 96 mg/dL (74-106); Osmolality,Calculated 282 (275-295); Phosphorous 3.2 mg/dL (2.4-5.1); Potassium 4.9 mMol/L (3.4-5.1); Sodium 140 mMol/L (136-145); eGFR 41 See Note
[2025-03-05 13:18] LABS: Bilirubin,Urine Negative (Negative); Blood,Urine Negative (Negative); Clarity,Urine Clear (Clear/Hazy); Color,Urine Yellow (Lt Yel-Yel); Glucose, Urine Negative (Negative); Ketones,Urine Negative (Negative); Leukocyte Esterase,Urine Positive (Negative); Nitrite,Urine Negative (Negative); PH,Urine 6.0 (5.0-7.0); Protein,Urine Negative (Neg - Trace); RBC,Urine 1 /hpf (0-3); Specific Gravity,Urine 1.011 (1.001-1.035); Squamous Epithelial Cell,Urine 1 /hpf (0-5); Urobilinogen,Urine Negative mg/dL (0.0-1.0); WBC,Urine 3 /hpf (0-5)
== END | disposition home or self-care (01) ==
LOC: COPL 11:04
PROVIDERS: PCP Internal Medicine; Referring Provider Internal Medicine; Visit Provider Internal Medicine
DX: N17.9 Acute kidney failure, unspecified (principal); I10 Essential (primary) hypertension
CPT/HCPCS: 36415; 80069; 81001; 83970

== ENCOUNTER → 2025-03-20 | Outpatient (CLI) | payer MEDICARE, BC, SELFPAY ==
--- NOTE | 2025-03-20 14:00 | XR_ITS ---
EXAMINATION: Nuclear medicine kidney imaging flow and function multiple studies Date and time: March 20, 2025, 1635 hours INDICATIONS: Lower urinary tract infection, diagnosis acute kidney failure unspecified, diabetes, hypertension, diagnosis chronic kidney disease stage III TECHNIQUE AND FINDINGS: Intravenous administration 10.6 mCi 99 M technetium MAG3 Flow and function curves generated bilaterally to 60 minutes Normal flow and function right kidney Minimally reduced flow left kidney, adequate renal function IMPRESSION: Adequate bilateral renal function
== END | disposition home or self-care (01) ==
LOC: SNUC 13:39
PROVIDERS: PCP Internal Medicine; Referring Provider Internal Medicine; Visit Provider Internal Medicine
DX: N17.9 Acute kidney failure, unspecified (principal)
CPT/HCPCS: 78709; A9562